=== PATIENT | male | born 1940 | race Caucasian/White ===

== ENCOUNTER 2016-03-16 08:00 | Outpatient (CLI) | payer MEDICARE | END 2016-03-16 08:01 | disposition home or self-care (01) | DX: I48.91 Unspecified atrial fibrillation (principal); Z95.4 Presence of other heart-valve replacement ==

== ENCOUNTER 2016-04-14 11:33 | Outpatient (CLI) | payer MEDICARE | END 2016-04-14 11:34 | disposition home or self-care (01) | DX: I48.91 Unspecified atrial fibrillation (principal); Z95.4 Presence of other heart-valve replacement ==

== ENCOUNTER 2016-05-12 10:07 | Outpatient (CLI) | payer MEDICARE | END 2016-05-12 10:08 | disposition home or self-care (01) | DX: I48.91 Unspecified atrial fibrillation (principal); Z95.4 Presence of other heart-valve replacement ==

== ENCOUNTER 2016-05-23 13:03 | Outpatient (CLI) | payer MEDICARE, OTHER | END 2016-05-23 13:04 | disposition home or self-care (01) | DX: G47.33 Obstructive sleep apnea (adult) (pediatric) (principal) | CPT/HCPCS: 99205; G0463 ==

== ENCOUNTER 2016-05-29 14:11 | Outpatient (CLI) | payer MEDICARE, OTHER | END 2016-05-29 14:12 | disposition home or self-care (01) | DX: N40.1 Benign prostatic hyperplasia with lower urinary tract symptoms (principal); I48.91 Unspecified atrial fibrillation; Z95.4 Presence of other heart-valve replacement ==

== ENCOUNTER 2016-06-28 08:00 | Outpatient (CLI) | payer MEDICARE, OTHER | END 2016-06-28 08:01 | disposition home or self-care (01) | DX: I48.91 Unspecified atrial fibrillation (principal); Z95.4 Presence of other heart-valve replacement ==

== ENCOUNTER 2016-07-26 10:33 | Outpatient (CLI) | payer MEDICARE, OTHER | END 2016-07-26 10:34 | disposition home or self-care (01) | LOC: LAB.F 10:33 | PROVIDERS: ATTEND Internal Medicine Cardiovascular Disease | DX: I48.91 Unspecified atrial fibrillation (principal); Z95.4 Presence of other heart-valve replacement | CPT/HCPCS: 85610 ==

== ENCOUNTER 2016-08-24 10:46 | Outpatient (CLI) | payer MEDICARE, OTHER | END 2016-08-24 10:47 | disposition home or self-care (01) | LOC: LAB.F 10:46 | PROVIDERS: ATTEND Internal Medicine Cardiovascular Disease | DX: I48.91 Unspecified atrial fibrillation (principal); Z95.4 Presence of other heart-valve replacement | CPT/HCPCS: 85610 ==

== ENCOUNTER 2016-09-18 00:48 | Outpatient (CLI) | payer MEDICARE, OTHER | END 2016-09-18 00:49 | disposition critical access hospital (66) | LOC: EMS 00:48 | PROVIDERS: ATTEND Surgery | DX: R50.9 Fever, unspecified (principal); R11.10 Vomiting, unspecified | CPT/HCPCS: A0425; A0429 ==

== ENCOUNTER 2016-09-18 01:11 | Inpatient (IN) | payer MEDICARE, OTHER ==
[2016-09-18] MEDS ORDERED: IBUPROFEN 800 MG TABLET PO STA (01:40)
[2016-09-18] MEDS ORDERED: SODIUM CHLORIDE 0.9% 1,000 ML IV ONE ×5 (01:40→11:53)
[2016-09-18] MEDS ORDERED: ONDANSETRON 4 MG/2 ML VIAL ONE (01:41)
[2016-09-18] MEDS ORDERED: cefTRIAXone 2 GM in SODIUM CHLORIDE 0.9% MINIBAG 100 ML IV STA (01:41)
[2016-09-18] MEDS ORDERED: ONDANSETRON 4 MG/2 ML VIAL IVP STA (01:41)
[2016-09-18] MEDS ORDERED: IBUPROFEN 800 MG TABLET PO ONE (01:41)
[2016-09-18 01:49] LABS: BASOPHILS % (AUTO) 0.5 %; EOSINOPHILS # (AUTO) 0.1 10^3/uL (0.0-0.7); EOSINOPHILS % (AUTO) 0.7 %; HGB - HEMOGLOBIN 12.1 g/dL (14.0-18.0); LYMPHOCYTES # (AUTO) 0.9 10^3/uL (1.5-3.5); LYMPHOCYTES % (AUTO) 10.4 %; MEAN CORPUSCULAR HEMOGLOBIN 31.1 pg (27.0-31.0); MEAN CORPUSCULAR HGB CONC 34.5 g/dL (32.0-36.0); MEAN CORPUSCULAR VOLUME 90.1 fL (80.0-94.0); MEAN PLATELET VOLUME 7.5 fL (7.4-11.4); MONOCYTES # (AUTO) 0.3 10^3/uL (0.0-1.0); NEUTROPHILS # (AUTO) 7.3 10^3/uL (1.5-6.6); NEUTROPHILS % (AUTO) 84.4 %; RED BLOOD COUNT 3.89 10^6/uL (4.70-6.10); RED CELL DISTRIBUTION WIDTH 14.8 % (12.0-15.0); UNCORRECTED WHITE BLOOD COUNT 8.6 x10^3/uL; WHITE BLOOD COUNT 8.6 x10^3/uL (4.8-10.8)
[2016-09-18 02:00] LABS: ALBUMIN/GLOBULIN RATIO 1.1 (1.0-2.2); BILIRUBIN,TOTAL 0.6 mg/dL (0.2-1.0); CALCIUM 8.4 mg/dL (8.5-10.3); CREATININE 1.8 mg/dL (0.6-1.2); POTASSIUM 4.2 mmol/L (3.5-5.0)
[2016-09-18] MEDS ORDERED: cefTRIAXone 2 GM VIAL ONE (02:02)
[2016-09-18] MEDS ORDERED: SODIUM CHLORIDE 0.9% MINIBAG 100 ML IV ONE (02:02)
[2016-09-18 02:03] LABS: BILIRUBIN,URINE NEGATIVE (NEGATIVE)
[2016-09-18 02:10] LABS: UA w/ MICROSCOPIC CHARGE YES
[2016-09-18 02:15] LABS: UR CULTURE IF IND NOT INDICATED; WBC,URINE 0-3 /HPF (0-3)
--- NOTE | 2016-09-18 02:16 | XRAY Preliminary Report ---
Exam: XR Chest 2 View PA/LAT IMPRESSION: 1. Postoperative changes and borderline heart size. 2. Mild bibasilar opacities, right greater than left. Findings could represent atelectasis or infiltr ate. Mild asymmetric interstitial edema not excluded. [facility] SITE ID: [id number]
--- NOTE | 2016-09-18 02:17 | ED Physician Documentation ---
History of Present Illness - Stated complaint Stated Complaint: FEVER - Chief complaint Chief Complaint: Fever - History obtained from History obtained from: Patient, Family (spouse) - Additonal information Additional information: The patient is a 75-year-old male who presents after having an episode of shaking chills at home. He reports having associated shortness of breath, and has had a cough productive of sputum. He denies chest pain, abdominal pain, or dysuria. He did have one episode of vomiting. He denies diarrhea. Past medical history is significant for diverticulitis with sepsis about 3 years ago. He has history of myocardial infarctions x3, mitral valve replacement , and pacemaker placement. Review of Systems Constitutional: reports: Fever, Chills Ears: denies: Tinnitus/ringing Nose: denies: Congestion Throat: denies: Sore throat Cardiac: denies: Chest pain / pressure Respiratory: reports: Dyspnea, Cough GI: reports: Vomiting (x 1). denies: Abdominal Pain : denies: Dysuria Skin: denies: Rash Musculoskeletal: reports: Extremity pain (Chronic right shoulder pain.). denies : Back pain Neurologic: denies: Focal weakness, Numbness, Headache PD PAST MEDICAL HISTORY - Past Medical History Past Medical History: Yes Cardiovascular: Congestive heart failure, Hypertension, High cholesterol, Coronary artery disease, Atrial fibrillation Respiratory: None Neuro: None Endocrine/Autoimmune: None GI: GERD, Colon polyps, Diverticulitis : None HEENT: Chronic vision loss, Chronic hearing loss Psych: Depression, Bipolar disorder, Obsessive compulsive disorder Musculoskeletal: Osteoarthritis, Fatigue, Chronic back pain, Other Derm: Eczema, Psoriasis - Past Surgical History Past Surgical History: Yes Ortho: Hip replacement, Shoulder arthroplasty, Amputation Cardiovascular: Valve replacement, Pacemaker, AICD, Cardiac catheterization, Angioplasty, Other HEENT: Cataracts - Present Medications Home Medications: Ambulatory Orders Medication Instructions Recorded Confirmed Allopurinol 150 mg PO QPM 07/27/13 09/18/16 Aspirin Chewable [[place] 81 mg PO DAILY 07/27/13 09/18/16 Aspirin] Diazepam 5 mg PO DAILY PRN 07/27/13 09/18/16 Digoxin 125 mcg PO DAILY 07/27/13 09/18/16 Dutasteride [Avodart] 0.5 mg PO DAILY 07/27/13 09/18/16 Furosemide [Lasix] 40 mg PO DAILY 07/27/13 09/18/16 Levothyroxine [Synthroid] 1.5 tab PO DAILY 07/27/13 09/18/16 Magnesium Chloride [Slo Mag] 64 mg PO DAILY 07/27/13 09/18/16 Metoprolol Succinate [Toprol Xl] 75 mg PO DAILY 07/27/13 09/18/16 Omeprazole 20 mg PO DAILY 07/27/13 09/18/16 Quetiapine Xr [Seroquel Xr] 200 mg PO DAILY 07/27/13 09/18/16 Sertraline HCl 200 mg PO DAILY 07/27/13 09/18/16 Temazepam 15 mg PO DAILY PRN 07/27/13 09/18/16 Trospium Chloride [Sanctura] 60 mg PO DAILY 07/27/13 09/18/16 Warfarin [Coumadin] 5 mg PO DAILY 07/27/13 09/18/16 Cyanocobalamin/Folic Acid [Vitamin 1 tab PO DAILY 08/12/13 09/18/16 J99-Yonsz Acid Tablet] Hydrocodone/Acetaminophen 1 tab PO ONCE PRN 08/12/13 09/18/16 [Hydrocodone-APAP 10-300] oxyCODONE [Roxicodone] 5 mg PO DAILY PRN 11/18/14 09/18/16 Lisinopril 5 mg PO DAILY 09/18/16 09/18/16 - Allergies Allergies/Adverse Reactions: Allergies Allergy/AdvReac Type Severity Reaction Status Date / Time hydromorphone HCl * Allergy Severe Hallucinati Verified 09/18/16 01:55 [From Dilaudid] ons codeine Allergy Unknown Verified 09/18/16 01:55 duloxetine HCl * Allergy Anxiety Verified 09/18/16 01:55 [From Cymbalta] gabapentin [From Neurontin] Allergy Anxiety Verified 09/18/16 01:55 oxycodone HCl * Allergy Hallucinati Verified 09/18/16 01:57 [From OxyContin] ons - Living Situation Living Situation: reports: With spouse/s.o. Living Arrangement: reports: At home - Social History Does the pt smoke?: No Smoking Status: Former smoker Does the pt drink ETOH?: Yes Does the pt have substance abuse?: No - Immunizations Immunizations are current?: Yes Immunizations: TDAP current <10years - POLST Patient has POLST: No PD ED PE NORMAL - Vitals Vital signs reviewed: Yes (Febrile and tachycardic) - General General: Alert and oriented X 3, Well developed/nourished - HEENT HEENT: Atraumatic, EOMI, Pharynx benign - Neck Neck: Supple, no meningeal sign, No adenopathy, No JVD - Cardiac Cardiac: Other (Rapid rate, regular rhythm, with mechanical click.) - Respiratory Respiratory: Other (Course breath sounds bilaterally, without wheezes.) - Abdomen Abdomen: Soft, Non tender - Back Back: No CVA TTP - Derm Derm: No rash - Extremities Extremities: No calf tenderness / cord, Other (Trace pedal edema bilaterally. Well-healed scar over the anterior aspect of the right shoulder.) - Neuro Neuro: Alert and oriented X 3, No motor deficit, No sensory deficit Results - Vitals Vitals: Vital Signs - 24 hr 09/18/16 09/18/16 09/18/16 01:13 01:45 02:08 Temperature 39.6 C H 39.6 C H Heart Rate 127 H 107 H 107 H Respiratory 33 H 30 H 22 Rate Blood Pressure 159/103 H 143/66 H 129/63 O2 Saturation 90 L 94 96 09/18/16 09/18/16 02:38 02:53 Temperature 39.5 C H 38.3 C H Heart Rate 93 93 Respiratory 18 20 Rate Blood Pressure 114/51 L 105/53 L O2 Saturation 96 99 Oxygen O2 Source Nasal cannula Oxygen Flow Rate 2 - EKG (time done) 02:05 Rate: Rate (enter#) (98) Rhythm: Paced Intervals: RBBB Computer interpretation: Agree with computer - Labs Labs: Laboratory Tests 09/18/16 09/18/16 09/18/16 01:30 01:30 01:30 WBC 8.6 RBC 3.89 L Hgb 12.1 L Hct 35.0 L MCV 90.1 MCH 31.1 H MCHC 34.5 RDW 14.8 Plt Count 158 MPV 7.5 Neut # 7.3 H Lymph # 0.9 L [place] # 0.3 Eos # 0.1 Baso # 0.0 Absolute Nucleated RBC 0.00 Nucleated RBCs 0.0 PT INR Sodium 133 L Potassium 4.2 Chloride 100 L Carbon Dioxide 23 Anion Gap 10.0 BUN 34 H Creatinine 1.8 H Estimated GFR (MDRD) 37 L Glucose 143 H Lactic Acid Calcium 8.4 L Total Bilirubin 0.6 AST 36 ALT 26 Alkaline Phosphatase 69 Troponin I 0.04 B-Natriuretic Peptide Total Protein 8.0 Albumin 4.1 Globulin 3.9 Albumin/Globulin Ratio 1.1 Lipase 15 L Urine Color Urine Clarity Urine pH Ur Specific [place] Urine Protein Urine Glucose (UA) Urine Ketones Urine Occult Blood Urine Nitrite Urine Bilirubin Urine Urobilinogen Ur Leukocyte Esterase Urine RBC Urine WBC Ur Squamous Epith Cells Urine Bacteria Ur Microscopic Review Urine Culture Comments 09/18/16 09/18/16 09/18/16 01:30 01:30 01:30 WBC RBC Hgb Hct MCV MCH MCHC RDW Plt Count MPV Neut # Lymph # [place] # Eos # Baso # Absolute Nucleated RBC Nucleated RBCs PT INR Sodium Potassium Chloride Carbon Dioxide Anion Gap BUN Creatinine Estimated GFR (MDRD) Glucose Lactic Acid 2.5 H Calcium Total Bilirubin AST ALT Alkaline Phosphatase Troponin I B-Natriuretic Peptide 153 H Total Protein Albumin Globulin Albumin/Globulin Ratio Lipase Urine Color YELLOW Urine Clarity CLEAR Urine pH 6.0 Ur Specific [place] 1.010 Urine Protein TRACE Urine Glucose (UA) NEGATIVE Urine Ketones NEGATIVE Urine Occult Blood MODERATE H Urine Nitrite NEGATIVE Urine Bilirubin NEGATIVE Urine Urobilinogen 0.2 (NORMAL) Ur Leukocyte Esterase NEGATIVE Urine RBC 0-5 Urine WBC 0-3 Ur Squamous Epith Cells RARE Squamous Urine Bacteria None Seen Ur Microscopic Review INDICATED Urine Culture Comments NOT INDICATED 09/18/16 02:11 WBC RBC Hgb Hct MCV MCH MCHC RDW Plt Count MPV Neut # Lymph # [place] # Eos # Baso # Absolute Nucleated RBC Nucleated RBCs PT 29.1 H INR 2.6 H Sodium Potassium Chloride Carbon Dioxide Anion Gap BUN Creatinine Estimated GFR (MDRD) Glucose Lactic Acid Calcium Total Bilirubin AST ALT Alkaline Phosphatase Troponin I B-Natriuretic Peptide Total Protein Albumin Globulin Albumin/Globulin Ratio Lipase Urine Color Urine Clarity Urine pH Ur Specific [place] Urine Protein Urine Glucose (UA) Urine Ketones Urine Occult Blood Urine Nitrite Urine Bilirubin Urine Urobilinogen Ur Leukocyte Esterase Urine RBC Urine WBC Ur Squamous Epith Cells Urine Bacteria Ur Microscopic Review Urine Culture Comments - Rads (name of study) 2-view CXR Radiology: Prelim report reviewed, EMP read contemporaneously, See rad report ( 1. Postoperative changes and borderline heart size. 2. Mild bibasilar opacities , right greater than left. Findings could represent atelectasis or infiltrate. Mild asymmetric interstitial edema not excluded.) PD MEDICAL DECISION MAKING - ED course Complexity details: reviewed old records, reviewed results, re-evaluated patient , considered differential, d/w patient, d/w family, d/w healthcare network consultant ED course: The patient's presentation is most consistent with systemic inflammatory response syndrome, most likely from pneumonia. His chest x-ray reveals haziness in the right lower lobe. His urinalysis is negative. Blood cultures are pending. His abdomen is benign. Treatment in the emergency department included administration of ibuprofen 800 mg orally, normal saline 2 L IV, Zofran 4 mg IV, and ceftriaxone 2 g IV. His temperature subsequently came down to 100.9, and his tachycardia resolved. Tylenol 650 mg was administered orally. I discussed his condition with the Hospitalist, Dr. Lundberg, who will admit him for further evaluation and treatment. Departure - Departure Disposition: 66 [facility] DC/Xfer Clinical Impression: SIRS (systemic inflammatory response syndrome), Adequate anticoagulation on anticoagulant therapy Pneumonia Qualifiers: Pneumonia type: due to unspecified organism Laterality: right Lung location: lower lobe of lung Qualified Code(s): J18.1 - Lobar pneumonia, unspecified organism Condition: Stable
--- NOTE | 2016-09-18 02:19 | XRAY Report ---
EXAM: CHEST RADIOGRAPHY EXAM DATE: 09/18/2016 02:02 AM. CLINICAL HISTORY: Cough with dyspnea. COMPARISON: 11/18/2014. TECHNIQUE: 2 views. FINDINGS: Lungs/Pleura: Mild bibasilar opacities, right greater than left. No signal pleural effusion. No pneum othorax. Mediastinum: Heart size normal to upper normal. Median sternotomy and valve surgery. Tortuous atheros clerotic aorta. Other: Bilateral shoulder prostheses. Implanted pacemaker is unchanged. IMPRESSION: 1. Postoperative changes and borderline heart size. 2. Mild bibasilar opacities, right greater than left. Findings could represent atelectasis or infiltr ate. Mild asymmetric interstitial edema not excluded. [facility] Referring Provider Line: [phone] SITE ID: [id number]
[2016-09-18 02:34] LABS: INR 2.6 (0.8-1.2); PT - PROTHROMBIN TIME 29.1 secs (9.9-12.6)
[2016-09-18] MEDS ORDERED: ACETAMINOPHEN 325 MG TABLET PO PRN (03:20)
[2016-09-18] MEDS ORDERED: ONDANSETRON 4 MG/2 ML VIAL IVP PRN (03:20)
[2016-09-18] MEDS ORDERED: ONDANSETRON ODT 4 MG TABLET TL PRN (03:20)
[2016-09-18] MEDS ORDERED: SODIUM CHLORIDE FLUSH 0.9% 10 ML SYRINGE IVP PRN ×2 (03:20→10:57)
[2016-09-18] MEDS ORDERED: HYDROcod/ACETAM 5/325 MG TABLET PO PRN (03:20)
[2016-09-18] MEDS ORDERED: oxyCODONE 5 MG TABLET PO PRN (03:24)
[2016-09-18] MEDS ORDERED: diazePAM 5 MG TABLET PO PRN (03:24)
[2016-09-18] MEDS ORDERED: TEMAZEPAM 15 MG CAPSULE PO PRN ×2 (03:24→10:12)
[2016-09-18] MEDS ORDERED: ACETAMINOPHEN 325 MG TABLET PO STA (03:35)
[2016-09-18] MEDS ORDERED: SODIUM CHLORIDE 0.9% 1,000 ML IV SCH (04:00)
[2016-09-18] MEDS ORDERED: ALBUTEROL NEB 2.5 MG/3 ML INH SCH (05:00)
[2016-09-18] MEDS ORDERED: AZITHROMYCIN INJ 500 MG in SODIUM CHLORIDE 0.9% 250 ML IV SCH (05:00)
[2016-09-18] MEDS ORDERED: SODIUM CHLORIDE FLUSH 0.9% 10 ML SYRINGE IVP SCH ×2 (06:00→14:00)
[2016-09-18 06:37] LABS: INR 2.7 (0.8-1.2); PT - PROTHROMBIN TIME 31.1 secs (9.9-12.6)
[2016-09-18] MEDS ORDERED: SACCHAROMYCES BOULARDII 250 MG CAPSULE PO SCH (08:00)
[2016-09-18] MEDS ORDERED: ASPIRIN CHEW 81 MG TABLET PO SCH (09:00)
[2016-09-18] MEDS ORDERED: POLYETHYLENE GLYCOL 3350 17 GM PACKET PO SCH (09:00)
[2016-09-18] MEDS ORDERED: LISINOPRIL 5 MG TABLET PO SCH (09:00)
[2016-09-18] MEDS ORDERED: SERTRALINE 50 MG TABLET PO SCH (09:00)
[2016-09-18] MEDS ORDERED: FUROSEMIDE 40 MG TABLET PO SCH (09:00)
[2016-09-18] MEDS ORDERED: VITAMIN B12 FOLIC ACID PO SCH (09:00)
[2016-09-18] MEDS ORDERED: MAGNESIUM CHLORIDE 64 MG PO SCH (09:00)
[2016-09-18] MEDS ORDERED: METOPROLOL SUCCINATE 50 MG TABLET PO SCH (09:00)
[2016-09-18] MEDS ORDERED: SANCTURA PO SCH (09:00)
[2016-09-18] MEDS ORDERED: DIGOXIN 125 MCG TABLET PO SCH (09:00)
[2016-09-18] MEDS ORDERED: SODIUM CHLORIDE 0.9% 500 ML IV ONE (10:57)
[2016-09-18] MEDS ORDERED: ACETAMINOPHEN 1,000 MG/100 ML 100 ML IV ONE (11:53)
[2016-09-18] MEDS ORDERED: PIPERACILLIN/TAZOBACTAM 3.375 GM in SODIUM CHLORIDE 0.9% MINIBAG 100 ML IV SCH (12:00)
[2016-09-18] MEDS ORDERED: FINASTERIDE 5 MG TABLET PO SCH (12:00)
[2016-09-18 12:01] VITALS: BP 132/80
--- NOTE | 2016-09-18 12:35 | Discharge Plan ---
Discharge Plan Disposition: 02 Transfer Acute Care Hosp Condition: Critical Diet: Cardiac No Smoking: If you smoke, Please STOP! Call for help.
--- NOTE | 2016-09-18 12:38 | DISCHARGE SUMMARY ---
Discharge Summary Admit Date: 09/18/16 Discharge Date: 09/18/16 Discharging Provider: Ervin Blanca MD Primary Care Provider: Alexander Gilmore Code Status: Attempt Resuscitation Condition at Discharge: Critical Discharge Disposition: 02 Transfer Acute Care Hosp Discharge Facility Name: [facility] - DIAGNOSES Admission Diagnoses: 1. Severe Sepsis 2. Community-acquired pneumonia 3. History of prostatic heart valve 4. Hypertension 5. Chronic pain 6. Hyperglycemia 7. Dystonia Discharge Diagnoses with Status of Each Condition: 1. Severe sepsis - Critical Condition needing transfer to [facility] 2. Gram-positive bacteremia - Blood cx positive for gram positive cocci in pairs /chains 3. Suspected endocarditis - Echo suspicious for mitral valve vegetation but TTE so could not get a clear image 4. Congestive heart failure - Patient with increasing hypoxia after receiving several IV fluid boluses for hypotension 5. History of mitral valve replacement on Coumadin - on coumadin 6. Acute on chronic renal failure - Route Agent 1.8 on presentation and patient hypotensive and septic 7. Hypertension - hypotensive requiring IV fluid from sepsis therefore held meds - HOSPITAL COURSE Hospital Course: Patient is a 75-year-old gentleman with a past medical history significant for mitral valve replacement in [address] [facility] mitral valve on Coumadin, congestive heart failure, depression, gout, CKD stage III, hypertension, hyperlipidemia, osteoarthritis with hip and shoulder replacement and pacemaker for ventricular arrhythmia who presented to the emergency department with a chief complaint of pleuritic right-sided chest pain going on for 2 weeks. The patient stated that he had had dental work done 2 weeks ago but did not receive any prophylactic antibiotics. The patient states that since then he's been having this right-sided pleuritic chest pain and today it was accompanied by 10 minutes of uncontrollable shaking and an abrupt onset of fever, rigors and shortness of air lasting nearly 24 hours. The patient also admitted to a chronic cough and PND that had been worse over the last several days. The patient on presentation to the emergency department was febrile with a temperature of 39 tachycardic in the 120s but he was normotensive and not hypoxic. The patient's lactic acid was elevated at 2.4. Patient had coarse airway sounds and his chest x-ray revealed bibasilar infiltrates right greater than left. These were mild infiltrates and did not seem to fit his clinical picture on presentation. The patient has a previous history of endocarditis and a spinal abscess. He had a previous admission at [facility] in 08/2013 at which time his presented with sepsis secondary to acute diverticulitis and was found to have strep infantarius species and had to be transferred to [facility] at that time with suspicion for endocarditis. After only a few hours on the medical the patient's blood cultures returned positive with gram-positive cocci in pairs/chains. Around the same time the patient became increasingly septic. The patient was having uncontrollable rigors and was running a fever. The patient also became hypotensive with blood pressure in the 90 systolic. The patient was given several boluses with saline. The patient had a stat echocardiogram which showed a possible vegetation on the mitral valve with concern for endocarditis. The patient was given IV vancomycin and Zosyn and we spoke with Dr. Chaparro Deleon at [facility] who accepted the patient in transfer given his severe sepsis with possible endocarditis and bacteremia with gram-positive cocci in pairs and chains. We were only able to perform a TTE as we do not have the capabilities of doing a transesophageal echo. The patient will need a transesophageal echo once he reaches [facility]. The patient was becoming increasingly hypoxic prior to discharge this was likely secondary to receiving so much IV fluid. Patient was up to 10 L on the Oxymizer prior to discharge. The patient's blood pressure was stable prior to discharge we did place 2 large-bore IVs but the patient did not have a central line at the time of discharge. - ALLERGIES Allergies/Adverse Reactions: Allergies Allergy/AdvReac Type Severity Reaction Status Date / Time hydromorphone HCl * Allergy Severe Hallucinati Verified 09/18/16 01:55 [From Dilaudid] ons codeine Allergy Unknown Verified 09/18/16 01:55 duloxetine HCl * Allergy Anxiety Verified 09/18/16 01:55 [From Cymbalta] gabapentin [From Neurontin] Allergy Anxiety Verified 09/18/16 01:55 oxycodone HCl * Allergy Hallucinati Verified 09/18/16 01:57 [From OxyContin] ons - MEDICATIONS Home Medications: Ambulatory Orders Medication Instructions Recorded Confirmed Allopurinol 150 mg PO QPM 07/27/13 09/18/16 Aspirin Chewable [St Jimbo 81 mg PO DAILY 07/27/13 09/18/16 Aspirin] Diazepam 2.5 - 5 mg PO Q8H PRN 07/27/13 09/18/16 Digoxin 125 mcg PO DAILY 07/27/13 09/18/16 Dutasteride [Avodart] 0.5 mg PO DAILY 07/27/13 09/18/16 Furosemide [Lasix] 40 mg PO DAILY 07/27/13 09/18/16 Levothyroxine [Synthroid] 75 mcg PO DAILY 07/27/13 09/18/16 Magnesium Chloride [Slo Mag] 64 mg PO BID 07/27/13 09/18/16 Metoprolol Succinate [Toprol Xl] 75 mg PO DAILY 07/27/13 09/18/16 Omeprazole 20 mg PO DAILY 07/27/13 09/18/16 Quetiapine Xr [Seroquel Xr] 300 mg PO DAILY 07/27/13 09/18/16 Sertraline HCl 100 mg PO BID 07/27/13 09/18/16 Temazepam 15 mg PO QPM PRN 07/27/13 09/18/16 Trospium Chloride [Sanctura] 60 mg PO DAILY 07/27/13 09/18/16 Warfarin [Coumadin] 5 mg PO SUTUTHSA 07/27/13 09/18/16 Cyanocobalamin/Folic Acid [Vitamin 1 tab PO DAILY 08/12/13 09/18/16 B44-Rspiz Acid Tablet] Hydrocodone/Acetaminophen 1 - 2 tab PO Q6H PRN 08/12/13 09/18/16 [Hydrocodone-APAP 10-300] Lisinopril 5 mg PO DAILY 09/18/16 09/18/16 Warfarin [Coumadin] 2.5 mg PO MOWEFR 09/18/16 09/18/16 - PHYSICAL EXAM AT DISCHARGE General Appearance: positive: Alert, Moderate distress (tachypnic, short of breath with rigors, shaking uncontrollably ) Eyes Bilateral: positive: Normal inspection, PERRL, EOMI, No lid inflammation, Conjunctivae nml, No scleral icterus ENT: positive: ENT inspection nml, Pharynx nml, Dry mucous membranes. negative : Purulent nasal drainage, Pharyngeal erythema, Oral lesions Neck: positive: Nml inspection, Thyroid nml, No JVD, Trachea midline. negative : Thyromegaly, Lymphadenopathy (R), Lymphadenopathy (L), Carotid bruit, Tracheal deviation Respiratory: positive: Chest non-tender, Rales (bibasilar), Rhonchi (right base) Cardiovascular: positive: No murmur, No gallop, Tachycardia Peripheral Pulses: positive: 2+ Abdomen: positive: Non-tender, No organomegaly, Nml bowel sounds, Other ( Distended, obese) Back: positive: Nml inspection. negative: CVA tenderness (R), CVA tenderness (L ) Skin: positive: No rash, Dry, Other (Flushed appearance) Extremities: positive: Full ROM, Nml appearance, Pedal edema Neurologic/Psychiatric: positive: Oriented x3, CN's nml (2-12), Motor nml, Sensation nml - LABS Result Diagrams: 09/18/16 01:30 09/18/16 01:30 Other Lab Results: Laboratory Results WBC 8.6 x10^3/uL (4.8-10.8) 09/18/16 01:30 RBC 3.89 10^6/uL (4.70-6.10) L 09/18/16 01:30 Hgb 12.1 g/dL (14.0-18.0) L 09/18/16 01:30 Hct 35.0 % (42.0-52.0) L 09/18/16 01:30 MCV 90.1 fL (80.0-94.0) 09/18/16 01:30 MCH 31.1 pg (27.0-31.0) H 09/18/16 01:30 MCHC 34.5 g/dL (32.0-36.0) 09/18/16 01:30 RDW 14.8 % (12.0-15.0) 09/18/16 01:30 Plt Count 158 10^3/uL (130-450) 09/18/16 01:30 MPV 7.5 fL (7.4-11.4) 09/18/16 01:30 Neut # 7.3 10^3/uL (1.5-6.6) H 09/18/16 01:30 Lymph # 0.9 10^3/uL (1.5-3.5) L 09/18/16 01:30 [place] # 0.3 10^3/uL (0.0-1.0) 09/18/16 01:30 Eos # 0.1 10^3/uL (0.0-0.7) 09/18/16 01:30 Baso # 0.0 10^3/uL (0.0-0.1) 09/18/16 01:30 Absolute Nucleated RBC 0.00 x10^3/uL 09/18/16 01:30 Nucleated RBCs 0.0 /100WBC 09/18/16 01:30 PT 31.1 secs (9.9-12.6) H 09/18/16 05:10 INR 2.7 (0.8-1.2) H 09/18/16 05:10 Sodium 133 mmol/L (135-145) L 09/18/16 01:30 Potassium 4.2 mmol/L (3.5-5.0) 09/18/16 01:30 Chloride 100 mmol/L (101-111) L 09/18/16 01:30 Carbon Dioxide 23 mmol/L (21-32) 09/18/16 01:30 Anion Gap 10.0 (6-13) 09/18/16 01:30 BUN 34 mg/dL (6-20) H 09/18/16 01:30 Creatinine 1.8 mg/dL (0.6-1.2) H 09/18/16 01:30 Estimated GFR (MDRD) 37 (>89) L 09/18/16 01:30 Glucose 143 mg/dL (70-100) H 09/18/16 01:30 Lactic Acid 2.5 mmol/L (0.5-2.2) H 09/18/16 01:30 Calcium 8.4 mg/dL (8.5-10.3) L 09/18/16 01:30 Total Bilirubin 0.6 mg/dL (0.2-1.0) 09/18/16 01:30 AST 36 IU/L (10-42) 09/18/16 01:30 ALT 26 IU/L (10-60) 09/18/16 01:30 Alkaline Phosphatase 69 IU/L (42-121) 09/18/16 01:30 Troponin I 0.04 ng/mL (<0.49) 09/18/16 01:30 B-Natriuretic Peptide 153 pg/mL (5-100) H 09/18/16 01:30 Total Protein 8.0 g/dL (6.7-8.2) 09/18/16 01:30 Albumin 4.1 g/dL (3.2-5.5) 09/18/16 01:30 Globulin 3.9 g/dL (2.1-4.2) 09/18/16 01:30 Albumin/Globulin Ratio 1.1 (1.0-2.2) 09/18/16 01:30 Lipase 15 U/L (22-51) L 09/18/16 01:30 Urine Color YELLOW 09/18/16 01:30 Urine Clarity CLEAR (CLEAR) 09/18/16 01:30 Urine pH 6.0 PH (5.0-7.5) 09/18/16 01:30 Ur Specific [place] 1.010 (1.002-1.030) 09/18/16 01:30 Urine Protein TRACE mg/dL (NEGATIVE) 09/18/16 01:30 Urine Glucose (UA) NEGATIVE mg/dL (NEGATIVE) 09/18/16 01:30 Urine Ketones NEGATIVE mg/dL (NEGATIVE) 09/18/16 01:30 Urine Occult Blood MODERATE (NEGATIVE) H 09/18/16 01:30 Urine Nitrite NEGATIVE (NEGATIVE) 09/18/16 01:30 Urine Bilirubin NEGATIVE (NEGATIVE) 09/18/16 01:30 Urine Urobilinogen 0.2 (NORMAL) E.U./dL (NORMAL) 09/18/16 01:30 Ur Leukocyte Esterase NEGATIVE (NEGATIVE) 09/18/16 01:30 Urine RBC 0-5 /HPF (0-5) 09/18/16 01:30 Urine WBC 0-3 /HPF (0-3) 09/18/16 01:30 Ur Squamous Epith Cells RARE Squamous (<= Few) 09/18/16 01:30 Urine Bacteria None Seen /HPF (None Seen) 09/18/16 01:30 Ur Microscopic Review INDICATED 09/18/16 01:30 Urine Culture Comments NOT INDICATED 09/18/16 01:30 microbiology: preliminary Gram-positive cocci in pairs/chain Microbiology 09/18/16 01:30 Blood Culture - Preliminary Blood - Left Arm Microbiology 09/18/16 01:30 Blood - Left Arm Blood Culture - Preliminary Microbiology 09/18/16 01:30 Blood - Left Arm Blood Culture - Preliminary - DIAGNOSTIC IMAGING Diagnostic Imaging Results: Final report reviewed Diagnostic Imaging Results Comments: Echocardiogram: Left ventricular systolic function is mild/moderately impaired with an ejection fraction of 40-45% Mild to moderate aortic valve sclerosis Bioprosthetic valve in the mitral position with a peak/mean pressure gradient of 26 mm mercury/9 mmHg. As compared to prior pressure gradients have increased from the peak/mean of 13 mm mercury/5 mmHg reported 01/2016. Echogenicity of the prosthesis concerning for endocarditis. Right ventricular systolic pressure at rest is 68 mmHg which is increased compared to 39 mm mercury 01/2016. chest x-ray Impression: 1 post operative changes and borderline heart size 2. Mild basilar opacities, right greater than left. Findings could represent atelectasis or infiltrate. Mild asymmetric interstitial edema not excluded EKG Ventricular paced complexes - FOLLOW UP Follow Up: Transferred to [facility]
[2016-09-18] MEDS ORDERED: VANCOMYCIN INJ 2 GM in SODIUM CHLORIDE 0.9% 500 ML IV SCH (13:00)
[2016-09-18] MEDS ORDERED: WARFARIN 5 MG TABLET PO SCH (14:00)
[2016-09-18] MEDS ORDERED: ALLOPURINOL 100 MG TABLET PO SCH (21:00)
--- NOTE | 2016-09-18 21:32 | HISTORY & PHYSICAL EXAMINATION ---
DATE OF ADMISSION: 09/18/2016 PRIMARY CARE PROVIDER: Bobo Morse MD. ADMITTING PROVIDER: Danita Lundberg MD. CHIEF COMPLAINT: Fever, chills, and cough. The patient initially states that he was in "good health" until yesterday evening. He had an abrupt onset of fevers, chills, and just feeling horrible. But in discreet questioning and backing up in his story, he was able to tell me that he started having pleuritic chest pain 2 weeks ago. The chest pain was nonspecific, not associated with rest or exertion, but definitely pleuritic. He said he had a chest x-ray done, but when I look in the EMR there is no chest x- ray done since Nov 2014. He is not clear about whether it was done here or locally. He said that accompanying the pleuritic chest pain would be 10 to 20 minutes of shaking and then the shaking would go away. He said his appetite was fine. He always has a runny nose that is very overactive and that sometimes settles in his chest to cause him an occasional cough. The cough was unchanged. All of this abruptly changed yesterday at 6 p.m. when he had increased cough, increased congestion that was productive of phlegm, severe fevers, sweats, and he emphasizes how abrupt in onset it was. The only other pertinent positive in his history is that he had dental surgery 2 weeks ago. He has had 2 teeth pulled. He did not have any prophylactic antibiotics that he remembers in spite of his history of mitral valve replacement an in spite of asking the dentist why he wasn't getting antibiotics. He was seen in the emergency room by Dr. Greenberg. His presenting temperature was 39.6 with a pulse of 127, blood pressure 159/103, respiratory rate of 33, and 90 % on room air. He had coarse breath sounds bilaterally without wheezing. White cell count was normal at 8.6 and chest x-ray showed faint bibasilar opacities. As such he is extensively being admitted as pneumonia causing sepsis. PAST MEDICAL HISTORY: 1. Major depressive disorder. 2. St. Bear mitral valve replacement, on Coumadin since 2003. 3. V-tach with 2 resuscitations with his mitral valve replacement and he has a pacer in place. 4. Hypertension. 5. Chronic back pain in the lumbar spine secondary to work related injuries. 6. History of gout. 7. Hyperlipidemia. 8. Hypothyroidism. 9. Osteoarthritis with bilateral total hip replacement as well as right shoulder replacement. 10. Diverticulitis August 2013. 11. Fall down steps with head injury July 2013. 12. Chronic kidney disease stage III. 13. Obstructive sleep apnea. Intermittent CPAP use. Severe restless leg discomfort. Replacement CPAP machine we ordered 05/23/2016. ALLERGIES: 1. CODEINE. 2. CYMBALTA. 3. HYDROMORPHONE. 4. GABAPENTIN. 5. OXYCODONE. MEDICATION LIST: 1. Allopurinol 150 mg p.o. q. p.m. 2. Avodart 0.5 mg p.o. daily. 3. Coumadin 5 mg daily. 4. Valium 5 mg daily. 5. Digoxin 0.125 mg daily. 6. Hydrocodone with acetomorphine 5/325, once daily p.r.n. 7. Lasix 40 mg daily. 8. Lisinopril 5 mg daily. 9. Omeprazole 20 mg daily. 10. Oxycodone 5 mg daily p.r.n. even tho it is listed in allergy list. 11. Sanctura/trospium chloride 60 mg daily. 12. Seroquel extended release 200 mg daily. 13. Sertraline 200 mg daily. 14. Slow mag 64 mg daily. 15. Aspirin 81 mg a day. 16. Synthroid 75 mcg tablet, 1-1/2 tablets daily. 17. Temazepam 50 mg at night, p.r.n. daily. 18. Toprol XL 75 mg daily. 19. Vitamin B12 with folic acid over the counter 1 tablet daily. 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 to his first . Worked in [employer] and retired in [employer]. Lives in his own home with his . Currently one of his sons from [place] is visiting. He describes himself as independent, does light housework, is able to feed and dress himself. Denies recreational substance abuse. FAMILY HISTORY: Dad at age 83 of lung problems. Mom at age 75 of heart problems with diabetes. One brother has had blood clots in his legs, 1 brother is healthy. Three sons are healthy without diabetes, cancer or heart attack or stroke in them. REVIEW OF SYSTEMS: CONSTITUTIONAL: He feels like he has been stable until yesterday. In spite of the pleuritic chest pain he denied sweats, appetite change in the last week and no anticipated, unanticipated weight loss in the last few months. ENT: Poor dentition which has resulted in 2 teeth being pulled. Denies glaucoma or cataracts. Has no problems with hearing. No blurred vision. PULMONARY: Chronic post nasal drip causing an occasional mildly productive cough. That is chronic and only recently worsened in the last week. Shortness of breath has accompanied this. Usually he is not short of breath. Pleuritic chest pain as above. CARDIAC: Denies orthopnea, edema. His pleuritic chest pain is on the right, not on the left. Valvular heart disease positive as above. No history of myocardial infarction. Does not recognize the word atrial fibrillation as a diagnosis. GI: Has coryza pharyngeal dysphasia. Gets worse with anxiety. Denies esophageal dysphagia. Denies abdominal pain. Appetite was fine until yesterday. He is prone to constipation. No blood in his stool. : He has decreased stream, increased frequency, increased urgency, but no dysuria, no flank pain, no hematuria. Has been chronic for a few years now and he started having to take medicine for that. He does not know if the medicine helps or not JOINTS: Chronic low back pain. Chronic right shoulder pain. This results in the use of Valium, oxycodone and hydrocodone. He says the pain is stable, unchanged. He has morning stiffness in all of his joints and they gradually loosen up as the morning goes on, but no history of effusions in any joints. SKIN: No rashes, no new lesions. PSYCH: Depression off and on. Denies hallucinations or delusions. Denies suicidal ideation. NEUROLOGICAL: Denies seizures, syncope. He endorses some mild memory loss. Starting to have more and more problems with his balance over the last few months. He is able to bike on a stable bike anywhere between 5 to 6 miles in 1 direction to make it a 10 to 12 mile round trip. He does this about 2 to 3 times a week PHYSICAL EXAMINATION: Vital SIGNS: His temperature has been unusually high in the emergency room. He has received Tylenol and ibuprofen and in spite of that his temperature was 38.9 until 3:30 this morning and now he is 37.9. Pulse has gradually gone down from 127 and is now 80. Blood pressure was initially 159/103, is now 104/53. Respirations were initially 33 and now 17. He is 100% saturated on 2 liters. GENERAL: This patient is a morbidly obese, pleasant white male who looks stated age and is alert and oriented. No tachypnea, no tachycardiac at this point. HEENT: Head and neck shows him to have teeth that are missing and low hoarse voice. Pupils are reactive. No facial asymmetry. Nasal tone of voice. Neck is supple with shotty adenopathy and no goiter or bruits. LUNGS: Coarse bilateral upper and mid lobe breath sounds. No crackles, wheezing or rhonchi. Tachypnea in the 30's has now slowed down to 18 or 17 breaths a minute and he has no acute distress talking to me PMI is normally paced and he had a hard S2, distant cardiac tones, not hearing a murmur. PMI normally placed. He does have a midline sternal incision that is well healed and closed. ABDOMEN: Obese, soft, nontender, no organomegaly. Normal bowel sounds. No masses. EXTREMITIES: Warm without clubbing, cyanosis, or edema. Ankles,knees, hips, wrists, shoulders and elbows are palpated. While he has a right shoulder scar, there are no effusions, no heat. NEURO: The patient is alert and oriented to person, place, and time. He can follow 2 step commands and a lucid historian. During the exam he has choreiform movements at all times that occasionally become jerking movements. He will grasp the bed rails and jerk the bed rails. I asked him how long this has been going on and he says for several months and is getting worse. This jerking movement has accompanied his increased balance issues. The cranial nerves appear intact with 1 not tested. Gross focal strength is normal in the upper and lower extremity. No tremors. Again, it is more of a choreiform, constant jerking movement of hands and moving of feet. Sodium is 133, potassium 4.2, BUN 34, creatinine 1.8, usual BUN is 31 and creatinine 1.6. Random glucose is 143, lactic acid is 2.5. Liver enzymes normal. BNP is 153, troponin less than 0.04. White cell count is 8.6, hemoglobin 12.1, hematocrit 35, platelets 158. INR is 2.6. Urinalysis has moderate occult blood, but otherwise negative. Chest x-ray with postoperative changes, borderline heart size, mild bibasilar opacities right greater than left. ASSESSMENT AND PLAN: 1. Sepsis. Criteria includes fever, tachycardia, and elevated lactic acid. The source of the sepsis is being attributed to pneumonia on the basis of his chest x-ray. However, in speaking to the patient he shared with me about the dental procedure and no prophylactic antibiotics. I do not know if his history is accurate. Tomorrow morning will have to call the dentist office. Blood cultures have already been ordered. Will check echocardiogram to make sure mitral valve is working correctly and that the possibility of endocarditis has been evaluated. No urinary tract infection at this time and no intraabdominal process with a benign belly exam. Plan for greater than 2 midnights with IV antibiotic therapy. Will adjust antibiotic therapy on the basis of blood cultures or identification of the source. Continue to check CBC's on a daily basis. 2. History of mitral valve replacement with St. Bear valve. Check echo for followup. His muck farmer is Dr. Carmen Kang at the [facility]. Her phone number is [phone] with fax [phone]. 3. Hypertension. Initially elevated when presented to the emergency room, now mildly hypotensive. Will continue to monitor, give medications from the outpatient setting. 4. Chronic pain syndrome. His allergy list is puzzling in that he has medicines on his list that he is theoretically allergic to. I will reorder his hydrocodone p.r.n. 5. Isolated hyperglycemia. No history of diabetes. Check A1c. 6. Movement disorder, with choreiform movements and a described history of increasing falls. This is not Parkinsonism and is not a resting pin rolling tremor. I told him that I would recommend he see Neurology for an opinion as to the cause of the disorder. 7. FULL CODE STATUS. HE INITIALLY STATED THAT HE DID NOT WANT TO DECIDE AND WOULD LET HIS DECIDE FOR HIM. I GENTLY EXPLAINED THAT THAT IS A BIG BURDEN TO LAY ON SOMEONE WITHOUT ANY INDICATION OF WHERE HE STOOD ON THIS ISSUE. HE WAS ABLE TO SAY HE DOES NOT WANT TO END UP IN A HALFWAY IF HE IS A VEGETABLE, OR DOES NOT KNOW HIS FAMILY. HE IS WILLING TO LIVE IN ASSISTED LIVING FACILITY OR PENITENTIARY FACILITY DEPENDING ON HIS DISABILITY. WITH THAT BASIS, HE HAS DECIDED TO BE A FULL CODE. 8. DVT Prophylaxis will be ongoing Coumadin plus compression stockings. JOB #: [id number] EXT JOB #:[id number] [email or web address]
[2016-09-19] MEDS ORDERED: cefTRIAXone 2 GM in SODIUM CHLORIDE 0.9% MINIBAG 100 ML IV SCH (02:00)
[2016-09-19] MEDS ORDERED: LEVOTHYROXINE 75 MCG TABLET PO SCH (11:00)
== END 2016-09-18 12:25 | disposition short-term general hospital (02) | DRG 872 ==
LOC: EDUNIT# → ED 01:11 → SUPCPDRO 01:11 → MS 03:20 → ICU 11:09
PROVIDERS: ADMIT Specialist; ATTEND Internal Medicine
DX: J18.1 Lobar pneumonia, unspecified organism (principal); I11.0 Hypertensive heart disease with heart failure; I50.9 Heart failure, unspecified; I25.10 Atherosclerotic heart disease of native coronary artery without angina pectoris; E78.00 Pure hypercholesterolemia, unspecified; I48.91 Unspecified atrial fibrillation; K21.9 Gastro-esophageal reflux disease without esophagitis; H54.7 Unspecified visual loss; H91.90 Unspecified hearing loss, unspecified ear; F31.9 Bipolar disorder, unspecified; F42.9 Obsessive-compulsive disorder, unspecified; M19.90 Unspecified osteoarthritis, unspecified site; A41.89 Other specified sepsis; M54.9 Dorsalgia, unspecified; L40.9 Psoriasis, unspecified; Z87.891 Personal history of nicotine dependence; I25.2 Old myocardial infarction; T82.6XXA Infection and inflammatory reaction due to cardiac valve prosthesis, initial encounter; I38 Endocarditis, valve unspecified; Z96.649 Presence of unspecified artificial hip joint; N17.9 Acute kidney failure, unspecified; I13.0 Hypertensive heart and chronic kidney disease with heart failure and stage 1 through stage 4 chronic kidney disease, or unspecified chronic kidney disease; I50.20 Unspecified systolic (congestive) heart failure; G25.9 Extrapyramidal and movement disorder, unspecified; R65.20 Severe sepsis without septic shock; Y71.2 Prosthetic and other implants, materials and accessory cardiovascular devices associated with adverse incidents; R09.02 Hypoxemia; N18.3 Chronic kidney disease, stage 3 (moderate); I95.9 Hypotension, unspecified; M10.9 Gout, unspecified; E78.5 Hyperlipidemia, unspecified; E03.9 Hypothyroidism, unspecified; I35.8 Other nonrheumatic aortic valve disorders; G47.33 Obstructive sleep apnea (adult) (pediatric); G25.81 Restless legs syndrome; R47.02 Dysphasia; R33.9 Retention of urine, unspecified; R39.15 Urgency of urination; R35.0 Frequency of micturition; G89.29 Other chronic pain; M25.511 Pain in right shoulder; M54.5 Low back pain; F32.9 Major depressive disorder, single episode, unspecified; E66.01 Morbid (severe) obesity due to excess calories; Z68.33 Body mass index [BMI] 33.0-33.9, adult; R26.81 Unsteadiness on feet; Z96.643 Presence of artificial hip joint, bilateral; Z95.0 Presence of cardiac pacemaker; Z79.82 Long term (current) use of aspirin; Z79.01 Long term (current) use of anticoagulants; Z79.891 Long term (current) use of opiate analgesic; Z79.899 Other long term (current) drug therapy; Z96.611 Presence of right artificial shoulder joint; Z87.828 Personal history of other (healed) physical injury and trauma
CPT/HCPCS: 36415; 71020; 80053; 81001; 81003; 83605; 83690; 83880; 84484; 85025; 85610; 87040; 87077; 87086; 93005; 93308; 94640; 96365; 96375; 99285

== ENCOUNTER 2016-09-18 12:17 | Outpatient (CLI) | payer MEDICARE, OTHER | END 2016-09-18 12:18 | disposition short-term general hospital (02) | LOC: EMS 12:17 | PROVIDERS: ATTEND Surgery | DX: A41.9 Sepsis, unspecified organism (principal) | CPT/HCPCS: A0170; A0425; A0426 ==

== ENCOUNTER 2016-10-03 12:39 | Outpatient (CLI) | payer MEDICARE, OTHER | END 2016-10-03 12:40 | disposition home or self-care (01) | LOC: LAB.F 12:39 | PROVIDERS: ATTEND Internal Medicine Cardiovascular Disease | DX: I48.91 Unspecified atrial fibrillation (principal); Z95.4 Presence of other heart-valve replacement | CPT/HCPCS: 85610 ==

== ENCOUNTER 2016-10-10 14:53 | Outpatient (CLI) | payer MEDICARE, OTHER | END 2016-10-10 14:54 | disposition home or self-care (01) | LOC: SC 14:53 | PROVIDERS: ATTEND Nurse Practitioner Family | DX: G47.33 Obstructive sleep apnea (adult) (pediatric) (principal) | CPT/HCPCS: 99214; G0463; 99212 ==

== ENCOUNTER 2016-11-01 10:25 | Outpatient (CLI) | payer MEDICARE, OTHER | END 2016-11-01 10:26 | disposition home or self-care (01) | LOC: LAB.F 10:25 | PROVIDERS: ATTEND Internal Medicine Cardiovascular Disease | DX: I48.91 Unspecified atrial fibrillation (principal); Z95.4 Presence of other heart-valve replacement | CPT/HCPCS: 85610 ==

== ENCOUNTER 2016-11-07 18:54 | Outpatient (CLI) | payer MEDICARE, OTHER | END 2016-11-07 18:55 | disposition home or self-care (01) | LOC: SC 18:54 | PROVIDERS: ATTEND Internal Medicine Pulmonary Disease | DX: G47.33 Obstructive sleep apnea (adult) (pediatric) (principal); G47.61 Periodic limb movement disorder | CPT/HCPCS: 95810 ==

== ENCOUNTER 2016-11-30 10:06 | Outpatient (CLI) | payer MEDICARE, OTHER | END 2016-11-30 10:07 | disposition home or self-care (01) | LOC: LAB.F 10:06 | PROVIDERS: ATTEND Internal Medicine Cardiovascular Disease | DX: I48.91 Unspecified atrial fibrillation (principal); Z95.4 Presence of other heart-valve replacement | CPT/HCPCS: 85610 ==

== ENCOUNTER 2016-12-25 13:59 | Outpatient (CLI) | payer MEDICARE, OTHER | END 2016-12-25 14:00 | disposition home or self-care (01) | LOC: SC 13:59 | PROVIDERS: ATTEND Nurse Practitioner Family | DX: G47.33 Obstructive sleep apnea (adult) (pediatric) (principal); G47.61 Periodic limb movement disorder | CPT/HCPCS: 99213; G0463; 99212 ==

== ENCOUNTER 2016-12-26 13:52 | Outpatient (CLI) | payer MEDICARE, OTHER | END 2016-12-26 13:53 | disposition home or self-care (01) | LOC: LAB.F 13:52 | PROVIDERS: ATTEND Internal Medicine Cardiovascular Disease | DX: Z95.4 Presence of other heart-valve replacement (principal); I48.91 Unspecified atrial fibrillation | CPT/HCPCS: 85610 ==

== ENCOUNTER 2017-01-23 12:56 | Outpatient (CLI) | payer MEDICARE, OTHER | END 2017-01-23 12:57 | disposition home or self-care (01) | LOC: LAB.F 12:56 | PROVIDERS: ATTEND Internal Medicine Cardiovascular Disease | DX: I48.91 Unspecified atrial fibrillation (principal); Z95.4 Presence of other heart-valve replacement | CPT/HCPCS: 85610 ==

== ENCOUNTER 2017-02-13 13:19 | Outpatient (CLI) | payer MEDICARE, OTHER | END 2017-02-13 13:20 | disposition home or self-care (01) | LOC: SC 13:19 | PROVIDERS: ATTEND Nurse Practitioner Family | DX: G47.33 Obstructive sleep apnea (adult) (pediatric) (principal) | CPT/HCPCS: 99214; G0463; 99212 ==

== ENCOUNTER 2017-02-20 08:00 | Outpatient (CLI) | payer MEDICARE, OTHER | END 2017-02-20 08:01 | disposition home or self-care (01) | LOC: LAB.F 08:00 | PROVIDERS: ATTEND Internal Medicine Cardiovascular Disease | DX: I48.91 Unspecified atrial fibrillation (principal); Z95.4 Presence of other heart-valve replacement | CPT/HCPCS: 85610 ==

== ENCOUNTER 2017-03-08 15:22 | Outpatient (CLI) | payer MEDICARE, OTHER | END 2017-03-08 15:23 | disposition home or self-care (01) | LOC: LAB.F 15:22 | PROVIDERS: ATTEND Internal Medicine Cardiovascular Disease | DX: I48.91 Unspecified atrial fibrillation (principal); Z95.4 Presence of other heart-valve replacement | CPT/HCPCS: 85610 ==

== ENCOUNTER 2017-03-16 17:04 | Outpatient (CLI) | payer MEDICARE, OTHER | END 2017-03-16 17:05 | disposition critical access hospital (66) | LOC: EMS 17:04 | PROVIDERS: ATTEND Surgery | DX: S01.01XA Laceration without foreign body of scalp, initial encounter (principal); W20.8XXA Other cause of strike by thrown, projected or falling object, initial encounter; Y93.89 Activity, other specified; Y92.009 Unspecified place in unspecified non-institutional (private) residence as the place of occurrence of the external cause | CPT/HCPCS: A0425; A0429 ==

== ENCOUNTER 2017-03-16 17:31 | Emergency (ER) | payer MEDICARE, OTHER ==
[2017-03-16 17:49] LABS: BASOPHILS % (AUTO) 0.5 %; EOSINOPHILS # (AUTO) 0.1 10^3/uL (0.0-0.7); EOSINOPHILS % (AUTO) 0.9 %; HGB - HEMOGLOBIN 12.5 g/dL (14.0-18.0); LYMPHOCYTES # (AUTO) 1.8 10^3/uL (1.5-3.5); MEAN CORPUSCULAR HEMOGLOBIN 29.9 pg (27.0-31.0); MEAN CORPUSCULAR HGB CONC 33.5 g/dL (32.0-36.0); MEAN CORPUSCULAR VOLUME 89.2 fL (80.0-94.0); MEAN PLATELET VOLUME 7.2 fL (7.4-11.4); MONOCYTES # (AUTO) 0.7 10^3/uL (0.0-1.0); MONOCYTES % (AUTO) 8.5 %; NEUTROPHILS # (AUTO) 5.8 10^3/uL (1.5-6.6); NEUTROPHILS % (AUTO) 69.1 %; PLT - PLATELET COUNT 226 10^3/uL (130-450); RED BLOOD COUNT 4.19 10^6/uL (4.70-6.10); WHITE BLOOD COUNT 8.4 x10^3/uL (4.8-10.8)
[2017-03-16 17:56] LABS: PT - PROTHROMBIN TIME 32.8 secs (9.9-12.6)
[2017-03-16 18:00] LABS: ALBUMIN 4.2 g/dL (3.2-5.5); ALBUMIN/GLOBULIN RATIO 1.1 (1.0-2.2); BILIRUBIN,TOTAL 0.6 mg/dL (0.2-1.0); CALCIUM 8.7 mg/dL (8.5-10.3); CREATININE 2.3 mg/dL (0.6-1.2); TOTAL PROTEIN 7.9 g/dL (6.7-8.2)
--- NOTE | 2017-03-16 18:06 | ED Physician Documentation ---
PD HPI HEAD INJURY - Stated complaint Stated Complaint: HEAD INJURY/LAC - Chief complaint Chief Complaint: Trauma Hd/Nk - History obtained from History obtained from: Patient, EMS - History of Present Illness Mechanism of head injury: Laceration Where head injury occurred: Home Timing - onset: How many hours ago (3) Pain level max: 5 Pain level now: 2 Location of injury: Top Quality of pain: Aching, Dull - Additional information Additional information: Patient is a 76-year-old male who takes warfarin for a mitral valve replacement , a jig on his bands broke loose and fell and struck him on the head causing a laceration from the sheet metal edge. Also caused a laceration to the left fifth digit. No loss of consciousness. No vomiting. No neck or back pain. td utd Review of Systems Ten Systems: 10 systems reviewed and negative Constitutional: denies: Fever, Chills Ears: denies: Ear pain Nose: denies: Rhinorrhea / runny nose, Congestion Cardiac: denies: Chest pain / pressure Respiratory: denies: Cough GI: denies: Vomiting Skin: denies: Rash Musculoskeletal: denies: Neck pain, Back pain Neurologic: denies: Focal weakness, Numbness, Confused, Altered mental status, LOC PD PAST MEDICAL HISTORY - Past Medical History Cardiovascular: Congestive heart failure, Hypertension, High cholesterol, Coronary artery disease, Atrial fibrillation Respiratory: None Neuro: None Endocrine/Autoimmune: None GI: GERD, Colon polyps, Diverticulitis : None HEENT: Chronic vision loss, Chronic hearing loss Psych: Depression, Bipolar disorder, Obsessive compulsive disorder Musculoskeletal: Osteoarthritis, Fatigue, Chronic back pain, Other Derm: Eczema, Psoriasis - Past Surgical History Past Surgical History: Yes Ortho: Hip replacement, Shoulder arthroplasty, Amputation Cardiovascular: Valve replacement, Pacemaker, AICD, Cardiac catheterization, Angioplasty, Other HEENT: Cataracts - Present Medications Home Medications: Ambulatory Orders Medication Instructions Recorded Confirmed Allopurinol 150 mg PO QPM 07/27/13 03/16/17 Aspirin Chewable [St Jimbo 81 mg PO DAILY 07/27/13 03/16/17 Aspirin] Diazepam 5 mg PO Q8H PRN 07/27/13 03/16/17 Digoxin 125 mcg PO DAILY 07/27/13 03/16/17 Dutasteride [Avodart] 0.5 mg PO DAILY 07/27/13 03/16/17 Furosemide [Lasix] 40 mg PO DAILY 07/27/13 03/16/17 Levothyroxine [Synthroid] 1.5 tab PO DAILY 07/27/13 03/16/17 Magnesium Chloride [Slo Mag] 64 mg PO BID 07/27/13 03/16/17 Metoprolol Succinate [Toprol Xl] 75 mg PO DAILY 07/27/13 03/16/17 Omeprazole 20 mg PO DAILY 07/27/13 03/16/17 Quetiapine Xr [Seroquel Xr] 300 mg PO DAILY PM 07/27/13 03/16/17 Sertraline HCl 200 mg PO DAILY 07/27/13 03/16/17 Temazepam 15 mg PO QPM PRN 07/27/13 03/16/17 Trospium Chloride [Sanctura] 60 mg PO DAILY MDD at NOON 07/27/13 03/16/17 Warfarin [Coumadin] 5 mg PO SUTUTHSA 07/27/13 03/16/17 Cyanocobalamin/Folic Acid [Vitamin 1 tab PO DAILY 08/12/13 03/16/17 T83-[id number] Acid Tablet] Hydrocodone/Acetaminophen 1 - 2 tab PO Q6H PRN 08/12/13 03/16/17 [Hydrocodone-APAP 10-300] Lisinopril 5 mg PO DAILY 09/18/16 03/16/17 Warfarin [Coumadin] 2.5 mg PO MOWEFR 09/18/16 03/16/17 Cholecalciferol (Vitamin D3) 2,000 unit PO DAILY 09/26/16 03/16/17 [Vitamin D] - Allergies Allergies/Adverse Reactions: Allergies Allergy/AdvReac Type Severity Reaction Status Date / Time hydromorphone HCl * Allergy Severe Hallucinati Verified 03/16/17 17:40 [From Dilaudid] ons codeine Allergy Unknown Verified 03/16/17 17:40 duloxetine HCl * Allergy Anxiety Verified 03/16/17 17:40 [From Cymbalta] gabapentin [From Neurontin] Allergy Anxiety Verified 03/16/17 17:40 oxycodone HCl * Allergy Hallucinati Verified 03/16/17 17:40 [From OxyContin] ons - Social History Does the pt smoke?: No Smoking Status: Never smoker Does the pt drink ETOH?: Yes Does the pt have substance abuse?: No - Immunizations Immunizations are current?: Yes Immunizations: TDAP current <10years - POLST Patient has POLST: No PD ED PE NORMAL - Vitals Vital signs reviewed: Yes - General General: Alert and oriented X 3, No acute distress, Well developed/nourished - HEENT HEENT: PERRL, Ears normal, Moist mucous membranes, Pharynx benign, Dentition benign, Other (2 lacerations on the scalp, one is approximately 5 cm, linear, right parietal area. There is another near the forehead is approximately 1 cm, right angle.) - Neck Neck: Supple, no meningeal sign, No bony TTP - Cardiac Cardiac: RRR - Respiratory Respiratory: No respiratory distress, Clear bilaterally - Abdomen Abdomen: Soft, Non tender, Non distended - Derm Derm: Warm and dry - Extremities Extremities: Other (Left hand, fifth digit there is a 2 cm, linear laceration near the DIP joint, medial aspect. Neurovascularly intact) - Neuro Neuro: Alert and oriented X 3 - Psych Psych: Normal mood Results - Vitals Vitals: Vital Signs - 24 hr 03/16/17 03/16/17 17:33 19:53 Temperature 37.0 C Heart Rate 75 76 Respiratory 17 16 Rate Blood Pressure 108/76 121/80 O2 Saturation 100 98 Oxygen O2 Source Room air - Labs Labs: Laboratory Tests 03/16/17 03/16/17 03/16/17 17:40 17:40 17:40 WBC 8.4 RBC 4.19 L Hgb 12.5 L Hct 37.4 L MCV 89.2 MCH 29.9 MCHC 33.5 RDW 16.0 H Plt Count 226 MPV 7.2 L Neut # 5.8 Lymph # 1.8 [place] # 0.7 Eos # 0.1 Baso # 0.0 Absolute Nucleated RBC 0.00 Nucleated RBC % 0.0 PT 32.8 H INR 3.0 H Sodium 133 L Potassium 4.4 Chloride 100 L Carbon Dioxide 22 Anion Gap 11.0 BUN 67 H Creatinine 2.3 H Estimated GFR (MDRD) 28 L Glucose 112 H Calcium 8.7 Total Bilirubin 0.6 AST 27 ALT 20 Alkaline Phosphatase 63 Total Protein 7.9 Albumin 4.2 Globulin 3.7 Albumin/Globulin Ratio 1.1 Lipase 26 - Rads (name of study) head CT Radiology: Prelim report reviewed, EMP read contemporaneously, See rad report ( No acute intracranial abnormality) Procedures - Laceration (location) scalp Length in cm: 5 Wound type: Linear, Into subcut fat, Clean Neurovascular status: Sensory intact, Motor intact, Vascular intact Wound Preparation: Irrigated copiously NS Skin layer closure: [place] Other: Patient tolerated well, No complications, Neurovascular intact, Dressing applied, Tetanus UTD Complexity: Simple scalp 2 Length in cm: 1 Wound type: Linear (right angle), Superficial Neurovascular status: Sensory intact, Motor intact, Vascular intact Wound Preparation: Irrigated copiously NS Skin layer closure: Rosi (1) Other: Patient tolerated well, No complications, Neurovascular intact, Tetanus UTD Complexity: Simple L 5th digit Length in cm: 2 Wound type: Linear, Into subcut fat, Clean Neurovascular status: Sensory intact, Motor intact, Vascular intact Tendon involvement: Tendon intact. No: Tendon Injury Anesthesia: Lidocaine 2% (digital block) Wound Preparation: Irrigated copiously NS, Wound explored, To the base. No: FB identified, FB removed Skin layer closure: Nylon, Interrupted, Size #-0 - enter number (4) Other: Patient tolerated well, No complications, Neurovascular intact, Tetanus UTD Complexity: Simple PD MEDICAL DECISION MAKING - ED course Complexity details: reviewed results, re-evaluated patient, considered differential, d/w patient, d/w family ED course: Patient is a 76-year-old male who presents to the emergency department after a object fell on his head, causing a laceration to the scalp, both lacerations on the scalp were repaired with rosi. He also has laceration to left fifth digit that was repaired with sutures. Tetanus is up-to-date. No evidence of intracranial hemorrhage or skull fracture on head CT. Head injury instructions given at bedside. Patient and family counseled regarding signs and symptoms for which I believe and urgent re-evaluation would be necessary. Patient with good understanding of and agreement to plan and is comfortable going home at this time This document was made in part using voice recognition software. While efforts are made to proofread this document, sound alike and grammatical errors may occur. Departure - Departure Disposition: 01 Home, Self Care Clinical Impression: Anticoagulated on Coumadin Scalp laceration Qualifiers: Encounter type: initial encounter Qualified Code(s): S01.01XA - Laceration without foreign body of scalp, initial encounter Finger laceration Qualifiers: Encounter type: initial encounter Finger: little finger Damage to nail status: without damage Foreign body presence: without foreign body Laterality: left Qualified Code(s): S61.217A - Laceration without foreign body of left little finger without damage to nail, initial encounter Head injury Qualifiers: Encounter type: initial encounter Qualified Code(s): S09.90XA - Unspecified injury of head, initial encounter Condition: Good Instructions: ED Head Injury Closed, ED Laceration Hand, ED Laceration Scalp Stitch Or Stap Follow-Up: Carmen Kang MD [Primary Care Provider] - (in 10-14 days for suture removal ) Comments: Follow-up with your doctor in 10-14 days for suture and staple removal. Return if you notice redness swelling or drainage from the wound. Discharge Date/Time: 03/16/17 19:50
--- NOTE | 2017-03-16 18:20 | CT Preliminary Report ---
Exam: CT HEAD W/O IMPRESSION: Generalized age-related cortical atrophic changes without evidence of acute intracranial abnormality. [facility] SITE ID: [id number]
--- NOTE | 2017-03-16 18:42 | CT Report ---
EXAM: CT HEAD EXAM DATE: 03/16/2017 06:00 PM. CLINICAL HISTORY: Hit in head with 20 pound object. Patient on warfarin. COMPARISON: 07/28/[address] TECHNIQUE: Multiaxial CT images were obtained from the foramen magnum to the vertex. Reformats: Coron al. IV contrast: None. In accordance with CT protocol optimization, one or more of the following dose reduction techniques w ere utilized for this exam: automated exposure control, adjustment of mA and/or KV based on patient s ize, or use of iterative reconstructive technique. FINDINGS: Parenchyma: No intraparenchymal hemorrhage. No evidence of mass, midline shift, or CT findings of acu te infarction. Banuelos-white differentiation is distinct. Diffuse chronic microangiopathic white matter changes are evident. Extraaxial Spaces: Normal for age. No subdural or epidural collections identified. Ventricles: The ventricles and cortical sulci are enlarged, consistent with age-related tissue loss. Sinuses and orbits: Imaged paranasal sinuses, orbits, and mastoids show no significant abnormality. Bones: No evidence of fracture or calvarial defect. Other: None. IMPRESSION: Generalized age-related cortical atrophic changes without evidence of acute intracranial abnormality. [facility] Referring Provider Line: [phone] SITE ID: [id number]
[2017-03-16] MEDS ORDERED: LIDOCAINE 2% 10 ML MDV SUBQ STA (19:24)
[2017-03-16] MEDS ORDERED: BACITRACIN OINT TOP STA (19:39)
[2017-03-16 19:54] VITALS: BP 121/80
== END 2017-03-16 19:50 | disposition home or self-care (01) ==
LOC: EDUNIT# → ED 17:31 → SUPCPDRO 17:31 → ED 19:50
DX: S01.01XA Laceration without foreign body of scalp, initial encounter (principal); S61.211A Laceration without foreign body of left index finger without damage to nail, initial encounter; W22.8XXA Striking against or struck by other objects, initial encounter; Y92.009 Unspecified place in unspecified non-institutional (private) residence as the place of occurrence of the external cause; I11.0 Hypertensive heart disease with heart failure; I50.9 Heart failure, unspecified; I48.91 Unspecified atrial fibrillation; I25.10 Atherosclerotic heart disease of native coronary artery without angina pectoris; E78.00 Pure hypercholesterolemia, unspecified; Z95.810 Presence of automatic (implantable) cardiac defibrillator; Z95.2 Presence of prosthetic heart valve; Z79.01 Long term (current) use of anticoagulants; Z79.82 Long term (current) use of aspirin
CPT/HCPCS: 12004; 36415; 70450; 80053; 83690; 85025; 85610; 99283; A9270

== ENCOUNTER 2017-03-22 17:10 | Emergency (ER) | payer MEDICARE, OTHER ==
[2017-03-22 17:28] VITALS: BP 122/53
--- NOTE | 2017-03-22 17:37 | ED Physician Documentation ---
History of Present Illness - Stated complaint Stated Complaint: MALE - Chief complaint Chief Complaint: General - History obtained from History obtained from: Patient - History of Present Illness Timing: Other (He has a history of prostatic hypertrophy and for the last couple of days feels like he has to pee all the time but not much is coming out. There is no fever or flank pain.) Review of Systems Constitutional: denies: Fever, Chills GI: denies: Abdominal Pain, Nausea, Vomiting, Diarrhea PD PAST MEDICAL HISTORY - Past Medical History Past Medical History: Yes Cardiovascular: Congestive heart failure, Hypertension, High cholesterol, Coronary artery disease, Atrial fibrillation Respiratory: None Neuro: None Endocrine/Autoimmune: None GI: GERD, Colon polyps, Diverticulitis : None HEENT: Chronic vision loss, Chronic hearing loss Psych: Depression, Bipolar disorder, Obsessive compulsive disorder Musculoskeletal: Osteoarthritis, Fatigue, Chronic back pain, Other Derm: Eczema, Psoriasis - Past Surgical History Past Surgical History: Yes Ortho: Hip replacement, Shoulder arthroplasty, Amputation Cardiovascular: Valve replacement, Pacemaker, AICD, Cardiac catheterization, Angioplasty, Other HEENT: Cataracts - Present Medications Home Medications: Ambulatory Orders Medication Instructions Recorded Confirmed Allopurinol 150 mg PO QPM 07/27/13 03/22/17 Aspirin Chewable [[place] 81 mg PO DAILY 07/27/13 03/22/17 Aspirin] Diazepam 5 mg PO Q8H PRN 07/27/13 03/22/17 Digoxin 125 mcg PO DAILY 07/27/13 03/22/17 Dutasteride [Avodart] 0.5 mg PO DAILY 07/27/13 03/22/17 Furosemide [Lasix] 40 mg PO DAILY 07/27/13 03/22/17 Levothyroxine [Synthroid] 1.5 tab PO DAILY 07/27/13 03/22/17 Magnesium Chloride [Slo Mag] 64 mg PO BID 07/27/13 03/22/17 Metoprolol Succinate [Toprol Xl] 75 mg PO DAILY 07/27/13 03/22/17 Omeprazole 20 mg PO DAILY 07/27/13 03/22/17 Quetiapine Xr [Seroquel Xr] 300 mg PO DAILY PM 07/27/13 03/22/17 Sertraline HCl 200 mg PO DAILY 07/27/13 03/22/17 Temazepam 15 mg PO QPM PRN 07/27/13 03/22/17 Trospium Chloride [Sanctura] 60 mg PO DAILY MDD at NOON 07/27/13 03/22/17 Warfarin [Coumadin] 5 mg PO SUTUTHSA 07/27/13 03/22/17 Cyanocobalamin/Folic Acid [Vitamin 1 tab PO DAILY 08/12/13 03/22/17 C56-[id number] Acid Tablet] Hydrocodone/Acetaminophen 1 - 2 tab PO Q6H PRN 08/12/13 03/22/17 [Hydrocodone-APAP 10-300] Lisinopril 5 mg PO DAILY 09/18/16 03/22/17 Warfarin [Coumadin] 2.5 mg PO MOWEFR 09/18/16 03/22/17 Cholecalciferol (Vitamin D3) 2,000 unit PO DAILY 09/26/16 03/22/17 [Vitamin D] Ciprofloxacin HCl [Cipro] 500 mg PO BID #14 tablet 03/22/17 Phenazopyridine HCl [Pyridium] 200 mg PO TID #6 tablet 03/22/17 - Allergies Allergies/Adverse Reactions: Allergies Allergy/AdvReac Type Severity Reaction Status Date / Time hydromorphone HCl * Allergy Severe Hallucinati Verified 03/16/17 17:40 [From Dilaudid] ons codeine Allergy Unknown Verified 03/16/17 17:40 duloxetine HCl * Allergy Anxiety Verified 03/16/17 17:40 [From Cymbalta] gabapentin [From Neurontin] Allergy Anxiety Verified 03/16/17 17:40 oxycodone HCl * Allergy Hallucinati Verified 03/16/17 17:40 [From OxyContin] ons - Social History Does the pt smoke?: No Smoking Status: Never smoker Does the pt drink ETOH?: Yes Does the pt have substance abuse?: No - Immunizations Immunizations are current?: Yes Immunizations: TDAP current <10years - POLST Patient has POLST: No PD ED PE NORMAL - Vitals Vital signs reviewed: Yes - General General: Alert and oriented X 3, No acute distress - Abdomen Abdomen: Soft, Non tender - Male Male : Other (Bladder scan with only 60 mL in the bladder.) - Neuro Neuro: Alert and oriented X 3, Normal speech - Psych Psych: Normal mood, Normal affect Results - Vitals Vitals: Vital Signs - 24 hr 03/22/17 17:25 Temperature 37.3 C Heart Rate 105 H Respiratory 22 Rate Blood Pressure 122/53 L O2 Saturation 95 Oxygen O2 Source Room air - Labs Labs: Laboratory Tests 03/22/17 03/22/17 17:45 17:51 Whole Blood INR 3.7 H Urine Color YELLOW Urine Clarity CLEAR Urine pH 6.0 Ur Specific [place] <=1.005 Urine Protein NEGATIVE Urine Glucose (UA) NEGATIVE Urine Ketones NEGATIVE Urine Occult Blood SMALL H Urine Nitrite NEGATIVE Urine Bilirubin NEGATIVE Urine Urobilinogen 0.2 (NORMAL) Ur Leukocyte Esterase TRACE H Urine RBC 0-5 Urine WBC 4-5 Ur Squamous Epith Cells RARE Squamous Urine Bacteria Moderate H Ur Microscopic Review INDICATED Urine Culture Comments INDICATED Departure - Departure Disposition: Home, Self Care Clinical Impression: Cystitis Condition: Good Record reviewed to determine appropriate education?: Yes Instructions: ED UTI Cystitis Male Prescriptions: Ciprofloxacin HCl [Cipro] 500 mg PO BID #14 tablet Phenazopyridine HCl [Pyridium] 200 mg PO TID #6 tablet Comments: Your INR tonight is high at 3.7. Skip tonight's dose and take only half dose tomorrow, have your INR checked on Sunday. We will culture your urine, the results should be done in 48-72 hours. If an antibiotic change is necessary we will call you. Return if worse in the meantime, especially if you develop increasing flank pain, fevers, or cannot keep down the medication.
[2017-03-22 18:03] LABS: BILIRUBIN,URINE NEGATIVE (NEGATIVE); GLUCOSE, URINE (UA) NEGATIVE (NEGATIVE); KETONES,URINE (UA) NEGATIVE (NEGATIVE); LEUKOCYTE ESTERASE, URINE TRACE (NEGATIVE); NITRITE,URINE NEGATIVE (NEGATIVE); OCCULT BLOOD,URINE SMALL (NEGATIVE); PROTEIN,URINE NEGATIVE (NEGATIVE); UROBILINOGEN,URINE 0.2 (NORMAL) E.U./dL (NORMAL)
[2017-03-22 18:07] LABS: CLARITY,URINE CLEAR (CLEAR)
[2017-03-22 18:08] LABS: RBC,URINE 0-5 /HPF (0-5)
[2017-03-22 18:09] LABS: BACTERIA,URINE Moderate /HPF (None Seen); SQUAMOUS EPITHELIAL CELL,UR RARE Squamous (<= Few)
[2017-03-22] MEDS ORDERED: CIPROFLOXACIN 250 MG TABLET PO STA (18:15)
[2017-03-22] MEDS ORDERED: PHENAZOPYRIDINE 100 MG TABLET PO STA (18:15)
== END 2017-03-22 18:29 | disposition home or self-care (01) ==
LOC: ED 17:10
DX: N30.90 Cystitis, unspecified without hematuria (principal); N40.1 Benign prostatic hyperplasia with lower urinary tract symptoms; R39.15 Urgency of urination; I10 Essential (primary) hypertension; Z95.0 Presence of cardiac pacemaker; Z79.01 Long term (current) use of anticoagulants; Z79.82 Long term (current) use of aspirin
CPT/HCPCS: 81001; 85610; 87086; 87181; 99283; A9270; 81003

== ENCOUNTER 2017-03-26 13:11 | Outpatient (CLI) | payer MEDICARE | END 2017-03-26 13:12 | disposition home or self-care (01) | LOC: LAB 13:11 | PROVIDERS: ATTEND Internal Medicine Cardiovascular Disease | DX: I48.91 Unspecified atrial fibrillation (principal); Z95.4 Presence of other heart-valve replacement | CPT/HCPCS: 85610 ==

== ENCOUNTER 2017-04-04 13:15 | Outpatient (CLI) | payer MEDICARE, OTHER | END 2017-04-04 13:16 | disposition home or self-care (01) | LOC: SC 13:15 | PROVIDERS: ATTEND Nurse Practitioner Family | DX: G47.33 Obstructive sleep apnea (adult) (pediatric) (principal) | CPT/HCPCS: 99214; G0463; 99212 ==

== ENCOUNTER 2017-04-10 10:23 | Outpatient (CLI) | payer MEDICARE | END 2017-04-10 10:24 | disposition home or self-care (01) | LOC: LAB.F 10:23 | PROVIDERS: ATTEND Internal Medicine Cardiovascular Disease | DX: I48.91 Unspecified atrial fibrillation (principal); Z95.4 Presence of other heart-valve replacement | CPT/HCPCS: 85610 ==

== ENCOUNTER 2017-05-07 15:04 | Outpatient (CLI) | payer MEDICARE, OTHER ==
--- NOTE | 2017-05-07 16:30 | XRAY Report ---
THREE VIEW LEFT FOOT: 05/07/2017 CLINICAL INDICATION: Pain. FINDINGS: AP, lateral, oblique views of the left foot demonstrate mild osteoarthritis of the first metatarsophalangeal joint and interphalangeal joints. There is no evidence of acute fracture or dislocation. Vascular calcifications are present. Plantar calcaneal spurring is noted. IMPRESSION: MILD OSTEOARTHRITIC CHANGES. NO EVIDENCE OF ACUTE FRACTURE. TD: 05/07/2017 16:28
== END 2017-05-07 15:05 | disposition home or self-care (01) ==
LOC: DI 15:04
PROVIDERS: ATTEND Podiatrist
DX: M19.072 Primary osteoarthritis, left ankle and foot (principal)

== ENCOUNTER 2017-05-08 14:18 | Outpatient (CLI) | payer MEDICARE, OTHER | END 2017-05-08 14:19 | disposition home or self-care (01) | LOC: LAB.F 14:18 | PROVIDERS: ATTEND Internal Medicine Cardiovascular Disease | DX: I48.91 Unspecified atrial fibrillation (principal); Z95.4 Presence of other heart-valve replacement | CPT/HCPCS: 85610 ==

== ENCOUNTER 2017-05-29 14:51 | Outpatient (CLI) | payer MEDICARE, OTHER | END 2017-05-29 14:52 | disposition home or self-care (01) | LOC: SC 14:51 | PROVIDERS: ATTEND Nurse Practitioner Family | DX: G47.33 Obstructive sleep apnea (adult) (pediatric) (principal) | CPT/HCPCS: 99214; G0463; 99212 ==

== ENCOUNTER 2017-06-07 13:37 | Outpatient (CLI) | payer MEDICARE, OTHER | END 2017-06-07 13:38 | disposition home or self-care (01) | LOC: LAB.F 13:37 | PROVIDERS: ATTEND Internal Medicine Cardiovascular Disease | DX: I48.91 Unspecified atrial fibrillation (principal); Z95.4 Presence of other heart-valve replacement | CPT/HCPCS: 85610 ==

== ENCOUNTER 2017-06-21 10:08 | Outpatient (CLI) | payer MEDICARE, OTHER | END 2017-06-21 10:09 | disposition home or self-care (01) | LOC: LAB.F 10:08 | PROVIDERS: ATTEND Internal Medicine Cardiovascular Disease | DX: I48.91 Unspecified atrial fibrillation (principal); Z95.4 Presence of other heart-valve replacement | CPT/HCPCS: 85610 ==

== ENCOUNTER 2017-06-28 09:40 | Outpatient (CLI) | payer MEDICARE, OTHER | END 2017-06-28 09:41 | disposition home or self-care (01) | LOC: LAB.F 09:40 | PROVIDERS: ATTEND Internal Medicine Cardiovascular Disease | DX: I48.91 Unspecified atrial fibrillation (principal); Z95.4 Presence of other heart-valve replacement | CPT/HCPCS: 85610 ==

== ENCOUNTER 2017-07-12 11:24 | Outpatient (CLI) | payer MEDICARE, OTHER | END 2017-07-12 11:25 | disposition home or self-care (01) | LOC: LAB.F 11:24 | PROVIDERS: ATTEND Internal Medicine Cardiovascular Disease | DX: Z95.4 Presence of other heart-valve replacement (principal); I48.91 Unspecified atrial fibrillation | CPT/HCPCS: 85610 ==

== ENCOUNTER 2017-08-03 13:18 | Outpatient (CLI) | payer MEDICARE, OTHER | END 2017-08-03 13:19 | disposition home or self-care (01) | LOC: LAB.F 13:18 | PROVIDERS: ATTEND Internal Medicine Cardiovascular Disease | DX: I48.91 Unspecified atrial fibrillation (principal); Z95.4 Presence of other heart-valve replacement | CPT/HCPCS: 85610 ==

== ENCOUNTER 2017-08-03 15:45 | Emergency (ER) | payer MEDICARE, OTHER ==
[2017-08-03 16:25] LABS: BASOPHILS % (AUTO) 0.3 %; EOSINOPHILS # (AUTO) 0.1 10^3/uL (0.0-0.7); EOSINOPHILS % (AUTO) 1.9 %; HGB - HEMOGLOBIN 12.2 g/dL (14.0-18.0); LYMPHOCYTES # (AUTO) 1.3 10^3/uL (1.5-3.5); LYMPHOCYTES % (AUTO) 26.5 %; MEAN CORPUSCULAR HEMOGLOBIN 30.4 pg (27.0-31.0); MEAN CORPUSCULAR HGB CONC 33.7 g/dL (32.0-36.0); MEAN CORPUSCULAR VOLUME 90.4 fL (80.0-94.0); MEAN PLATELET VOLUME 7.9 fL (7.4-11.4); MONOCYTES # (AUTO) 0.4 10^3/uL (0.0-1.0); MONOCYTES % (AUTO) 8.2 %; NEUTROPHILS # (AUTO) 3.1 10^3/uL (1.5-6.6); NEUTROPHILS % (AUTO) 63.1 %; PLT - PLATELET COUNT 148 10^3/uL (130-450); RED BLOOD COUNT 4.01 10^6/uL (4.70-6.10); RED CELL DISTRIBUTION WIDTH 15.2 % (12.0-15.0); WHITE BLOOD COUNT 4.8 x10^3/uL (4.8-10.8)
[2017-08-03] MEDS ORDERED: BACITRACIN OINT TOP STA (16:30)
[2017-08-03 16:37] LABS: ALBUMIN/GLOBULIN RATIO 1.1 (1.0-2.2); BILIRUBIN,TOTAL 0.7 mg/dL (0.2-1.0); CALCIUM 8.9 mg/dL (8.5-10.3); CREATININE 1.7 mg/dL (0.6-1.2); TOTAL PROTEIN 7.6 g/dL (6.7-8.2)
--- NOTE | 2017-08-03 16:44 | XRAY Report ---
EXAM: CHEST RADIOGRAPHY EXAM DATE: 08/03/2017 04:14 PM. CLINICAL HISTORY: Cough and fever. History of chest wall injury. Piece of wood to right upper chest. COMPARISON: 09/18/2016. TECHNIQUE: 2 views. FINDINGS: Lungs/Pleura: No focal opacities evident. No pleural effusion. No pneumothorax. Normal volumes. Mediastinum: Prior cardiac valve replacement. Normal heart size. Tortuous mildly calcified aorta. Sta ble single lead left pacemaker. Other: No fracture identified. Bilateral shoulder arthroplasties noted. IMPRESSION: No acute lung disease or other interval change. [facility] Referring Provider Line: [phone] SITE ID: [id number]
--- NOTE | 2017-08-03 16:46 | ED Physician Documentation ---
History of Present Illness - Stated complaint Stated Complaint: FEVER/CHEST INJURY - Chief complaint Chief Complaint: General - History obtained from History obtained from: Patient, Family - History of Present Illness Timing: Yesterday Pain level max: 7 Pain level now: 4 Improved by: rest Worsened by: movement - Additonal information Additional information: Patient is a 76-year-old male who presents to the emergency department after having a temperature of 99.4 at home today. He is concerned that he may develop sepsis as he has had sepsis at least 3 times in the past and need to be hospitalized several times. Does have an artificial heart valve. He also states that he was struck in the chest by a piece of wood that kicked back from a table saw yesterday. Denies any difficulty breathing. Denies any urinary symptoms. No abdominal pain. No vomiting. No diarrhea. Review of Systems Ten Systems: 10 systems reviewed and negative Constitutional: denies: Chills, Myalgias Ears: denies: Ear pain Nose: denies: Rhinorrhea / runny nose, Congestion Throat: denies: Sore throat Cardiac: denies: Chest pain / pressure Respiratory: denies: Dyspnea, Cough, Hemoptysis, Wheezing GI: denies: Abdominal Pain, Nausea, Vomiting, Diarrhea : denies: Dysuria Skin: denies: Rash Musculoskeletal: denies: Neck pain, Back pain Neurologic: denies: Headache PD PAST MEDICAL HISTORY - Past Medical History Cardiovascular: Congestive heart failure, Hypertension, High cholesterol, Coronary artery disease, Atrial fibrillation Respiratory: None Endocrine/Autoimmune: None GI: GERD, Colon polyps, Diverticulitis : None HEENT: Chronic vision loss, Chronic hearing loss Psych: Depression, Bipolar disorder, Obsessive compulsive disorder Musculoskeletal: Osteoarthritis, Fatigue, Chronic back pain, Other Derm: Eczema, Psoriasis - Past Surgical History Past Surgical History: Yes Ortho: Hip replacement, Shoulder arthroplasty, Amputation Cardiovascular: Valve replacement, Pacemaker, AICD, Cardiac catheterization, Angioplasty, Other HEENT: Cataracts - Present Medications Home Medications: Ambulatory Orders Medication Instructions Recorded Confirmed Allopurinol 150 mg PO QPM 07/27/13 03/22/17 Aspirin Chewable [St [place]bo 81 mg PO DAILY 07/27/13 03/22/17 Aspirin] Diazepam 5 mg PO Q8H PRN 07/27/13 03/22/17 Digoxin 125 mcg PO DAILY 07/27/13 03/22/17 Dutasteride [Avodart] 0.5 mg PO DAILY 07/27/13 03/22/17 Furosemide [Lasix] 40 mg PO DAILY 07/27/13 03/22/17 Levothyroxine [Synthroid] 1.5 tab PO DAILY 07/27/13 03/22/17 Magnesium Chloride [Slo Mag] 64 mg PO BID 07/27/13 03/22/17 Metoprolol Succinate [Toprol Xl] 75 mg PO DAILY 07/27/13 03/22/17 Omeprazole 20 mg PO DAILY 07/27/13 03/22/17 Quetiapine Xr [Seroquel Xr] 300 mg PO DAILY PM 07/27/13 03/22/17 Sertraline HCl 200 mg PO DAILY 07/27/13 03/22/17 Temazepam 15 mg PO QPM PRN 07/27/13 03/22/17 Trospium Chloride [Sanctura] 60 mg PO DAILY MDD at NOON 07/27/13 03/22/17 Warfarin [Coumadin] 5 mg PO SUTUTHSA 07/27/13 03/22/17 Cyanocobalamin/Folic Acid [Vitamin 1 tab PO DAILY 08/12/13 03/22/17 H91-Qhnum Acid Tablet] Lisinopril 5 mg PO DAILY 09/18/16 03/22/17 Warfarin [Coumadin] 2.5 mg PO MOWEFR 09/18/16 03/22/17 Cholecalciferol (Vitamin D3) 2,000 unit PO DAILY 09/26/16 03/22/17 [Vitamin D] Doxycycline Hyclate 100 mg PO BID #14 tablet 08/03/17 - Allergies Allergies/Adverse Reactions: Allergies Allergy/AdvReac Type Severity Reaction Status Date / Time hydromorphone HCl * Allergy Severe Hallucinati Verified 08/03/17 15:54 [From Dilaudid] ons codeine Allergy Unknown Verified 08/03/17 15:54 duloxetine HCl * Allergy Anxiety Verified 08/03/17 15:54 [From Cymbalta] gabapentin [From Neurontin] Allergy Anxiety Verified 08/03/17 15:54 oxycodone HCl * Allergy Hallucinati Verified 08/03/17 15:54 [From OxyContin] ons - Social History Does the pt smoke?: No Smoking Status: Never smoker Does the pt drink ETOH?: Yes Does the pt have substance abuse?: No - Immunizations Immunizations are current?: Yes Immunizations: TDAP current <10years - POLST Patient has POLST: No PD ED PE NORMAL - Vitals Vital signs reviewed: Yes - General General: Alert and oriented X 3, No acute distress - HEENT HEENT: PERRL, Ears normal, Moist mucous membranes, Pharynx benign - Neck Neck: Supple, no meningeal sign, No bony TTP - Cardiac Cardiac: RRR, Strong equal pulses - Respiratory Respiratory: No respiratory distress, Clear bilaterally - Abdomen Abdomen: Soft, Non tender, Non distended - Back Back: No spinal TTP - Derm Derm: Warm and dry, Other (TTP over the R anterior chest wall, ecchymosis 8x8cm area, abrasion 3x3cm area. no crepitus. ) - Extremities Extremities: No edema, No calf tenderness / cord - Neuro Neuro: Alert and oriented X 3 - Psych Psych: Normal mood, Normal affect Results - Vitals Vitals: Vital Signs - 24 hr 08/03/17 08/03/17 08/03/17 15:51 17:14 17:49 Temperature 36.2 C L Heart Rate 78 69 Respiratory 18 16 14 Rate Blood Pressure 113/95 H 90/67 116/64 O2 Saturation 92 96 96 Oxygen O2 Source Room air - Labs Labs: Laboratory Tests 08/03/17 08/03/17 08/03/17 16:15 16:15 16:15 WBC 4.8 RBC 4.01 L Hgb 12.2 L Hct 36.2 L MCV 90.4 MCH 30.4 MCHC 33.7 RDW 15.2 H Plt Count 148 MPV 7.9 Neut # (Auto) 3.1 Lymph # (Auto) 1.3 L [place] # (Auto) 0.4 Eos # (Auto) 0.1 Baso # (Auto) 0.0 Absolute Nucleated RBC 0.00 Nucleated RBC % 0.0 PT INR Sodium 133 L Potassium 4.6 Chloride 98 L Carbon Dioxide 26 Anion Gap 9.0 BUN 44 H Creatinine 1.7 H Estimated GFR (MDRD) 39 L Glucose 134 H Lactic Acid 1.4 Calcium 8.9 Total Bilirubin 0.7 AST 32 ALT 22 Alkaline Phosphatase 49 Total Protein 7.6 Albumin 4.0 Globulin 3.6 Albumin/Globulin Ratio 1.1 Lipase 22 Urine Color Urine Clarity Urine pH Ur Specific [place] Urine Protein Urine Glucose (UA) Urine Ketones Urine Occult Blood Urine Nitrite Urine Bilirubin Urine Urobilinogen Ur Leukocyte Esterase Ur Microscopic Review Urine Culture Comments 08/03/17 08/03/17 16:15 17:20 WBC RBC Hgb Hct MCV MCH MCHC RDW Plt Count MPV Neut # (Auto) Lymph # (Auto) [place] # (Auto) Eos # (Auto) Baso # (Auto) Absolute Nucleated RBC Nucleated RBC % PT 29.6 H INR 2.7 H Sodium Potassium Chloride Carbon Dioxide Anion Gap BUN Creatinine Estimated GFR (MDRD) Glucose Lactic Acid Calcium Total Bilirubin AST ALT Alkaline Phosphatase Total Protein Albumin Globulin Albumin/Globulin Ratio Lipase Urine Color YELLOW Urine Clarity CLEAR Urine pH 5.5 Ur Specific [place] <=1.005 Urine Protein NEGATIVE Urine Glucose (UA) NEGATIVE Urine Ketones NEGATIVE Urine Occult Blood TRACE-LYSE Urine Nitrite NEGATIVE Urine Bilirubin NEGATIVE Urine Urobilinogen 0.2 (NORMAL) Ur Leukocyte Esterase NEGATIVE Ur Microscopic Review NOT INDICATED Urine Culture Comments NOT INDICATED - Rads (name of study) cxr Radiology: Prelim report reviewed, EMP read contemporaneously, See rad report ( No acute lung disease or other interval change. ) PD MEDICAL DECISION MAKING - ED course Complexity details: reviewed results, re-evaluated patient, considered differential, d/w patient, d/w family ED course: Patient is a 76-year-old male who presents to the emergency department after being struck by a board in the right chest wall yesterday. States he had a temperature of 99 at home today and is concerned as he has had sepsis multiple times. Given that he did break the skin and a fairly large area and has a cardiac valve in place. We will place him on antibiotics and close follow-up with his doctor. Normal lactate. Normal white blood cell count. No evidence of sepsis at this time. Patient and family counseled regarding signs and symptoms for which I believe and urgent re-evaluation would be necessary. Patient with good understanding of and agreement to plan and is comfortable going home at this time This document was made in part using voice recognition software. While efforts are made to proofread this document, sound alike and grammatical errors may occur. Patient is very well-appearing, nontoxic Departure - Departure Disposition: Home, Self Care Clinical Impression: Anticoagulated on Coumadin, Abrasion Chest wall contusion Qualifiers: Encounter type: initial encounter Laterality: right Qualified Code(s): S20.211A - Contusion of right front wall of thorax, initial encounter Condition: Good Instructions: ED Abrasion, ED Contusion Chest Wall Follow-Up: Bobo Morse MD [Primary Care Provider] - Within 3 Days Prescriptions: Doxycycline Hyclate 100 mg PO BID #14 tablet Comments: Take all antibiotics until gone. Return if you worsen. Discharge Date/Time: 08/03/17 17:55
[2017-08-03] MEDS ORDERED: DOXYCYCLINE 100 MG TABLET PO STA (16:53)
[2017-08-03 17:14] LABS: INR 2.7 (0.8-1.2); PT - PROTHROMBIN TIME 29.6 secs (9.9-12.6)
[2017-08-03] MEDS ORDERED: SODIUM CHLORIDE 0.9% 500 ML IV ONE (17:20)
[2017-08-03 17:31] LABS: BILIRUBIN,URINE NEGATIVE (NEGATIVE); GLUCOSE, URINE (UA) NEGATIVE (NEGATIVE); KETONES,URINE (UA) NEGATIVE (NEGATIVE); LEUKOCYTE ESTERASE, URINE NEGATIVE (NEGATIVE); NITRITE,URINE NEGATIVE (NEGATIVE); OCCULT BLOOD,URINE TRACE-LYSE (NEGATIVE); PH,URINE 5.5 PH (5.0-7.5); PROTEIN,URINE NEGATIVE (NEGATIVE); UROBILINOGEN,URINE 0.2 (NORMAL) E.U./dL (NORMAL)
[2017-08-03 17:35] LABS: CLARITY,URINE CLEAR (CLEAR)
[2017-08-03 17:50] VITALS: BP 116/64
== END 2017-08-03 17:55 | disposition home or self-care (01) ==
LOC: ED 15:45 → SUPCPDRO 15:45 → ED 17:55
DX: S20.211A Contusion of right front wall of thorax, initial encounter (principal); S20.311A Abrasion of right front wall of thorax, initial encounter; W22.8XXA Striking against or struck by other objects, initial encounter; Y93.89 Activity, other specified; I11.0 Hypertensive heart disease with heart failure; I50.9 Heart failure, unspecified; I25.10 Atherosclerotic heart disease of native coronary artery without angina pectoris; I48.91 Unspecified atrial fibrillation; Z79.01 Long term (current) use of anticoagulants; Z95.2 Presence of prosthetic heart valve
CPT/HCPCS: 36415; 71046; 80053; 81003; 83605; 83690; 85025; 85610; 96360; 99284; A9270; 81001; 87086

== ENCOUNTER 2017-08-09 13:27 | Outpatient (CLI) | payer MEDICARE, OTHER | END 2017-08-09 13:28 | disposition home or self-care (01) | LOC: LAB.F 13:27 | PROVIDERS: ATTEND Internal Medicine Cardiovascular Disease | DX: I48.91 Unspecified atrial fibrillation (principal); Z95.4 Presence of other heart-valve replacement | CPT/HCPCS: 85610 ==

== ENCOUNTER 2017-09-09 10:55 | Outpatient (CLI) | payer MEDICARE, OTHER | END 2017-09-09 10:56 | disposition home or self-care (01) | LOC: DI 10:55 | PROVIDERS: ATTEND Internal Medicine Cardiovascular Disease | DX: I35.0 Nonrheumatic aortic (valve) stenosis (principal); I27.20 Pulmonary hypertension, unspecified; I51.7 Cardiomegaly; Z95.2 Presence of prosthetic heart valve | CPT/HCPCS: 93306 ==

== ENCOUNTER 2017-09-14 10:49 | Outpatient (CLI) | payer MEDICARE, OTHER | END 2017-09-14 10:50 | disposition home or self-care (01) | LOC: LAB.F 10:49 | PROVIDERS: ATTEND Internal Medicine Cardiovascular Disease | DX: I48.91 Unspecified atrial fibrillation (principal); Z95.4 Presence of other heart-valve replacement | CPT/HCPCS: 85610 ==

== ENCOUNTER 2017-09-28 10:18 | Outpatient (CLI) | payer MEDICARE, OTHER | END 2017-09-28 10:19 | disposition home or self-care (01) | LOC: LAB.F 10:18 | PROVIDERS: ATTEND Internal Medicine Cardiovascular Disease | DX: I48.91 Unspecified atrial fibrillation (principal); Z95.4 Presence of other heart-valve replacement | CPT/HCPCS: 85610 ==

== ENCOUNTER 2017-10-05 10:50 | Outpatient (CLI) | payer MEDICARE, OTHER | END 2017-10-05 10:51 | disposition home or self-care (01) | LOC: LAB.F 10:50 | PROVIDERS: ATTEND Internal Medicine Cardiovascular Disease | DX: I48.91 Unspecified atrial fibrillation (principal); Z95.4 Presence of other heart-valve replacement | CPT/HCPCS: 85610 ==

== ENCOUNTER 2017-10-18 13:13 | Outpatient (CLI) | payer MEDICARE, OTHER | END 2017-10-18 13:14 | disposition home or self-care (01) | LOC: LAB.F 13:13 | PROVIDERS: ATTEND Internal Medicine Cardiovascular Disease | DX: I48.91 Unspecified atrial fibrillation (principal); Z95.4 Presence of other heart-valve replacement | CPT/HCPCS: 85610 ==

== ENCOUNTER 2017-10-31 13:14 | Outpatient (CLI) | payer MEDICARE, OTHER | END 2017-10-31 13:15 | disposition home or self-care (01) | LOC: LAB.F 13:14 | PROVIDERS: ATTEND Internal Medicine Cardiovascular Disease | DX: I48.91 Unspecified atrial fibrillation (principal); Z95.4 Presence of other heart-valve replacement | CPT/HCPCS: 85610 ==

== ENCOUNTER 2017-11-06 15:39 | Outpatient (CLI) | payer MEDICARE, OTHER ==
--- NOTE | 2017-11-06 16:18 | CT Report ---
Reason: RIGHT KNEE SWELLING Procedure Date: 11/06/2017 Accession Number: [id number] / [id number] Procedure: CT - Lower Extremity Right W/O CPT Code: FULL RESULT: EXAM: RIGHT KNEE CT WITHOUT CONTRAST EXAM DATE: 11/06/2017 03:55 PM. CLINICAL HISTORY: Right knee swelling. COMPARISON: Prior x-ray, August 2009. TECHNIQUE: Thin-section axial images were acquired of the knee without contrast. Post-processing: Coronal and sagittal reformats. Other: None. In accordance with CT protocol optimization, one or more of the following dose reduction techniques were utilized for this exam: automated exposure control, adjustment of mA and/or KV based on patient size, or use of iterative reconstructive technique. FINDINGS: Bones: No fracture or bone lesion. Joints: There is tricompartmental joint space narrowing and osteophyte formation with a valgus deformity. The findings are consistent with moderate to severe osteoarthritis. There are ossified loose bodies, visible in the prepatellar bursa and medial compartment. There is a large joint effusion. Musculature: Normal. No fatty atrophy. Other: There is a large popliteal cyst. IMPRESSION: 1. Moderate tricompartmental osteoarthritis with a valgus deformity and a large joint effusion. There is an accompanying popliteal cyst. [facility]
== END 2017-11-06 15:40 | disposition home or self-care (01) ==
LOC: DI 15:39
PROVIDERS: ATTEND Nurse Practitioner Family
DX: M17.11 Unilateral primary osteoarthritis, right knee (principal); M21.061 Valgus deformity, not elsewhere classified, right knee; M25.461 Effusion, right knee; M71.21 Synovial cyst of popliteal space [Baker], right knee

== ENCOUNTER 2017-11-27 15:22 | Outpatient (CLI) | payer MEDICARE, OTHER | END 2017-11-27 15:23 | disposition home or self-care (01) | LOC: LAB.F 15:22 | PROVIDERS: ATTEND Internal Medicine Cardiovascular Disease | DX: I48.91 Unspecified atrial fibrillation (principal); Z95.4 Presence of other heart-valve replacement | CPT/HCPCS: 85610 ==

== ENCOUNTER 2017-12-20 10:45 | Outpatient (CLI) | payer MEDICARE, OTHER | END 2017-12-20 10:46 | disposition short-term general hospital (02) | LOC: EMS 10:45 | PROVIDERS: ATTEND Surgery | DX: M25.461 Effusion, right knee (principal); R50.9 Fever, unspecified | CPT/HCPCS: A0170; A0425; A0429 ==

== ENCOUNTER 2018-01-14 10:09 | Outpatient (CLI) | payer MEDICARE, OTHER ==
[2018-01-14 18:13] LABS: INR 3.5 (0.8-1.2); PT - PROTHROMBIN TIME 38.6 secs (9.9-12.6)
== END 2018-01-14 10:10 | disposition home or self-care (01) ==
LOC: LAB.F 10:09
PROVIDERS: ATTEND Internal Medicine Cardiovascular Disease
DX: Z95.2 Presence of prosthetic heart valve (principal); Z51.81 Encounter for therapeutic drug level monitoring; Z79.01 Long term (current) use of anticoagulants
CPT/HCPCS: 36415; 85610

== ENCOUNTER 2018-01-29 09:40 | Outpatient (CLI) | payer MEDICARE, OTHER | END 2018-01-29 09:41 | disposition home or self-care (01) | LOC: LAB.F 09:40 | PROVIDERS: ATTEND Internal Medicine Cardiovascular Disease | DX: I48.91 Unspecified atrial fibrillation (principal); Z95.4 Presence of other heart-valve replacement | CPT/HCPCS: 85610 ==

== ENCOUNTER 2018-02-18 13:14 | Outpatient (CLI) | payer MEDICARE, OTHER | END 2018-02-18 13:15 | disposition home or self-care (01) | LOC: LAB.F 13:14 | PROVIDERS: ATTEND Internal Medicine Cardiovascular Disease | DX: I48.91 Unspecified atrial fibrillation (principal); Z95.4 Presence of other heart-valve replacement | CPT/HCPCS: 85610 ==

== ENCOUNTER 2018-02-27 12:15 | Outpatient (CLI) | payer MEDICARE, OTHER | END 2018-02-27 23:59 | disposition home or self-care (01) | LOC: LAB.F 12:15 | PROVIDERS: ATTEND Internal Medicine Cardiovascular Disease | DX: I48.91 Unspecified atrial fibrillation (principal); Z95.4 Presence of other heart-valve replacement | CPT/HCPCS: 85610 ==

== ENCOUNTER 2018-03-20 13:56 | Outpatient (CLI) | payer MEDICARE, OTHER | END 2018-03-20 13:57 | disposition home or self-care (01) | LOC: LAB.F 13:56 | PROVIDERS: ATTEND Internal Medicine Cardiovascular Disease | DX: I48.91 Unspecified atrial fibrillation (principal); Z95.4 Presence of other heart-valve replacement | CPT/HCPCS: 85610 ==

== ENCOUNTER 2018-03-29 13:01 | Outpatient (CLI) | payer MEDICARE, OTHER | END 2018-03-29 13:02 | disposition home or self-care (01) | LOC: LAB.F 13:01 | PROVIDERS: ATTEND Internal Medicine Cardiovascular Disease | DX: I48.91 Unspecified atrial fibrillation (principal); Z95.4 Presence of other heart-valve replacement | CPT/HCPCS: 85610 ==

== ENCOUNTER 2018-04-05 11:04 | Outpatient (CLI) | payer MEDICARE, OTHER | END 2018-04-05 11:05 | disposition home or self-care (01) | LOC: LAB.F 11:04 | PROVIDERS: ATTEND Internal Medicine Cardiovascular Disease | DX: I48.91 Unspecified atrial fibrillation (principal); Z95.4 Presence of other heart-valve replacement | CPT/HCPCS: 85610 ==

== ENCOUNTER 2018-04-19 11:36 | Outpatient (CLI) | payer MEDICARE, OTHER | END 2018-04-19 11:37 | disposition home or self-care (01) | LOC: LAB.F 11:36 | PROVIDERS: ATTEND Internal Medicine Cardiovascular Disease | DX: I48.91 Unspecified atrial fibrillation (principal); Z95.4 Presence of other heart-valve replacement | CPT/HCPCS: 85610 ==

== ENCOUNTER 2018-04-29 11:18 | Outpatient (CLI) | payer MEDICARE, OTHER | END 2018-04-29 11:19 | disposition home or self-care (01) | LOC: LAB.F 11:18 | PROVIDERS: ATTEND Internal Medicine Cardiovascular Disease | DX: I48.91 Unspecified atrial fibrillation (principal); Z95.4 Presence of other heart-valve replacement | CPT/HCPCS: 85610 ==

== ENCOUNTER 2018-05-22 10:37 | Outpatient (CLI) | payer MEDICARE, OTHER | END 2018-05-22 10:38 | disposition home or self-care (01) | LOC: LAB.F 10:37 | PROVIDERS: ATTEND Internal Medicine Cardiovascular Disease | DX: I48.91 Unspecified atrial fibrillation (principal); Z95.4 Presence of other heart-valve replacement | CPT/HCPCS: 85610 ==

== ENCOUNTER 2018-05-29 14:37 | Outpatient (CLI) | payer MEDICARE, OTHER | END 2018-05-29 14:38 | disposition home or self-care (01) | LOC: SC 14:37 | PROVIDERS: ATTEND Nurse Practitioner Family | DX: G47.33 Obstructive sleep apnea (adult) (pediatric) (principal) | CPT/HCPCS: 99214; G0463; 99212 ==

== ENCOUNTER 2018-06-19 09:55 | Outpatient (CLI) | payer MEDICARE, OTHER | END 2018-06-19 09:56 | disposition home or self-care (01) | LOC: LAB.F 09:55 | PROVIDERS: ATTEND Internal Medicine Cardiovascular Disease | DX: I48.91 Unspecified atrial fibrillation (principal); Z95.4 Presence of other heart-valve replacement | CPT/HCPCS: 85610 ==

== ENCOUNTER 2018-08-05 11:11 | Outpatient (CLI) | payer MEDICARE, OTHER | END 2018-08-05 11:12 | disposition home or self-care (01) | LOC: LAB.F 11:11 | PROVIDERS: ATTEND Internal Medicine Cardiovascular Disease | DX: I48.91 Unspecified atrial fibrillation (principal); Z95.4 Presence of other heart-valve replacement | CPT/HCPCS: 85610 ==

== ENCOUNTER 2018-09-02 12:14 | Outpatient (CLI) | payer MEDICARE, OTHER | END 2018-09-02 12:15 | disposition home or self-care (01) | LOC: LAB.S 12:14 | PROVIDERS: ATTEND Internal Medicine Cardiovascular Disease | DX: I48.91 Unspecified atrial fibrillation (principal); Z95.4 Presence of other heart-valve replacement | CPT/HCPCS: 85610 ==

== ENCOUNTER 2018-10-08 14:38 | Outpatient (CLI) | payer MEDICARE, OTHER | END 2018-10-08 14:39 | disposition home or self-care (01) | LOC: LAB.S 14:38 | PROVIDERS: ATTEND Internal Medicine Cardiovascular Disease | DX: I48.91 Unspecified atrial fibrillation (principal); Z95.4 Presence of other heart-valve replacement | CPT/HCPCS: 85610 ==

== ENCOUNTER 2018-10-22 13:50 | Outpatient (CLI) | payer MEDICARE, OTHER | END 2018-10-22 13:51 | disposition home or self-care (01) | LOC: LAB.S 13:50 | PROVIDERS: ATTEND Internal Medicine Cardiovascular Disease | DX: I48.91 Unspecified atrial fibrillation (principal); Z95.4 Presence of other heart-valve replacement | CPT/HCPCS: 85610 ==

== ENCOUNTER 2018-11-07 13:04 | Outpatient (CLI) | payer MEDICARE, OTHER ==
[2018-11-07 17:56] LABS: CALCIUM 8.8 mg/dL (8.5-10.3); CREATININE 1.7 mg/dL (0.6-1.2)
== END 2018-11-07 13:05 | disposition home or self-care (01) ==
LOC: LAB.S 13:04
PROVIDERS: ATTEND Internal Medicine Cardiovascular Disease
DX: I48.91 Unspecified atrial fibrillation (principal); I50.22 Chronic systolic (congestive) heart failure; Z95.4 Presence of other heart-valve replacement
CPT/HCPCS: 36415; 80048; 85610

== ENCOUNTER 2018-11-21 15:21 | Outpatient (CLI) | payer MEDICARE, OTHER | END 2018-11-21 15:22 | disposition home or self-care (01) | LOC: LAB.S 15:21 | PROVIDERS: ATTEND Internal Medicine Cardiovascular Disease | DX: I48.91 Unspecified atrial fibrillation (principal); Z95.4 Presence of other heart-valve replacement | CPT/HCPCS: 85610 ==

== ENCOUNTER 2018-12-04 10:25 | Outpatient (CLI) | payer MEDICARE, OTHER | END 2018-12-04 10:26 | disposition home or self-care (01) | LOC: LAB.S 10:25 | PROVIDERS: ATTEND Internal Medicine Cardiovascular Disease | DX: I48.91 Unspecified atrial fibrillation (principal); Z95.4 Presence of other heart-valve replacement | CPT/HCPCS: 85610 ==

== ENCOUNTER 2018-12-19 11:00 | Outpatient (CLI) | payer MEDICARE, OTHER | END 2018-12-19 11:01 | disposition home or self-care (01) | LOC: LAB.S 11:00 | PROVIDERS: ATTEND Internal Medicine Cardiovascular Disease | DX: I48.91 Unspecified atrial fibrillation (principal); Z95.4 Presence of other heart-valve replacement | CPT/HCPCS: 85610 ==

== ENCOUNTER 2019-01-10 12:19 | Outpatient (CLI) | payer MEDICARE, OTHER | END 2019-01-10 23:59 | disposition home or self-care (01) | LOC: LAB.S 12:19 | PROVIDERS: ATTEND Internal Medicine Cardiovascular Disease | DX: I48.91 Unspecified atrial fibrillation (principal); Z95.4 Presence of other heart-valve replacement | CPT/HCPCS: 85610 ==

== ENCOUNTER 2019-01-29 12:47 | Emergency (ER) | payer MEDICARE, OTHER ==
[2019-01-29 12:56] VITALS: BP 112/73
--- NOTE | 2019-01-29 15:05 | ED Physician Documentation ---
PD HPI UPPER EXT INJURY - Stated complaint Stated Complaint: LT THUMB LAC - Chief complaint Chief Complaint: Laceration - History obtained from History obtained from: Patient - History of Present Illness Location: Left, Finger Type of injury: Laceration (cutting fruit and knife slipped, cutting tip of thumb. Not big cut but it did not want to stop bleeding, despite bandaging and direct pressure.) Where injury occurred: Home Timing - onset: Today Timing - details: Abrupt onset Associated symptoms: No: Weakness, Numbness Contributing factors: Anticoagulated Recently seen: Not recently seen Review of Systems Skin: reports: Laceration (s) (tip of thumb, not at nailbed.) Neurologic: denies: Focal weakness, Numbness PD PAST MEDICAL HISTORY - Past Medical History Cardiovascular: Congestive heart failure, Hypertension, High cholesterol, Coronary artery disease, Atrial fibrillation Respiratory: None Endocrine/Autoimmune: None GI: GERD, Colon polyps, Diverticulitis : None HEENT: Chronic vision loss, Chronic hearing loss Psych: Depression, Bipolar disorder, Obsessive compulsive disorder Musculoskeletal: Osteoarthritis, Fatigue, Chronic back pain, Other Derm: Eczema, Psoriasis - Past Surgical History Past Surgical History: Yes Ortho: Hip replacement, Shoulder arthroplasty, Amputation Cardiovascular: Valve replacement, Pacemaker, AICD, Cardiac catheterization, Angioplasty, Other HEENT: Cataracts - Present Medications Home Medications: Ambulatory Orders Medication Instructions Recorded Confirmed Allopurinol 150 mg PO QPM 07/27/13 03/22/17 Aspirin Chewable [St Jimbo 81 mg PO DAILY 07/27/13 03/22/17 Aspirin] Diazepam 5 mg PO Q8H PRN 07/27/13 03/22/17 Digoxin 125 mcg PO DAILY 07/27/13 03/22/17 Dutasteride [Avodart] 0.5 mg PO DAILY 07/27/13 03/22/17 Furosemide [Lasix] 40 mg PO DAILY 07/27/13 03/22/17 Levothyroxine [Synthroid] 1.5 tab PO DAILY 07/27/13 03/22/17 Magnesium Chloride [Slo Mag] 64 mg PO BID 07/27/13 03/22/17 Metoprolol Succinate [Toprol Xl] 75 mg PO DAILY 07/27/13 03/22/17 Omeprazole 20 mg PO DAILY 07/27/13 03/22/17 Quetiapine Xr [Seroquel Xr] 300 mg PO DAILY PM 07/27/13 03/22/17 Sertraline HCl 200 mg PO DAILY 07/27/13 03/22/17 Temazepam 15 mg PO QPM PRN 07/27/13 03/22/17 Trospium Chloride [Sanctura] 60 mg PO DAILY MDD at NOON 07/27/13 03/22/17 Warfarin [Coumadin] 5 mg PO SUTUTHSA 07/27/13 03/22/17 Cyanocobalamin/Folic Acid [Vitamin 1 tab PO DAILY 08/12/13 03/22/17 X48-Ibcvi Acid Tablet] Lisinopril 5 mg PO DAILY 09/18/16 03/22/17 Warfarin [Coumadin] 2.5 mg PO MOWEFR 09/18/16 03/22/17 Cholecalciferol (Vitamin D3) 2,000 unit PO DAILY 09/26/16 03/22/17 [Vitamin D] Doxycycline Hyclate 100 mg PO BID #14 tablet 08/03/17 - Allergies Allergies/Adverse Reactions: Allergies Allergy/AdvReac Type Severity Reaction Status Date / Time hydromorphone HCl * Allergy Severe Hallucinati Verified 01/29/19 12:56 [From Dilaudid] ons codeine Allergy Unknown Verified 01/29/19 12:56 duloxetine HCl * Allergy Anxiety Verified 01/29/19 12:56 [From Cymbalta] gabapentin [From Neurontin] Allergy Anxiety Verified 01/29/19 12:56 oxycodone HCl * Allergy Hallucinati Verified 01/29/19 12:56 [From OxyContin] ons - Social History Does the pt smoke?: No Smoking Status: Never smoker Does the pt drink ETOH?: Yes Does the pt have substance abuse?: No - Immunizations Immunizations are current?: Yes Immunizations: TDAP current <10years - POLST Patient has POLST: No PD ED PE NORMAL - Vitals Vital signs reviewed: Yes - General General: Alert and oriented X 3, No acute distress, Well developed/nourished - Derm Derm: Normal color, Warm and dry - Extremities Extremities: Other (The left thumb has a 1 cm laceration at the tip not involving the nailbed. There is no foreign body and no active bleeding at this time. He is good range of motion of the thumb with normal sensation.) Results - Vitals Vitals: Vital Signs - 24 hr 01/29/19 01/29/19 12:51 15:39 Temperature 98.6 C H 37.1 C Heart Rate 90 Respiratory 14 Rate Blood Pressure 112/73 O2 Saturation 95 Oxygen O2 Source Room air - Labs Labs: Laboratory Tests 01/29/19 15:46 Whole Blood INR 4.0 H Procedures - Laceration (location) left thumb Length in cm: 1 Wound type: Linear, Into subcut fat, Clean Neurovascular status: Sensory intact, Motor intact Tendon involvement: Tendon intact Wound Preparation: Wound explored, To the base. No: FB identified Skin layer closure: Dermabond, Steri strips Other: Patient tolerated well, No complications PD MEDICAL DECISION MAKING - ED course Complexity details: considered differential (at this point, the bleeding is stopped and can treat it with tape and glue. ), d/w patient Departure - Departure Disposition: 01 Home, Self Care Clinical Impression: Thumb laceration Qualifiers: Encounter type: initial encounter Damage to nail status: without damage Foreign body presence: without foreign body Laterality: left Qualified Code(s): S61.012A - Laceration without foreign body of left thumb without damage to nail, initial encounter Condition: Stable Record reviewed to determine appropriate education?: Yes Instructions: ED Laceration Hand Follow-Up: Bobo Morse MD [Primary Care Provider] - Comments: Keep the thumb clean and dry so the tapes and glue will stay on. They should loosen up and fall off after several days. At that point start doing regular wound care with cleaning gently with soap and water and use ointment and bandage. Your Coumadin level/INR today is 4.0. Hold your tonight's Coumadin dose and then resume as usual. Follow-up with your primary care for recheck of your INR in about a week. You did get a tetanus booster today. Use Tylenol if needed for pains. Recheck if signs of infection Discharge Date/Time: 01/29/19 16:16
[2019-01-29] MEDS ORDERED: TETANUS/DIPHTHERIA/PERTUSSIS 0.5 ML SYRINGE IM ONE (15:38)
== END 2019-01-29 16:16 | disposition home or self-care (01) ==
LOC: ED 12:47
DX: S61.012A Laceration without foreign body of left thumb without damage to nail, initial encounter (principal); W26.0XXA Contact with knife, initial encounter; Y93.G1 Activity, food preparation and clean up; Y92.009 Unspecified place in unspecified non-institutional (private) residence as the place of occurrence of the external cause; Z23 Encounter for immunization; Z79.01 Long term (current) use of anticoagulants; Z79.82 Long term (current) use of aspirin; Z95.2 Presence of prosthetic heart valve; I11.0 Hypertensive heart disease with heart failure; I50.9 Heart failure, unspecified
CPT/HCPCS: 12001; 85610; 90471

== ENCOUNTER 2019-02-07 11:52 | Outpatient (CLI) | payer MEDICARE, OTHER | END 2019-02-07 11:53 | disposition home or self-care (01) | LOC: LAB.S 11:52 | PROVIDERS: ATTEND Internal Medicine Cardiovascular Disease | DX: I48.91 Unspecified atrial fibrillation (principal); Z95.4 Presence of other heart-valve replacement | CPT/HCPCS: 85610 ==

== ENCOUNTER 2019-02-14 13:52 | Outpatient (CLI) | payer MEDICARE, OTHER | END 2019-02-14 13:53 | disposition home or self-care (01) | LOC: LAB.S 13:52 | PROVIDERS: ATTEND Internal Medicine Cardiovascular Disease | DX: Z95.4 Presence of other heart-valve replacement (principal); I48.91 Unspecified atrial fibrillation | CPT/HCPCS: 85610 ==

== ENCOUNTER 2019-03-13 11:43 | Outpatient (CLI) | payer MEDICARE, OTHER | END 2019-03-13 11:44 | disposition home or self-care (01) | LOC: LAB.S 11:43 | PROVIDERS: ATTEND Internal Medicine Cardiovascular Disease | DX: I48.91 Unspecified atrial fibrillation (principal); Z95.4 Presence of other heart-valve replacement | CPT/HCPCS: 85610 ==

== ENCOUNTER 2019-03-20 11:11 | Outpatient (CLI) | payer MEDICARE, OTHER | END 2019-03-20 11:12 | disposition home or self-care (01) | LOC: LAB.S 11:11 | PROVIDERS: ATTEND Internal Medicine Cardiovascular Disease | DX: Z95.4 Presence of other heart-valve replacement (principal); I48.91 Unspecified atrial fibrillation | CPT/HCPCS: 85610 ==

== ENCOUNTER 2019-04-08 16:10 | Outpatient (CLI) | payer MEDICARE, OTHER | END 2019-04-08 16:11 | disposition short-term general hospital (02) | LOC: EMS 16:10 | PROVIDERS: ATTEND Surgery | DX: R07.89 Other chest pain (principal); R06.09 Other forms of dyspnea | CPT/HCPCS: A0425; A0427 ==

== ENCOUNTER 2019-04-21 11:07 | Outpatient (CLI) | payer MEDICARE, OTHER | END 2019-04-21 11:08 | disposition home or self-care (01) | LOC: LAB.S 11:07 | PROVIDERS: ATTEND Internal Medicine Cardiovascular Disease | DX: I48.91 Unspecified atrial fibrillation (principal); Z95.4 Presence of other heart-valve replacement | CPT/HCPCS: 85610 ==

== ENCOUNTER 2019-04-28 11:07 | Outpatient (CLI) | payer MEDICARE, OTHER | END 2019-04-28 11:08 | disposition home or self-care (01) | LOC: LAB.S 11:07 | PROVIDERS: ATTEND Internal Medicine Cardiovascular Disease | DX: I48.91 Unspecified atrial fibrillation (principal); Z95.4 Presence of other heart-valve replacement | CPT/HCPCS: 85610 ==

== ENCOUNTER 2019-05-05 11:38 | Outpatient (CLI) | payer MEDICARE, OTHER | END 2019-05-05 11:39 | disposition home or self-care (01) | LOC: LAB.S 11:38 | PROVIDERS: ATTEND Internal Medicine Cardiovascular Disease | DX: I48.91 Unspecified atrial fibrillation (principal); Z95.4 Presence of other heart-valve replacement | CPT/HCPCS: 85610 ==

== ENCOUNTER 2019-05-13 13:08 | Outpatient (CLI) | payer MEDICARE, OTHER | END 2019-05-13 13:09 | disposition home or self-care (01) | LOC: LAB.S 13:08 | PROVIDERS: ATTEND Internal Medicine Cardiovascular Disease | DX: I48.91 Unspecified atrial fibrillation (principal); Z95.4 Presence of other heart-valve replacement | CPT/HCPCS: 85610 ==

== ENCOUNTER 2019-05-29 11:24 | Outpatient (CLI) | payer MEDICARE, OTHER | END 2019-05-29 11:25 | disposition home or self-care (01) | LOC: LAB.S 11:24 | PROVIDERS: ATTEND Internal Medicine Cardiovascular Disease | DX: I48.91 Unspecified atrial fibrillation (principal); Z95.4 Presence of other heart-valve replacement | CPT/HCPCS: 85610 ==

== ENCOUNTER 2020-02-26 11:16 | Outpatient (CLI) | payer MEDICARE, OTHER | END 2020-02-26 11:17 | disposition critical access hospital (66) | LOC: EMS 11:16 | PROVIDERS: ATTEND Surgery | DX: R53.1 Weakness (principal) | CPT/HCPCS: A0425; A0429 ==

== ENCOUNTER 2020-02-26 11:43 | Inpatient (IN) | payer MEDICARE, OTHER ==
[2020-02-26 12:45] LABS: BASOPHILS % (AUTO) 0.3 %; EOSINOPHILS # (AUTO) 0.1 10^3/uL (0.0-0.7); EOSINOPHILS % (AUTO) 2.8 %; HGB - HEMOGLOBIN 8.8 g/dL (14.0-18.0); LYMPHOCYTES # (AUTO) 0.9 10^3/uL (1.5-3.5); LYMPHOCYTES % (AUTO) 24.4 %; MEAN CORPUSCULAR HEMOGLOBIN 31.4 pg (27.0-31.0); MEAN CORPUSCULAR HGB CONC 32.1 g/dL (32.0-36.0); MEAN CORPUSCULAR VOLUME 97.9 fL (80.0-94.0); MEAN PLATELET VOLUME 9.8 fL (7.4-11.4); MONOCYTES # (AUTO) 0.4 10^3/uL (0.0-1.0); MONOCYTES % (AUTO) 10.5 %; NEUTROPHILS # (AUTO) 2.2 10^3/uL (1.5-6.6); NEUTROPHILS % (AUTO) 61.7 %; PLT - PLATELET COUNT 136 10^3/uL (130-450); RED CELL DISTRIBUTION WIDTH 14.4 % (12.0-15.0); WHITE BLOOD COUNT 3.6 x10^3/uL (4.8-10.8)
[2020-02-26 12:53] LABS: PT - PROTHROMBIN TIME 50.1 secs (9.9-12.6)
[2020-02-26 13:05] LABS: PARTIAL THROMBOPLASTIN TIME 52.4 secs (24.9-33.3)
[2020-02-26 13:06] LABS: ALBUMIN 3.8 g/dL (3.2-5.5); ALBUMIN/GLOBULIN RATIO 1.1 (1.0-2.2); BILIRUBIN,TOTAL 0.3 mg/dL (0.2-1.0); CALCIUM 8.6 mg/dL (8.5-10.3); CREATININE 2.1 mg/dL (0.6-1.2); TOTAL PROTEIN 7.4 g/dL (6.7-8.2)
[2020-02-26 13:38] LABS: C. PNEUMONIAE- RESP PCR PANEL NOT DETECTED
[2020-02-26] MEDS ORDERED: LACTATED RINGERS 500 ML IV ONE (13:41)
[2020-02-26] MEDS ORDERED: PHYTONADIONE 10 MG/ML AMP PO ONE (13:45)
[2020-02-26] MEDS ORDERED: CHERRY SYRUP 10 ML UDC PO ONE (13:45)
--- NOTE | 2020-02-26 13:47 | ED Physician Documentation ---
History of Present Illness - Stated complaint Stated Complaint: ABNORMAL LABS - Chief complaint Chief Complaint: Neuro - History obtained from History obtained from: Patient, Other (Primary Dr. Raymond) - Additonal information Additional information: 79-year-old man with past medical history of prosthetic heart valve on Coumadin, anemia for the past month, presents with dark tarry stools ongoing, most recent yesterday x1. Patient was sent by his primary doctor Dr. Raymond who called ahead about his downtrending hemoglobin and acute kidney injury. Patient himself endorses weakness that has been gradual onset, progressive, constant associated with generalized malaise. He does have some mild dyspnea on exertion but no chest pain, fever, vomiting or bright red blood per rectum. Review of Systems Ten Systems: 10 systems reviewed and negative Constitutional: denies: Fever, Chills Cardiac: denies: Chest pain / pressure, Palpitations Respiratory: reports: Dyspnea. denies: Cough GI: reports: Bloody / black stool. denies: Abdominal Pain, Nausea, Vomiting : denies: Dysuria PD PAST MEDICAL HISTORY - Past Medical History Cardiovascular: Congestive heart failure, Hypertension, Coronary artery disease, [place], Atrial fibrillation, Valve disorder Respiratory: Sleep apnea, CPAP use Endocrine/Autoimmune: HyPOthyroidism GI: GERD, GI bleed, Colon polyps : Incontinence, Other HEENT: Chronic vision loss, Chronic hearing loss, Other Psych: Depression, Bipolar disorder Musculoskeletal: Osteoarthritis, Gout, Chronic back pain Derm: Other - Past Surgical History Past Surgical History: Yes Ortho: Hip replacement, Shoulder arthroplasty, Amputation Cardiovascular: Valve replacement, Pacemaker, AICD, Cardiac catheterization, Angioplasty, Other HEENT: Cataracts Derm: Skin cancer surgery - Present Medications Home Medications: Ambulatory Orders Medication Instructions Recorded Confirmed Aspirin Chewable [St Jimbo 81 mg PO DAILY 07/27/13 02/26/20 Aspirin] Diazepam 5 mg PO QPM PRN 07/27/13 02/27/20 Digoxin 125 mcg PO DAILY 07/27/13 02/26/20 Dutasteride [Avodart] 0.5 mg PO DAILY 07/27/13 02/27/20 Furosemide [Lasix] 40 mg PO DAILY 07/27/13 02/26/20 Levothyroxine [Synthroid] 75 mcg PO DAILY 07/27/13 02/27/20 Magnesium Chloride [Slo Mag] 64 mg PO BID 07/27/13 02/26/20 Sertraline HCl 100 mg PO BID 07/27/13 02/26/20 Temazepam 15 mg PO QPM PRN 07/27/13 02/26/20 Trospium Chloride [Sanctura] 60 mg PO DAILY MDD at NOON 07/27/13 02/26/20 Warfarin [Coumadin] 5 mg PO SUTUTHSA 07/27/13 02/26/20 allopurinoL [Allopurinol] 150 mg PO QPM 07/27/13 02/26/20 Cyanocobalamin/Folic Acid [Vitamin 1 tab PO DAILY 08/12/13 02/27/20 H14-Vhdow Acid Tablet] Warfarin [Coumadin] 2.5 mg PO MOWEFR 09/18/16 02/26/20 lisinopriL [Lisinopril] 5 mg PO DAILY 09/18/16 02/26/20 Omeprazole 40 mg PO QDAC 02/26/20 02/27/20 Acetaminophen [Acetaminophen Extra 500 mg PO Q6H PRN 02/27/20 02/27/20 Strength] Calcium Carbonate/Vitamin D3 1 tab PO BID 02/27/20 02/27/20 [Calcium 500 mg-Vit D3 600 Unit] Diphenhydramine HCl [Benadryl] 50 mg PO Q6H PRN 02/27/20 02/27/20 Metoprolol Succinate [Toprol Xl] 100 mg PO DAILY 02/27/20 02/27/20 Quetiapine Fumarate [Seroquel Xr] 300 mg PO QPM 02/27/20 02/27/20 - Allergies Allergies/Adverse Reactions: Allergies Allergy/AdvReac Type Severity Reaction Status Date / Time hydromorphone HCl * Allergy Severe Hallucinati Verified 02/26/20 11:54 [From Dilaudid] ons codeine Allergy Unknown Verified 02/26/20 11:54 duloxetine HCl * Allergy Anxiety Verified 02/26/20 11:54 [From Cymbalta] gabapentin [From Neurontin] Allergy Anxiety Verified 02/26/20 11:54 oxycodone HCl * Allergy Hallucinati Verified 02/26/20 11:54 [From OxyContin] ons - Social History Does the pt smoke?: No Smoking Status: Never smoker Does the pt drink ETOH?: Yes Does the pt have substance abuse?: No - Immunizations Immunizations are current?: Yes Immunizations: TDAP current <10years - POLST Patient has POLST: No PD ED PE NORMAL - Vitals Vital signs reviewed: Yes - General General: Alert and oriented X 3 - HEENT HEENT: Atraumatic, PERRL, EOMI - Cardiac Cardiac: Other (Borderline tachycardic rate. Regular rhythm) - Respiratory Respiratory: No respiratory distress - Abdomen Abdomen: Normal bowel sounds, Soft, Non tender, Non distended - Male Male : Deferred - Rectal Rectal: Other (brown stool) - Back Back: No CVA TTP - Derm Derm: Normal color - Extremities Extremities: No deformity - Neuro Neuro: Alert and oriented X 3 - Psych Psych: Normal mood, Normal affect Results - Vitals Vitals: Vital Signs - 24 hr 02/27/20 08:00 Temperature 36.7 C Heart Rate [ 77 Brachial] Respiratory 16 Rate Blood Pressure 119/73 [Right Brachial artery] O2 Saturation 95 Oxygen O2 Source Room air - Labs Labs: Laboratory Tests 02/26/20 02/26/20 02/26/20 12:18 12:18 12:18 WBC 3.6 L RBC 2.80 L Hgb 8.8 L Hct 27.4 L MCV 97.9 H MCH 31.4 H MCHC 32.1 RDW 14.4 Plt Count 136 MPV 9.8 Reticulocyte % (Auto) Neut # (Auto) 2.2 Lymph # (Auto) 0.9 L Barbour # (Auto) 0.4 Eos # (Auto) 0.1 Baso # (Auto) 0.0 Absolute Nucleated RBC 0.00 Nucleated RBC % 0.0 Absolute Retic PT 50.1 H INR 5.0 H* APTT 52.4 H Sodium 134 L Potassium 4.4 Chloride 103 Carbon Dioxide 22 Anion Gap 9.0 BUN 68 H Creatinine 2.1 H Estimated GFR (MDRD) 31 L Glucose 130 H Calcium 8.6 Magnesium Iron TIBC % Saturation Transferrin Ferritin Total Bilirubin 0.3 AST 22 ALT 18 Alkaline Phosphatase 62 Lactate Dehydrogenase Total Protein 7.4 Albumin 3.8 Globulin 3.6 Albumin/Globulin Ratio 1.1 Lipase 26 Vitamin B12 TSH Nasal Adenovirus (PCR) Nasal B. parapertussis DNA (PCR) Nasal Coronavir 229E PCR Nasal Coronavir HKU1 PCR Nasal Coronavir NL63 PCR Nasal Coronavir OC43 PCR Nasal Enterovir/Rhinovir PCR Nasal Influenza B PCR Nasal Influenza A PCR Nasal Parainfluen 1 PCR Nasal Parainfluen 2 PCR Nasal Parainfluen 3 PCR Nasal Parainfluen 4 PCR Nasal RSV (PCR) Nasal B.pertussis DNA PCR Nasal C.pneumoniae (PCR) Raulito Human Metapneumo PCR Nasal M.pneumoniae (PCR) Nasal SARS-CoV-2 (PCR) Last Dose Date Last Dose Time Digoxin Blood Type Antibody Screen Crossmatch IS Only 02/26/20 02/26/20 02/26/20 12:18 12:18 12:18 WBC RBC 2.81 L Hgb Hct MCV MCH MCHC RDW Plt Count MPV Reticulocyte % (Auto) 4.62 H Neut # (Auto) Lymph # (Auto) Barbour # (Auto) Eos # (Auto) Baso # (Auto) Absolute Nucleated RBC Nucleated RBC % Absolute Retic 0.130 H PT INR APTT Sodium Potassium Chloride Carbon Dioxide Anion Gap BUN Creatinine Estimated GFR (MDRD) Glucose Calcium Magnesium Iron 32 L TIBC 356 % Saturation 9 L Transferrin 254 Ferritin Total Bilirubin AST ALT Alkaline Phosphatase Lactate Dehydrogenase Total Protein Albumin Globulin Albumin/Globulin Ratio Lipase Vitamin B12 TSH Nasal Adenovirus (PCR) Nasal B. parapertussis DNA (PCR) Nasal Coronavir 229E PCR Nasal Coronavir HKU1 PCR Nasal Coronavir NL63 PCR Nasal Coronavir OC43 PCR Nasal Enterovir/Rhinovir PCR Nasal Influenza B PCR Nasal Influenza A PCR Nasal Parainfluen 1 PCR Nasal Parainfluen 2 PCR Nasal Parainfluen 3 PCR Nasal Parainfluen 4 PCR Nasal RSV (PCR) Nasal B.pertussis DNA PCR Nasal C.pneumoniae (PCR) Raulito Human Metapneumo PCR Nasal M.pneumoniae (PCR) Nasal SARS-CoV-2 (PCR) Last Dose Date [id number] Last Dose Time 1425 Digoxin 1.1 Blood Type Antibody Screen Crossmatch IS Only 02/26/20 02/26/20 02/26/20 12:18 12:18 12:23 WBC RBC Hgb Hct MCV MCH MCHC RDW Plt Count MPV Reticulocyte % (Auto) Neut # (Auto) Lymph # (Auto) Barbour # (Auto) Eos # (Auto) Baso # (Auto) Absolute Nucleated RBC Nucleated RBC % Absolute Retic PT INR APTT Sodium Potassium Chloride Carbon Dioxide Anion Gap BUN Creatinine Estimated GFR (MDRD) Glucose Calcium Magnesium Iron TIBC % Saturation Transferrin Ferritin 21.4 L Total Bilirubin AST ALT Alkaline Phosphatase Lactate Dehydrogenase 119 Total Protein Albumin Globulin Albumin/Globulin Ratio Lipase Vitamin B12 345 TSH Nasal Adenovirus (PCR) NOT DETECTED Nasal B. parapertussis DNA (PCR) NOT DETECTED Nasal Coronavir 229E PCR NOT DETECTED Nasal Coronavir HKU1 PCR NOT DETECTED Nasal Coronavir NL63 PCR NOT DETECTED Nasal Coronavir OC43 PCR NOT DETECTED Nasal Enterovir/Rhinovir PCR NOT DETECTED Nasal Influenza B PCR NOT DETECTED Nasal Influenza A PCR NOT DETECTED Nasal Parainfluen 1 PCR NOT DETECTED Nasal Parainfluen 2 PCR NOT DETECTED Nasal Parainfluen 3 PCR NOT DETECTED Nasal Parainfluen 4 PCR NOT DETECTED Nasal RSV (PCR) NOT DETECTED Nasal B.pertussis DNA PCR NOT DETECTED Nasal C.pneumoniae (PCR) NOT DETECTED Raulito Human Metapneumo PCR NOT DETECTED Nasal M.pneumoniae (PCR) NOT DETECTED Nasal SARS-CoV-2 (PCR) NOT DETECTED Last Dose Date Last Dose Time Digoxin Blood Type Antibody Screen Crossmatch IS Only 02/26/20 02/26/20 02/27/20 12:28 21:02 04:20 WBC 3.1 L RBC 3.04 L Hgb 9.8 L 9.2 L Hct 29.6 L 28.4 L MCV 93.4 MCH 30.3 MCHC 32.4 RDW 18.1 H Plt Count 128 L MPV 9.5 Reticulocyte % (Auto) Neut # (Auto) 1.9 Lymph # (Auto) 0.8 L Barbour # (Auto) 0.3 Eos # (Auto) 0.1 Baso # (Auto) 0.0 Absolute Nucleated RBC 0.00 Nucleated RBC % 0.0 Absolute Retic PT INR APTT Sodium Potassium Chloride Carbon Dioxide Anion Gap BUN Creatinine Estimated GFR (MDRD) Glucose Calcium Magnesium Iron TIBC % Saturation Transferrin Ferritin Total Bilirubin AST ALT Alkaline Phosphatase Lactate Dehydrogenase Total Protein Albumin Globulin Albumin/Globulin Ratio Lipase Vitamin B12 TSH Nasal Adenovirus (PCR) Nasal B. parapertussis DNA (PCR) Nasal Coronavir 229E PCR Nasal Coronavir HKU1 PCR Nasal Coronavir NL63 PCR Nasal Coronavir OC43 PCR Nasal Enterovir/Rhinovir PCR Nasal Influenza B PCR Nasal Influenza A PCR Nasal Parainfluen 1 PCR Nasal Parainfluen 2 PCR Nasal Parainfluen 3 PCR Nasal Parainfluen 4 PCR Nasal RSV (PCR) Nasal B.pertussis DNA PCR Nasal C.pneumoniae (PCR) Raulito Human Metapneumo PCR Nasal M.pneumoniae (PCR) Nasal SARS-CoV-2 (PCR) Last Dose Date Last Dose Time Digoxin Blood Type O POSITIVE Antibody Screen NEGATIVE Crossmatch IS Only See Detail 02/27/20 02/27/20 02/27/20 04:20 04:20 04:20 WBC RBC Hgb Hct MCV MCH MCHC RDW Plt Count MPV Reticulocyte % (Auto) Neut # (Auto) Lymph # (Auto) Barbour # (Auto) Eos # (Auto) Baso # (Auto) Absolute Nucleated RBC Nucleated RBC % Absolute Retic PT 29.1 H INR 2.8 H APTT Sodium 138 Potassium 4.6 Chloride 106 Carbon Dioxide 23 Anion Gap 9.0 BUN 55 H Creatinine 1.8 H Estimated GFR (MDRD) 36 L Glucose 103 H Calcium 8.3 L Magnesium 2.2 Iron TIBC % Saturation Transferrin Ferritin Total Bilirubin AST ALT Alkaline Phosphatase Lactate Dehydrogenase Total Protein Albumin Globulin Albumin/Globulin Ratio Lipase Vitamin B12 TSH 5.71 H Nasal Adenovirus (PCR) Nasal B. parapertussis DNA (PCR) Nasal Coronavir 229E PCR Nasal Coronavir HKU1 PCR Nasal Coronavir NL63 PCR Nasal Coronavir OC43 PCR Nasal Enterovir/Rhinovir PCR Nasal Influenza B PCR Nasal Influenza A PCR Nasal Parainfluen 1 PCR Nasal Parainfluen 2 PCR Nasal Parainfluen 3 PCR Nasal Parainfluen 4 PCR Nasal RSV (PCR) Nasal B.pertussis DNA PCR Nasal C.pneumoniae (PCR) Raulito Human Metapneumo PCR Nasal M.pneumoniae (PCR) Nasal SARS-CoV-2 (PCR) Last Dose Date Last Dose Time Digoxin Blood Type Antibody Screen Crossmatch IS Only PD MEDICAL DECISION MAKING - ED course Complexity details: reviewed results, re-evaluated patient, d/w patient, d/w web development consultant ED course: 79-year-old man with upper GI bleed, in need of endoscopy. Also with downtrending hemoglobin and mild GERARDO with INR of 5. Discussed with hospitalistwill administer vitamin K and 1 unit PRBC as well as 500 cc IV fluids to start with. Patient amenable to staying. plan for inpatient endoscopy Departure - Departure Disposition: 66 [facility] DC/Xfer Clinical Impression: GERARDO (acute kidney injury), Weakness, Anemia, Dark stools, Dizziness Condition: Stable Discharge Date/Time: 02/26/20 14:49
[2020-02-26] MEDS ORDERED: ONDANSETRON 4 MG/2 ML VIAL IVP PRN (14:15)
[2020-02-26] MEDS ORDERED: SODIUM CHLORIDE FLUSH 0.9% 10 ML SYRINGE IVP PRN (14:15)
[2020-02-26] MEDS ORDERED: ACETAMINOPHEN 325 MG TABLET PO PRN (14:15)
[2020-02-26] MEDS ORDERED: TEMAZEPAM 15 MG CAPSULE PO PRN (14:22)
[2020-02-26] MEDS ORDERED: diazePAM 5 MG TABLET PO PRN (14:22)
[2020-02-26] MEDS ORDERED: QUETIAPINE 200 MG PO SCH (14:30)
--- NOTE | 2020-02-26 14:31 | HISTORY & PHYSICAL EXAMINATION ---
Chief Complaint - Chief Complaint Chief Complaint: Gi bleed History of Present Illness - Admitted From Admitted From:: ER - History Obtained From Records Reviewed: [facility] History obtained from: pt Exam Limitations: no - History of Present Illness HPI Comment/Other: 79-year-old man with past medical history of GI bleeding, prosthetic heart valve on Coumadin since 2003, Congestive heart failure, Hypertension, Coronary artery disease, [place], Atrial fibrillation, anemia, Sleep apnea on CPAP use, Hypothyroidism, GERD, chronic vision loss, chronic hearing loss, Major depression, bipolar disease, osteomyelitis, gout, chronic back pain, who presents ER complain of dark tarry stool and weakness.Patient was sent by his primary doctor Dr. Raymond who called ahead about his down trending hemoglobin, and increased creatinine and acute kidney injury. Patient reported couple months ago he had GI bleeding, and he had a colonoscopy which did remove some polyps. After that, patient report he is doing fine. Patient reported he found that he had dark tarry stool couple days ago. At the same time he feel weak and some kind of dizziness. He denies abdominal pain, nausea, vomiting, diarrhea, fever, shortness breathing, cough, chest pain. Routine laboratory tests that show patient had hemoglobin 8.8 on today, patient had a hemoglobin 10.3 reported about 2 years ago. Patient had a creatinine 2.1 on today, patient had creatinine 1.7 about 1 year ago. Patient takes Coumadin at home, today patient INR is 5.0, patient was given vitamin K in the ER. General surgeon was called by the ER and plain tomorrow EGD and colonoscopy for patient. Discussed the care goal with the patient, patient request DNR, "Do not do any more to me." History - Past Medical History Cardiovascular: reports: Congestive heart failure, Hypertension, Coronary artery disease, [place], Atrial fibrillation, Valve disorder Respiratory: reports: Sleep apnea, CPAP use Endocrine/Autoimmune: reports: HyPOthyroidism GI: reports: GERD, GI bleed, Colon polyps : reports: Incontinence, Other HEENT: reports: Chronic vision loss, Chronic hearing loss, Other Psych: reports: Depression, Bipolar disorder Musculoskeletal: reports: Osteoarthritis, Gout, Chronic back pain Derm: reports: Other MRSA Hx?: No - Past Surgical History Ortho: reports: Hip replacement, Shoulder arthroplasty, Amputation Cardiovascular: reports: Valve replacement, Pacemaker, AICD, Cardiac catheterization, Angioplasty, Other HEENT: reports: Cataracts Derm: reports: Skin cancer surgery - Family & Social History Family History: Mother: , Father: Family History Comment/Other: Patient reported his father at age 83 because of complication from the heart failure, The same as his mother because of com plication of heart failure she at the age 70. Social History Notes: Patient reported he live at [facility] With his , he denies history of cigarette smoker, alcohol or drug issue - POLST Patient has POLST: No Meds/Allgy - Home Medications Home Medications: Ambulatory Orders Medication Instructions Recorded Confirmed Aspirin Chewable [St Jimbo 81 mg PO DAILY 07/27/13 02/26/20 Aspirin] Diazepam 5 mg PO Q8H PRN 07/27/13 02/26/20 Digoxin 125 mcg PO DAILY 07/27/13 02/26/20 Dutasteride [Avodart] 0.5 mg PO DAILY 07/27/13 02/20/20 Furosemide [Lasix] 40 mg PO DAILY 07/27/13 02/26/20 Levothyroxine [Synthroid] 75 mcg PO DAILY 07/27/13 02/26/20 Magnesium Chloride [Slo Mag] 64 mg PO BID 07/27/13 02/26/20 Metoprolol Succinate [Toprol Xl] 100 mg PO DAILY 07/27/13 02/26/20 Quetiapine Xr [Seroquel Xr] 300 mg PO DAILY PM 07/27/13 02/26/20 Sertraline HCl 100 mg PO BID 07/27/13 02/26/20 Temazepam 15 mg PO QPM PRN 07/27/13 02/26/20 Trospium Chloride [Sanctura] 60 mg PO DAILY MDD at NOON 07/27/13 02/26/20 Warfarin [Coumadin] 5 mg PO SUTUTHSA 07/27/13 02/26/20 allopurinoL [Allopurinol] 150 mg PO QPM 07/27/13 02/26/20 Cyanocobalamin/Folic Acid [Vitamin 1 tab PO DAILY 08/12/13 02/20/20 [id number] Acid Tablet] Warfarin [Coumadin] 2.5 mg PO MOWEFR 09/18/16 02/26/20 lisinopriL [Lisinopril] 5 mg PO DAILY 09/18/16 02/26/20 Cholecalciferol (Vitamin D3) 1,200 unit PO BID 09/26/16 02/20/20 [Vitamin D] Omeprazole 20 mg PO DAILY 02/26/20 02/26/20 - Allergies Allergies/Adverse Reactions: Allergies Allergy/AdvReac Type Severity Reaction Status Date / Time hydromorphone HCl * Allergy Severe Hallucinati Verified 02/26/20 11:54 [From Dilaudid] ons codeine Allergy Unknown Verified 02/26/20 11:54 duloxetine HCl * Allergy Anxiety Verified 02/26/20 11:54 [From Cymbalta] gabapentin [From Neurontin] Allergy Anxiety Verified 02/26/20 11:54 oxycodone HCl * Allergy Hallucinati Verified 02/26/20 11:54 [From OxyContin] ons Review of Systems - Constitutional Constitutional: reports: Weakness. denies: Fever, Chills, Poor appetite, Diaphoresis, Night sweats - Eyes Eyes: denies: Pain, Blurred vision, Field loss, Vision loss, Dipolpia - Ears, Nose & Throat Ears, Nose & Throat: denies: Ear pain, Nosebleeds, Sore throat, Bleeding gums - Cardiovascular Cariovascular: denies: Irregular heart rate, Palpitations, Chest pain, Lightheadedness, Syncope, Exertional dyspnea, Decr. exercise tolerance - Respiratory Respiratory: denies: Cough, Sputum production, Wheezing, Hemoptysis, Orthopnea, SOB at rest, SOB with exertion - Gastrointestinal Gastrointestinal: reports: Black stools. denies: Abdominal pain, Constipation, Diarrhea, Rectal bleeding, Bloody stools, Nausea, Vomiting, Antonio blood emesis, Coffee grounds emesis - Genitourinary Genitourinary: denies: Dysuria, Urgency, Incontinence - Musculoskeletal Musculoskeletal: denies: Muscle pain, Muscle aches, Limited range of motion - Integumentary Integumentary: denies: Rash, Lesions, Lumps - Neurological Neurological: reports: General weakness. denies: Focal weakness, Headache, Dizziness, Numbness, Memory problems, Pre-existing deficit, Abnormal gait, Sei zures, Incoordination, Slurred speech - Psychiatric Psychiatric: denies: Depression, Suicidal, Delusions - Endocrine Endocrine: denies: Polyuria, Polyphagia - Hematologic/Lymphatic Hematologic/Lymphatic: denies: Bruising, Blood clots Exam - Vital Signs Vital Signs: Vital Signs x48h Temp Pulse Resp BP Pulse Ox 02/26/20 14:27 36.7 C 85 21 102/71 02/26/20 14:17 36.4 C L 82 10 L 125/82 H 02/26/20 11:44 36.9 C 116 H 18 118/76 97 - Physical Exam General Appearance: positive: No acute distress, Alert. negative: Lethargic Eyes Bilateral: positive: Normal inspection, PERRL, No lid inflammation ENT: positive: ENT inspection nml, No signs of dehydration. negative: Purulent nasal drainage Neck: positive: Nml inspection, Thyroid nml, Trachea midline. negative: Thyromegaly, Tracheal deviation Respiratory: positive: Chest non-tender, No respiratory distress. negative: Breath sounds nml, Wheezes, Rales, Rhonchi Cardiovascular: positive: Regular rate & rhythm, Systolic murmur, Diastolic murm ur. negative: No murmur, Tachycardia, Bradycardia Peripheral Pulses: positive: 2+ Abdomen: positive: Non-tender, Nml bowel sounds, No distention. negative: Tenderness, Guarding, Rebound Back: positive: Nml inspection. negative: CVA tenderness (R), CVA tenderness (L) Skin: positive: Color nml, No rash, Warm, Dry. negative: Cyanosis, Diaphoresis, Pallor Extremities: positive: Non-tender, Full ROM, Nml appearance. negative: Calf tenderness Neurologic/Psychiatric: positive: Oriented x3, Motor nml, Sensation nml, Mood/affect nml. negative: Weakness, Sensory loss, Facial droop, Slurred/abnml speech, Depressed mood/affect Conclusion/Plan - Problem List (1) Dark stools Conclusion/Plan: Patient reported dark tarry stool, hemoglobin is 8.8, Patient is taking Couma din, patient's INR is 5.0 at admission. Patient was given vitamin K in the ER. Patient was given 1 unit blood in the ER. We will hold Coumadin. Surgeon plan EGD and colonoscopy on tomorrow. pt are n.p.o. after midnight. H&H to monitor hemoglobin, Protonix intravenous twice daily, Continue laborer laboratory (2) Anemia Conclusion/Plan: Patient has a hemoglobin of 8.8, he had a 10.3, about 2 years ago. It is likely caused by acute GI bleeding. At the same time we will do anemia study. Patient already had a 1 unit blood transfusion in the ER. We will continue H&H to monitor hemoglobin. (3) [id number] kidney injury Conclusion/Plan: Patient creatinine 2.1, patient had a creatinine 1.7 about 1 years ago. Cli nically patient present dehydration feature. We will give patient intravenous IV fluids, continue laborer laboratory (4) History of prosthetic heart valve Conclusion/Plan: Patient has history of prosthetic heart valve Replace, Patient take Coumadin in the home. Today's INR is 5.0, Superior therapeutic range. Patient was given vitamin K in the ER. We will check continue check PT and INR. Patient is planned to have EGD and colonoscopy By surgeon. We will hold Coumadin, after the procedure we may resume patient Coumadin, Advised patient follow-up his PCP To manage Patient's coagulation status And had coagulation study, and Balance the risk and benefit of anticoagulation medication. (5) Hx of congestive heart disease Conclusion/Plan: Patient has history congestive heart failure, patient has a home medication li sinopril, metoprolol, digoxin, and aspirin. We will hold aspirin, resume other patient home medications. Continue laboratory And vital signs monitor, continue hog tender (6) A-fib Conclusion/Plan: Patient was reported to have atrial fibrillation at his history. Patient take digoxin, metoprolol we will resume. We will hold Coumadin now because of his GI bleed. Continue PT and INR study (7) Hypothyroidism Conclusion/Plan: Patient take Synthroid in the home, we will check a TSH (8) Bipolar 1 disorder Conclusion/Plan: Patient has history of bipolar, and depression, will resume patient home medications - Lab Results Fish Bones: 02/26/20 12:18 02/26/20 12:18 Core Measures - Anticipated LOS I expect patient to be DC'd or transferred within 96 hours.: Yes - DVT/VTE - Prophylaxis VTE/DVT Device ordered at admit?: Yes VTE/DVT Prophylaxis med ordered at admit?: Yes
--- NOTE | 2020-02-26 14:41 | XRAY Report ---
PROCEDURE: Chest 1 View X-Ray INDICATIONS: sob TECHNIQUE: One view of the chest was acquired. COMPARISON: 2 views of the chest dated 08/03/2017 FINDINGS: Surgical changes and devices: Patient is status post median sternotomy, valvular replacement, and sin gle lead cardiac pacemaker placement. Lungs and pleura: No pleural effusions or pneumothorax. Lungs are clear. Mediastinum: Mediastinal contours appear normal. Heart size is normal. Bones and chest wall: No suspicious bony lesions. Overlying soft tissues appear unremarkable. IMPRESSION: No acute cardiopulmonary findings. Reviewed by: Angeles Franco MD on 02/26/2020 2:40 PM PST Approved by: Angeles Franco MD on 02/26/2020 2:40 PM [facility] Station ID: [id number]
[2020-02-26] MEDS ORDERED: LORazepam 1 MG TABLET PO PRN (15:24)
[2020-02-26 15:42] LABS: DIGOXIN 1.1 ng/mL
[2020-02-26] MEDS: METOPROLOL SUCCINATE 50 MG TABLET PO SCH (16:03)
[2020-02-26] MEDS: DIGOXIN 125 MCG TABLET PO SCH (16:30)
[2020-02-26] MEDS: SODIUM CHLORIDE FLUSH 0.9% 10 ML SYRINGE IVP SCH (16:49)
[2020-02-26] MEDS: SODIUM CHLORIDE 0.9% 1,000 ML IV SCH (16:56)
[2020-02-26 17:21] LABS: ABSOLUTE RETICS # AUTO 0.13 10^6/uL (0.020-0.110); RED BLOOD COUNT 2.81 10^6/uL (4.70-6.10)
[2020-02-26 17:53] LABS: FERRITIN 21.4 ng/mL (23.9-336.2)
[2020-02-26 17:59] LABS: % IRON SATURATION 9 % (20-50); IRON 32 ug/dL (45-182); TOTAL IRON BINDING CAPACITY 356 ug/dL (250-450); TRANSFERRIN 254 mg/dL (180-329)
[2020-02-26] MEDS ORDERED: FERROUS GLUCONATE 324 MG TABLET PO SCH (19:00)
[2020-02-26] MEDS: SODIUM/POTASSIUM/MAG SULFATES 354 ML PREP KIT PO SCH (19:01)
--- NOTE | 2020-02-26 19:59 | CONSULTATION NOTE ---
Referring Provider Name of Referring Provider:: Dr. Jan Montes Consult Date: 02/27/20 Chief Complaint - Chief Complaint Chief Complaint: Melanotic stool concerning for gastrointestinal bleed History of Present Illness - Admitted From Admitted From:: Home - History Obtained From Records Reviewed: EMR History obtained from: Patient Exam Limitations: NONE - History of Present Illness HPI Comment/Other: 79-year-old man with past medical history prosthetic heart valve on Coumadin since 2003, Congestive heart failure, Hypertension, Coronary artery disease, [place], Atrial fibrillation, anemia, Sleep apnea on CPAP, Hypothyroidism, GERD, chronic vision loss, chronic hearing loss, Major depression, bipolar disease, osteomyelitis, gout, chronic back pain, who presents ER complain of dark tarry stool and weakness. Colonoscopy with the last several years for which he reports polyps. Prior upper endoscopy however no reported ulcers in the past. Does not take nonsteroidal anti-inflammatory agents regularly other than baby aspirin. Has chronic renal insufficiency. Supratherapeutic INR. Dosed vitamin K and transfused 1 unit for hemoglobin of 8. Surgical consultation called for endoscopic evaluation. History - Past Medical History Cardiovascular: reports: Congestive heart failure, Hypertension, Coronary artery disease, [place], Atrial fibrillation, Valve disorder Respiratory: reports: Sleep apnea, CPAP use Endocrine/Autoimmune: reports: HyPOthyroidism GI: reports: GERD, GI bleed, Colon polyps : reports: Incontinence, Other HEENT: reports: Chronic vision loss, Chronic hearing loss, Other Psych: reports: Depression, Bipolar disorder Musculoskeletal: reports: Osteoarthritis, Gout, Chronic back pain Derm: reports: Other MRSA Hx?: No - Past Surgical History Ortho: reports: Hip replacement, Shoulder arthroplasty, Amputation Cardiovascular: reports: Valve replacement, Pacemaker, AICD, Cardiac cat heterization, Angioplasty, Other HEENT: reports: Cataracts Derm: reports: Skin cancer surgery - Family & Social History Family History: Mother: , Father: Family History Comment/Other: Patient reported his father at age 83 because of complication from the heart failure, The same as his mother because of complication of heart failure she at the age 70. Social History Notes: Patient reported he live at [facility] With his , he denies history of cigarette smoker, alcohol or drug issue - POLST Patient has POLST: No Meds/Allgy - Home Medications Home Medications: Ambulatory Orders Medication Instructions Recorded Confirmed Aspirin Chewable [[place] 81 mg PO DAILY 07/27/13 02/26/20 Aspirin] Diazepam 5 mg PO Q8H PRN 07/27/13 02/26/20 Digoxin 125 mcg PO DAILY 07/27/13 02/26/20 Dutasteride [Avodart] 0.5 mg PO DAILY 07/27/13 02/20/20 Furosemide [Lasix] 40 mg PO DAILY 07/27/13 02/26/20 Levothyroxine [Synthroid] 75 mcg PO DAILY 07/27/13 02/26/20 Magnesium Chloride [Slo Mag] 64 mg PO BID 07/27/13 02/26/20 Metoprolol Succinate [Toprol Xl] 100 mg PO DAILY 07/27/13 02/26/20 Quetiapine Xr [Seroquel Xr] 300 mg PO DAILY PM 07/27/13 02/26/20 Sertraline HCl 100 mg PO BID 07/27/13 02/26/20 Temazepam 15 mg PO QPM PRN 07/27/13 02/26/20 Trospium Chloride [Sanctura] 60 mg PO DAILY MDD at NOON 07/27/13 02/26/20 Warfarin [Coumadin] 5 mg PO SUTUTHSA 07/27/13 02/26/20 allopurinoL [Allopurinol] 150 mg PO QPM 07/27/13 02/26/20 Cyanocobalamin/Folic Acid [Vitamin 1 tab PO DAILY 08/12/13 02/20/20 C16-Asqtf Acid Tablet] Warfarin [Coumadin] 2.5 mg PO MOWEFR 09/18/16 02/26/20 lisinopriL [Lisinopril] 5 mg PO DAILY 09/18/16 02/26/20 Cholecalciferol (Vitamin D3) 1,200 unit PO BID 09/26/16 02/20/20 [Vitamin D] Omeprazole 20 mg PO DAILY 02/26/20 02/26/20 - Allergies Allergies/Adverse Reactions: Allergies Allergy/AdvReac Type Severity Reaction Status Date / Time hydromorphone HCl * Allergy Severe Hallucinati Verified 02/26/20 11:54 [From Dilaudid] ons codeine Allergy Unknown Verified 02/26/20 11:54 duloxetine HCl * Allergy Anxiety Verified 02/26/20 11:54 [From Cymbalta] gabapentin [From Neurontin] Allergy Anxiety Verified 02/26/20 11:54 oxycodone HCl * Allergy Hallucinati Verified 02/26/20 11:54 [From OxyContin] ons Exam - Vital Signs Reviewed Vital Signs: Yes Vital Signs: Vital Signs x48h Temp Pulse Pulse Resp BP BP Pulse Ox 02/26/20 16:22 36.4 C L 71 20 111/64 02/26/20 16:00 36.4 C L 69 20 111/64 95 02/26/20 15:03 36.5 C 80 20 119/71 99 02/26/20 14:44 36.9 C 82 16 118/66 02/26/20 14:27 36.7 C 85 21 102/71 02/26/20 14:20 75 17 120/69 97 02/26/20 14:17 36.4 C L 82 10 L 125/82 H 02/26/20 14:05 83 21 90/62 02/26/20 13:00 76 19 114/69 96 02/26/20 12:30 75 20 109/66 96 02/26/20 12:00 82 15 99/69 95 - Physical Exam General Appearance: positive: No acute distress, Alert, Mild distress Eyes Bilateral: positive: Normal inspection, PERRL, EOMI ENT: positive: ENT inspection nml Neck: positive: Nml inspection Respiratory: positive: Chest non-tender, No respiratory distress, Breath sounds nml. negative: Wheezes, Rales, Rhonchi Cardiovascular: positive: Regular rate & rhythm Abdomen: positive: Non-tender, No distention. negative: Tenderness, Guarding, Rebound Rectal: positive: Other (Deferred pending colonoscopy) Skin: positive: Color nml Extremities: positive: Non-tender, Full ROM, Nml appearance Neurologic/Psychiatric: positive: Oriented x3, CN's nml (2-12), Motor nml, Sensation nml, Mood/affect nml Conclusion and Plan - Lab Results Laboratory Results 02/26/20 12:28: Blood Type O POSITIVE, Antibody Screen NEGATIVE, Crossmatch IS Only See Detail 02/26/20 12:23: Nasal Adenovirus (PCR) NOT DETECTED, Nasal B. parapertussis DNA (PCR) NOT DETECTED, Nasal Coronavir 229E PCR NOT DETECTED, Nasal Coronavir HKU1 PCR NOT DETECTED, Nasal Coronavir NL63 PCR NOT DETECTED, Nasal Coronavir OC43 PCR NOT DETECTED, Nasal Enterovir/Rhinovir PCR NOT DETECTED, Nasal Influenza B PCR NOT DETECTED, Nasal Influenza A PCR NOT DETECTED, Nasal Parainfluen 1 PCR NOT DETECTED, Nasal Parainfluen 2 PCR NOT DETECTED, Nasal Parainfluen 3 PCR NOT DETECTED, Nasal Parainfluen 4 PCR NOT DETECTED, Nasal RSV (PCR) NOT DETECTED, Nasal B.pertussis DNA PCR NOT DETECTED, Nasal C.pneumoniae (PCR) NOT DETECTED, [place] Human Metapneumo PCR NOT DETECTED, Nasal M.pneumoniae (PCR) NOT DETECTED, Nasal SARS-CoV-2 (PCR) NOT DETECTED 02/26/20 12:18: Lactate Dehydrogenase 119 02/26/20 12:18: Ferritin 21.4 L, Vitamin B12 345 02/26/20 12:18: Iron 32 L, TIBC 356, % Saturation 9 L, Transferrin 254 02/26/20 12:18: RBC 2.81 L, Reticulocyte % (Auto) 4.62 H, Absolute Retic 0.130 H 02/26/20 12:18: Last Dose Date , Last Dose Time 142, Digoxin 1.1 02/26/20 12:18: Sodium 134 L, Potassium 4.4, Chloride 103, Carbon Dioxide 22, Anion Gap 9.0, BUN 68 H, Creatinine 2.1 H, Estimated GFR (MDRD) 31 L, Glucose 130 H, Calcium 8.6, Total Bilirubin 0.3, AST 22, ALT 18, Alkaline Phosphatase 62, Total Protein 7.4, Albumin 3.8, Globulin 3.6, Albumin/Globulin Ratio 1.1, Lipase 26 02/26/20 12:18: PT 50.1 H, INR 5.0 H*, APTT 52.4 H 02/26/20 12:18: WBC 3.6 L, RBC 2.80 L, Hgb 8.8 L, Hct 27.4 L, MCV 97.9 H, MCH 31.4 H, MCHC 32.1, RDW 14.4, Plt Count 136, MPV 9.8, Neut # (Auto) 2.2, Lymph # (Auto) 0.9 L, [place] # (Auto) 0.4, Eos # (Auto) 0.1, Baso # (Auto) 0.0, Absolute Nucleated RBC 0.00, Nucleated RBC % 0.0 - Diagnosis Diagnosis: 1. Coronary artery disease. 2. Cardiac vascular disease. 3. Systemic anticoagulation. 4. Gastrointestinal bleed. 5. Acute blood loss anemia - Plan Plan: 1. Care per hospitalist service 2. Trend H&H and transfuse appropriately given the patient's history of cardiac disease 3. Telemetry and close hemodynamic monitoring 4. Plan upper endoscopy to evaluate source, which is most likely given the patient's presenting uremia. Will proceed with colonoscopy as well. 5. Aggressive resuscitation. Bowel rest and bowel prep. 6. As is always the case, diagnostic endoscopy with potential for therapeutic interventions. Given limitations, surgical interventions and/or transfer for advanced gastrointestinal interventions and/or interventional radiographic interventions remain part of this complex algorithm. 7. Bowel rest and bowel prep in anticipation of colonoscopy 8. PPI infusion and consider Carafate pending results Please note that voice recognition software was used to transcribe this note and inadvertent errors might persist in spite of review and editing. I am obliged to you for your attention. I am thankful to you for allowing me to participate with you in this care of this patient.
[2020-02-26] MEDS ORDERED: SERTRALINE HCL 100 MG PO SCH (21:00)
[2020-02-26 21:06] LABS: HGB - HEMOGLOBIN 9.8 g/dL (14.0-18.0)
[2020-02-26] MEDS: QUEtiapine 100 MG TABLET PO SCH (21:13)
[2020-02-26] MEDS: SERTRALINE 50 MG TABLET PO SCH (21:13)
[2020-02-26] MEDS: PANTOPRAZOLE 40 MG VIAL IVP SCH (21:14)
[2020-02-27] MEDS: SODIUM CHLORIDE FLUSH 0.9% 10 ML SYRINGE IVP SCH ×3 (00:12→17:33)
[2020-02-27] MEDS: SODIUM CHLORIDE 0.9% 1,000 ML IV SCH (02:49)
[2020-02-27] MEDS: SODIUM/POTASSIUM/MAG SULFATES 354 ML PREP KIT PO SCH (04:12)
[2020-02-27 04:46] LABS: BASOPHILS % (AUTO) 0.3 %; EOSINOPHILS # (AUTO) 0.1 10^3/uL (0.0-0.7); EOSINOPHILS % (AUTO) 2.9 %; HGB - HEMOGLOBIN 9.2 g/dL (14.0-18.0); LYMPHOCYTES # (AUTO) 0.8 10^3/uL (1.5-3.5); LYMPHOCYTES % (AUTO) 24.6 %; MEAN CORPUSCULAR HEMOGLOBIN 30.3 pg (27.0-31.0); MEAN CORPUSCULAR HGB CONC 32.4 g/dL (32.0-36.0); MEAN CORPUSCULAR VOLUME 93.4 fL (80.0-94.0); MEAN PLATELET VOLUME 9.5 fL (7.4-11.4); MONOCYTES # (AUTO) 0.3 10^3/uL (0.0-1.0); MONOCYTES % (AUTO) 10.5 %; NEUTROPHILS # (AUTO) 1.9 10^3/uL (1.5-6.6); NEUTROPHILS % (AUTO) 61.1 %; PLT - PLATELET COUNT 128 10^3/uL (130-450); RED BLOOD COUNT 3.04 10^6/uL (4.70-6.10); RED CELL DISTRIBUTION WIDTH 18.1 % (12.0-15.0); WHITE BLOOD COUNT 3.1 x10^3/uL (4.8-10.8)
[2020-02-27 05:04] LABS: CALCIUM 8.3 mg/dL (8.5-10.3); CREATININE 1.8 mg/dL (0.6-1.2); INR 2.8 (0.8-1.2); MAGNESIUM 2.2 mg/dL (1.7-2.8); PT - PROTHROMBIN TIME 29.1 secs (9.9-12.6)
[2020-02-27] MEDS: LEVOTHYROXINE 75 MCG TABLET PO SCH (06:13)
[2020-02-27] MEDS: SERTRALINE 50 MG TABLET PO SCH ×2 (07:55→20:45)
[2020-02-27] MEDS: DIGOXIN 125 MCG TABLET PO SCH (07:56)
[2020-02-27] MEDS: PANTOPRAZOLE 40 MG VIAL IVP SCH ×2 (07:56→20:45)
[2020-02-27] MEDS: FERROUS SULFATE 325 MG TABLET PO SCH (07:56)
[2020-02-27] MEDS: METOPROLOL SUCCINATE 50 MG TABLET PO SCH (07:56)
[2020-02-27] MEDS ORDERED: DIGOXIN 125 MCG TABLET PO SCH (09:00)
--- NOTE | 2020-02-27 11:15 | PROVIDER PROGRESS NOTE ---
Subjective - Prog Note Date Prog Note Date: 02/27/20 - Subjective Subjective: He has not noticed any more bleeding. Nursing hasn't noticed any blood in his stool. He reports no chest pain or dyspnea. 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 He has been on Coumadin since it was placed. He is upset this morning and was thinking about going home and not proceeding with the procedure. He is agreeable to staying now. Current Medications - Current Medications Current Medications: Active Medications Acetaminophen (Acetaminophen 325 Mg Tablet) 650 mg PO Q4HR PRN PRN Reason: Pain 1 to 4 Last Admin: 02/27/20 09:41 Dose: 650 mg Documented by: Diazepam (Diazepam 5 Mg Tablet) 5 mg PO Q8H PRN PRN Reason: Spasms Last Admin: 02/27/20 09:41 Dose: 5 mg Documented by: Digoxin (Digoxin 125 Mcg Tablet) 125 mcg PO DAILY [facility] Last Admin: 02/27/20 07:56 Dose: 125 mcg Documented by: Ferrous Sulfate (Ferrous Sulfate 325 Mg Tablet) 325 mg PO DAILYWM [facility] Last Admin: 02/27/20 07:56 Dose: 325 mg Documented by: Levothyroxine Sodium (Levothyroxine 75 Mcg Tablet) 75 mcg PO QDAC [facility] Last Admin: 02/27/20 06:13 Dose: 75 mcg Documented by: Lorazepam (Lorazepam 1 Mg Tablet) 1 mg PO HS PRN PRN Reason: Insomnia Last Admin: 02/27/20 09:41 Dose: 1 mg Documented by: Metoprolol Succinate (Metoprolol Succinate 50 Mg Tablet) 100 mg PO DAILY [facility] Last Admin: 02/27/20 07:56 Dose: 100 mg Documented by: Ondansetron HCl (Ondansetron 4 Mg/2 Ml Vial) 4 mg IVP Q6HR PRN PRN Reason: Nausea / Vomiting Pantoprazole Sodium (Pantoprazole 40 Mg Vial) 40 mg IVP BID [facility] Last Admin: 02/27/20 07:56 Dose: 40 mg Documented by: Quetiapine Fumarate (Quetiapine 100 Mg Tablet) 300 mg PO QPM [facility] Last Admin: 02/26/20 21:13 Dose: 300 mg Documented by: Sertraline HCl (Sertraline 50 Mg Tablet) 100 mg PO BID [facility] Last Admin: 02/27/20 07:55 Dose: 100 mg Documented by: Sodium Chloride (Sodium Chloride Flush 0.9% 10 Ml Syringe) 10 ml IVP PRN PRN PRN Reason: NEEDED PER PROVIDER ORDERS Sodium Chloride (Sodium Chloride Flush 0.9% 10 Ml Syringe) 10 ml IVP 0100,0900,1700 ANGELIQUE Last Admin: 02/27/20 07:57 Dose: 10 ml Documented by: Aspirin Chewable [[place] Aspirin] 81 mg PO DAILY 07/27/13 Diazepam 5 mg PO Q8H PRN 07/27/13 Digoxin 125 mcg PO DAILY 07/27/13 Dutasteride [Avodart] 0.5 mg PO DAILY 07/27/13 Furosemide [Lasix] 40 mg PO DAILY 07/27/13 Levothyroxine [Synthroid] 75 mcg PO DAILY 07/27/13 Magnesium Chloride [Slo Mag] 64 mg PO BID 07/27/13 Metoprolol Succinate [Toprol Xl] 100 mg PO DAILY 07/27/13 Quetiapine Xr [Seroquel Xr] 300 mg PO DAILY PM 07/27/13 Sertraline HCl 100 mg PO BID 07/27/13 Temazepam 15 mg PO QPM PRN 07/27/13 Trospium Chloride [Sanctura] 60 mg PO DAILY MDD at NOON 07/27/13 Warfarin [Coumadin] 5 mg PO SUTUTHSA 07/27/13 allopurinoL [Allopurinol] 150 mg PO QPM 07/27/13 Cyanocobalamin/Folic Acid [Vitamin U84-Zbypl Acid Tablet] 1 tab PO DAILY 08/12/13 Warfarin [Coumadin] 2.5 mg PO MOWEFR 09/18/16 lisinopriL [Lisinopril] 5 mg PO DAILY 09/18/16 Cholecalciferol (Vitamin D3) [Vitamin D] 1,200 unit PO BID 09/26/16 Omeprazole 20 mg PO DAILY 02/26/20 Objective - Vital Signs/Intake & Output Reviewed Vital Signs: Yes Vital Signs: Vital Signs x48h Temp Pulse Resp BP Pulse Ox 02/27/20 08:00 36.7 C 77 16 119/73 95 02/27/20 04:12 36.5 C 81 18 114/61 93 Intake & Output: Intake & Output 02/24/20 02/25/20 02/26/20 02/27/20 23:59 23:59 23:59 23:59 Intake Total 1347 2038.333 Output Total 1800 650 Balance -453 1388.333 - Objective General Appearance: positive: No acute distress, Alert Eyes Bilateral: positive: Normal inspection, Conjunctivae nml ENT: positive: ENT inspection nml Neck: positive: Nml inspection Respiratory: positive: No respiratory distress. negative: Wheezes, Rales Cardiovascular: positive: Other (Mechanical valve click noted.). negative: Tachycardia, Bradycardia Abdomen: positive: Non-tender, No distention. negative: Tenderness Skin: positive: Warm, Dry Extremities: positive: No pedal edema - Lab Results Fish Bones: 02/27/20 04:20 02/27/20 04:20 Other Labs: Lab Results x24hrs 02/27/20 02/27/20 02/27/20 Range/Units 04:20 04:20 04:20 WBC (4.8-10.8) x10^3/uL RBC (4.70-6.10) 10^6/uL Hgb (14.0-18.0) g/dL Hct (42.0-52.0) % MCV (80.0-94.0) fL MCH (27.0-31.0) pg MCHC (32.0-36.0) g/dL RDW (12.0-15.0) % Plt Count (130-450) 10^3/uL MPV (7.4-11.4) fL Reticulocyte % (Auto) (0.5-2.3) % Neut # (Auto) (1.5-6.6) 10^3/uL Lymph # (Auto) (1.5-3.5) 10^3/uL [place] # (Auto) (0.0-1.0) 10^3/uL Eos # (Auto) (0.0-0.7) 10^3/uL Baso # (Auto) (0.0-0.1) 10^3/uL Absolute Nucleated RBC x10^3/uL Nucleated RBC % /100WBC Absolute Retic (0.020-0.110) 10^6/uL PT 29.1 H (9.9-12.6) secs INR 2.8 H (0.8-1.2) APTT (24.9-33.3) secs Sodium 138 (135-145) mmol/L Potassium 4.6 (3.5-5.0) mmol/L Chloride 106 (101-111) mmol/L Carbon Dioxide 23 (21-32) mmol/L Anion Gap 9.0 (6-13) BUN 55 H (6-20) mg/dL Creatinine 1.8 H (0.6-1.2) mg/dL Estimated GFR (MDRD) 36 L (>89) Glucose 103 H (70-100) mg/dL Calcium 8.3 L (8.5-10.3) mg/dL Magnesium 2.2 (1.7-2.8) mg/dL Iron (45-182) ug/dL TIBC (250-450) ug/dL % Saturation (20-50) % Transferrin (180-329) mg/dL Ferritin (23.9-336.2) ng/mL Total Bilirubin (0.2-1.0) mg/dL AST (10-42) IU/L ALT (10-60) IU/L Alkaline Phosphatase (42-121) IU/L Lactate Dehydrogenase (91-225) IU/L Total Protein (6.7-8.2) g/dL Albumin (3.2-5.5) g/dL Globulin (2.1-4.2) g/dL Albumin/Globulin Ratio (1.0-2.2) Lipase (22-51) U/L Vitamin B12 (180-914) pg/mL TSH 5.71 H (0.34-5.60) uIU/mL Nasal Adenovirus (PCR) Nasal B. parapertussis DNA (PCR) Nasal Coronavir 229E PCR Nasal Coronavir HKU1 PCR Nasal Coronavir NL63 PCR Nasal Coronavir OC43 PCR Nasal Enterovir/Rhinovir PCR Nasal Influenza B PCR Nasal Influenza A PCR Nasal Parainfluen 1 PCR Nasal Parainfluen 2 PCR Nasal Parainfluen 3 PCR Nasal Parainfluen 4 PCR Nasal RSV (PCR) Nasal B.pertussis DNA PCR Nasal C.pneumoniae (PCR) [place] Human Metapneumo PCR Nasal M.pneumoniae (PCR) Nasal SARS-CoV-2 (PCR) Last Dose Date Last Dose Time Digoxin ng/mL Blood Type Antibody Screen Crossmatch IS Only 02/27/20 02/26/20 02/26/20 Range/Units 04:20 21:02 12:28 WBC 3.1 L (4.8-10.8) x10^3/uL RBC 3.04 L (4.70-6.10) 10^6/uL Hgb 9.2 L 9.8 L (14.0-18.0) g/dL Hct 28.4 L 29.6 L (42.0-52.0) % MCV 93.4 (80.0-94.0) fL MCH 30.3 (27.0-31.0) pg MCHC 32.4 (32.0-36.0) g/dL RDW 18.1 H (12.0-15.0) % Plt Count 128 L (130-450) 10^3/uL MPV 9.5 (7.4-11.4) fL Reticulocyte % (Auto) (0.5-2.3) % Neut # (Auto) 1.9 (1.5-6.6) 10^3/uL Lymph # (Auto) 0.8 L (1.5-3.5) 10^3/uL [place] # (Auto) 0.3 (0.0-1.0) 10^3/uL Eos # (Auto) 0.1 (0.0-0.7) 10^3/uL Baso # (Auto) 0.0 (0.0-0.1) 10^3/uL Absolute Nucleated RBC 0.00 x10^3/uL Nucleated RBC % 0.0 /100WBC Absolute Retic (0.020-0.110) 10^6/uL PT (9.9-12.6) secs INR (0.8-1.2) APTT (24.9-33.3) secs Sodium (135-145) mmol/L Potassium (3.5-5.0) mmol/L Chloride (101-111) mmol/L Carbon Dioxide (21-32) mmol/L Anion Gap (6-13) BUN (6-20) mg/dL Creatinine (0.6-1.2) mg/dL Estimated GFR (MDRD) (>89) Glucose (70-100) mg/dL Calcium (8.5-10.3) mg/dL Magnesium (1.7-2.8) mg/dL Iron (45-182) ug/dL TIBC (250-450) ug/dL % Saturation (20-50) % Transferrin (180-329) mg/dL Ferritin (23.9-336.2) ng/mL Total Bilirubin (0.2-1.0) mg/dL AST (10-42) IU/L ALT (10-60) IU/L Alkaline Phosphatase (42-121) IU/L Lactate Dehydrogenase (91-225) IU/L Total Protein (6.7-8.2) g/dL Albumin (3.2-5.5) g/dL Globulin (2.1-4.2) g/dL Albumin/Globulin Ratio (1.0-2.2) Lipase (22-51) U/L Vitamin B12 (180-914) pg/mL TSH (0.34-5.60) uIU/mL Nasal Adenovirus (PCR) Nasal B. parapertussis DNA (PCR) Nasal Coronavir 229E PCR Nasal Coronavir HKU1 PCR Nasal Coronavir NL63 PCR Nasal Coronavir OC43 PCR Nasal Enterovir/Rhinovir PCR Nasal Influenza B PCR Nasal Influenza A PCR Nasal Parainfluen 1 PCR Nasal Parainfluen 2 PCR Nasal Parainfluen 3 PCR Nasal Parainfluen 4 PCR Nasal RSV (PCR) Nasal B.pertussis DNA PCR Nasal C.pneumoniae (PCR) [place] Human Metapneumo PCR Nasal M.pneumoniae (PCR) Nasal SARS-CoV-2 (PCR) Last Dose Date Last Dose Time Digoxin ng/mL Blood Type O POSITIVE Antibody Screen NEGATIVE Crossmatch IS Only See Detail 02/26/20 02/26/20 02/26/20 Range/Units 12:23 12:18 12:18 WBC (4.8-10.8) x10^3/uL RBC (4.70-6.10) 10^6/uL Hgb (14.0-18.0) g/dL Hct (42.0-52.0) % MCV (80.0-94.0) fL MCH (27.0-31.0) pg MCHC (32.0-36.0) g/dL RDW (12.0-15.0) % Plt Count (130-450) 10^3/uL MPV (7.4-11.4) fL Reticulocyte % (Auto) (0.5-2.3) % Neut # (Auto) (1.5-6.6) 10^3/uL Lymph # (Auto) (1.5-3.5) 10^3/uL [place] # (Auto) (0.0-1.0) 10^3/uL Eos # (Auto) (0.0-0.7) 10^3/uL Baso # (Auto) (0.0-0.1) 10^3/uL Absolute Nucleated RBC x10^3/uL Nucleated RBC % /100WBC Absolute Retic (0.020-0.110) 10^6/uL PT (9.9-12.6) secs INR (0.8-1.2) APTT (24.9-33.3) secs Sodium (135-145) mmol/L Potassium (3.5-5.0) mmol/L Chloride (101-111) mmol/L Carbon Dioxide (21-32) mmol/L Anion Gap (6-13) BUN (6-20) mg/dL Creatinine (0.6-1.2) mg/dL Estimated GFR (MDRD) (>89) Glucose (70-100) mg/dL Calcium (8.5-10.3) mg/dL Magnesium (1.7-2.8) mg/dL Iron (45-182) ug/dL TIBC (250-450) ug/dL % Saturation (20-50) % Transferrin (180-329) mg/dL Ferritin 21.4 L (23.9-336.2) ng/mL Total Bilirubin (0.2-1.0) mg/dL AST (10-42) IU/L ALT (10-60) IU/L Alkaline Phosphatase (42-121) IU/L Lactate Dehydrogenase 119 (91-225) IU/L Total Protein (6.7-8.2) g/dL Albumin (3.2-5.5) g/dL Globulin (2.1-4.2) g/dL Albumin/Globulin Ratio (1.0-2.2) Lipase (22-51) U/L Vitamin B12 345 (180-914) pg/mL TSH (0.34-5.60) uIU/mL Nasal Adenovirus (PCR) NOT DETECTED Nasal B. parapertussis DNA (PCR) NOT DETECTED Nasal Coronavir 229E PCR NOT DETECTED Nasal Coronavir HKU1 PCR NOT DETECTED Nasal Coronavir NL63 PCR NOT DETECTED Nasal Coronavir OC43 PCR NOT DETECTED Nasal Enterovir/Rhinovir PCR NOT DETECTED Nasal Influenza B PCR NOT DETECTED Nasal Influenza A PCR NOT DETECTED Nasal Parainfluen 1 PCR NOT DETECTED Nasal Parainfluen 2 PCR NOT DETECTED Nasal Parainfluen 3 PCR NOT DETECTED Nasal Parainfluen 4 PCR NOT DETECTED Nasal RSV (PCR) NOT DETECTED Nasal B.pertussis DNA PCR NOT DETECTED Nasal C.pneumoniae (PCR) NOT DETECTED [place] Human Metapneumo PCR NOT DETECTED Nasal M.pneumoniae (PCR) NOT DETECTED Nasal SARS-CoV-2 (PCR) NOT DETECTED Last Dose Date Last Dose Time Digoxin ng/mL Blood Type Antibody Screen Crossmatch IS Only 02/26/20 02/26/20 02/26/20 Range/Units 12:18 12:18 12:18 WBC (4.8-10.8) x10^3/uL RBC 2.81 L (4.70-6.10) 10^6/uL Hgb (14.0-18.0) g/dL Hct (42.0-52.0) % MCV (80.0-94.0) fL MCH (27.0-31.0) pg MCHC (32.0-36.0) g/dL RDW (12.0-15.0) % Plt Count (130-450) 10^3/uL MPV (7.4-11.4) fL Reticulocyte % (Auto) 4.62 H (0.5-2.3) % Neut # (Auto) (1.5-6.6) 10^3/uL Lymph # (Auto) (1.5-3.5) 10^3/uL [place] # (Auto) (0.0-1.0) 10^3/uL Eos # (Auto) (0.0-0.7) 10^3/uL Baso # (Auto) (0.0-0.1) 10^3/uL Absolute Nucleated RBC x10^3/uL Nucleated RBC % /100WBC Absolute Retic 0.130 H (0.020-0.110) 10^6/uL PT (9.9-12.6) secs INR (0.8-1.2) APTT (24.9-33.3) secs Sodium (135-145) mmol/L Potassium (3.5-5.0) mmol/L Chloride (101-111) mmol/L Carbon Dioxide (21-32) mmol/L Anion Gap (6-13) BUN (6-20) mg/dL Creatinine (0.6-1.2) mg/dL Estimated GFR (MDRD) (>89) Glucose (70-100) mg/dL Calcium (8.5-10.3) mg/dL Magnesium (1.7-2.8) mg/dL Iron 32 L (45-182) ug/dL TIBC 356 (250-450) ug/dL % Saturation 9 L (20-50) % Transferrin 254 (180-329) mg/dL Ferritin (23.9-336.2) ng/mL Total Bilirubin (0.2-1.0) mg/dL AST (10-42) IU/L ALT (10-60) IU/L Alkaline Phosphatase (42-121) IU/L Lactate Dehydrogenase (91-225) IU/L Total Protein (6.7-8.2) g/dL Albumin (3.2-5.5) g/dL Globulin (2.1-4.2) g/dL Albumin/Globulin Ratio (1.0-2.2) Lipase (22-51) U/L Vitamin B12 (180-914) pg/mL TSH (0.34-5.60) uIU/mL Nasal Adenovirus (PCR) Nasal B. parapertussis DNA (PCR) Nasal Coronavir 229E PCR Nasal Coronavir HKU1 PCR Nasal Coronavir NL63 PCR Nasal Coronavir OC43 PCR Nasal Enterovir/Rhinovir PCR Nasal Influenza B PCR Nasal Influenza A PCR Nasal Parainfluen 1 PCR Nasal Parainfluen 2 PCR Nasal Parainfluen 3 PCR Nasal Parainfluen 4 PCR Nasal RSV (PCR) Nasal B.pertussis DNA PCR Nasal C.pneumoniae (PCR) [place] Human Metapneumo PCR Nasal M.pneumoniae (PCR) Nasal SARS-CoV-2 (PCR) Last Dose Date Last Dose Time 1425 Digoxin 1.1 ng/mL Blood Type Antibody Screen Crossmatch IS Only 02/26/20 02/26/20 02/26/20 Range/Units 12:18 12:18 12:18 WBC 3.6 L (4.8-10.8) x10^3/uL RBC 2.80 L (4.70-6.10) 10^6/uL Hgb 8.8 L (14.0-18.0) g/dL Hct 27.4 L (42.0-52.0) % MCV 97.9 H (80.0-94.0) fL MCH 31.4 H (27.0-31.0) pg MCHC 32.1 (32.0-36.0) g/dL RDW 14.4 (12.0-15.0) % Plt Count 136 (130-450) 10^3/uL MPV 9.8 (7.4-11.4) fL Reticulocyte % (Auto) (0.5-2.3) % Neut # (Auto) 2.2 (1.5-6.6) 10^3/uL Lymph # (Auto) 0.9 L (1.5-3.5) 10^3/uL [place] # (Auto) 0.4 (0.0-1.0) 10^3/uL Eos # (Auto) 0.1 (0.0-0.7) 10^3/uL Baso # (Auto) 0.0 (0.0-0.1) 10^3/uL Absolute Nucleated RBC 0.00 x10^3/uL Nucleated RBC % 0.0 /100WBC Absolute Retic (0.020-0.110) 10^6/uL PT 50.1 H (9.9-12.6) secs INR 5.0 H* (0.8-1.2) APTT 52.4 H (24.9-33.3) secs Sodium 134 L (135-145) mmol/L Potassium 4.4 (3.5-5.0) mmol/L Chloride 103 (101-111) mmol/L Carbon Dioxide 22 (21-32) mmol/L Anion Gap 9.0 (6-13) BUN 68 H (6-20) mg/dL Creatinine 2.1 H (0.6-1.2) mg/dL Estimated GFR (MDRD) 31 L (>89) Glucose 130 H (70-100) mg/dL Calcium 8.6 (8.5-10.3) mg/dL Magnesium (1.7-2.8) mg/dL Iron (45-182) ug/dL TIBC (250-450) ug/dL % Saturation (20-50) % Transferrin (180-329) mg/dL Ferritin (23.9-336.2) ng/mL Total Bilirubin 0.3 (0.2-1.0) mg/dL AST 22 (10-42) IU/L ALT 18 (10-60) IU/L Alkaline Phosphatase 62 (42-121) IU/L Lactate Dehydrogenase (91-225) IU/L Total Protein 7.4 (6.7-8.2) g/dL Albumin 3.8 (3.2-5.5) g/dL Globulin 3.6 (2.1-4.2) g/dL Albumin/Globulin Ratio 1.1 (1.0-2.2) Lipase 26 (22-51) U/L Vitamin B12 (180-914) pg/mL TSH (0.34-5.60) uIU/mL Nasal Adenovirus (PCR) Nasal B. parapertussis DNA (PCR) Nasal Coronavir 229E PCR Nasal Coronavir HKU1 PCR Nasal Coronavir NL63 PCR Nasal Coronavir OC43 PCR Nasal Enterovir/Rhinovir PCR Nasal Influenza B PCR Nasal Influenza A PCR Nasal Parainfluen 1 PCR Nasal Parainfluen 2 PCR Nasal Parainfluen 3 PCR Nasal Parainfluen 4 PCR Nasal RSV (PCR) Nasal B.pertussis DNA PCR Nasal C.pneumoniae (PCR) [place] Human Metapneumo PCR Nasal M.pneumoniae (PCR) Nasal SARS-CoV-2 (PCR) Last Dose Date Last Dose Time Digoxin ng/mL Blood Type Antibody Screen Crossmatch IS Only ABX Reporting Has patient been on IV antibiotics over the past 48 hours?: No Assessment/Plan - Problem List (1) Upper GI bleed Impression: He presents with dark tarry stools and a supratherapeutic INR. He was also found to be anemic and was given 1 unit of packed red blood cell yesterday in the emergency department. His hemoglobin did initially respond appropriately but has been trending down. This could also be dilutional given the IV fluids he has received. His bleeding appears to have subsided but given his history of dark tarry stools and the anemia, we will plan to proceed with endoscopy and colonoscopy today with general surgery. We will continue him on Protonix IV. He is n.p.o. for the scopes. INR still elevated at 2.8. We will plan to administer FFP prior to endoscopy. 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 He will also need to be monitored after for further bleeding. Continue to monitor hemoglobin every 8 hours. (2) Acute blood loss anemia Impression: This is secondary to the upper GI bleed. This is acute on chronic anemia as well given his history of CKD. Iron studies were suggestive of iron deficiency anemia. We have started him on oral iron supplementation. His hemoglobin continues to decrease as mentioned above. Plan is for endoscopy today. Check hemoglobin every 8 hours. Transfuse as needed. (3) Supratherapeutic INR Impression: His INR was supratherapeutic on admission at 5. He received vitamin K with a decrease of his INR to 2.8. He will require FFP prior to endoscopy. It is unclear why his INR was supratherapeutic. Does not recall what dose he is on and there appears to be no changes to his medications. He will need to be bridged after given his history of prosthetic mitral valve. (4) A-fib Impression: Appears be chronic atrial relation. He is currently paced. We will continue his home Toprol and digoxin. (5) [id number]-[id number] kidney injury Impression: He has chronic kidney disease with a baseline creatinine of approximately 1.8. His renal function is back to baseline. We will monitor his renal function closely. (6) History of prosthetic heart valve Impression: He does have a history of a bioprosthetic mitral valve. This is reportedly a [place] mitral valve and there is evidence of mechanical click on exam. This is presumed to be a mechanical mitral valve and so he will need bridging with heparin after endoscopy to prevent thrombosis. If his hemoglobin is stable post EGD without evidence of bleeding, he may be discharged on Lovenox with a bridge to Coumadin. (7) Hypothyroidism Impression: Stable. Continue Synthroid. (8) Bipolar 1 disorder Impression: Was upset this morning and was thinking about leaving AGAINST MEDICAL ADVICE. He is now cooperative and is agreeable to proceeding with EGD. We will continue his home Seroquel and sertraline. We will also continue with diazepam as needed as family states that helps with his mood at home.
--- NOTE | 2020-02-27 13:44 | ANESTHESIA ---
Pre-Anesthesia VS, & Labs - Diagnosis Diagnosis 1. Coronary artery disease 2. Cardiac vascular disease 3. Systemic anticoagulation 4. Gastrointestinal bleed 5. Acute blood loss anemia - Procedure EGD and colonoscopy Vital Signs: Temp Pulse Resp BP Pulse Ox 36.7 C 77 16 119/73 95 02/27/20 08:00 02/27/20 08:00 02/27/20 08:00 02/27/20 08:00 02/27/20 08:00 Height: 5 ft 8 in Weight (kg): 95 kg Body Mass Index: 31.8 BMI Classification: Obese - NPO >8 hours - Lab Results Current Lab Results: Laboratory Tests 02/27/20 04:20: PT 29.1 H, INR 2.8 H 02/27/20 04:20: TSH 5.71 H 02/27/20 04:20: Sodium 138, Potassium 4.6, Chloride 106, Carbon Dioxide 23, Anion Gap 9.0, BUN 55 H, Creatinine 1.8 H, Estimated GFR (MDRD) 36 L, Glucose 103 H, Calcium 8.3 L, Magnesium 2.2 02/27/20 04:20: WBC 3.1 L, RBC 3.04 L, Hgb 9.2 L, Hct 28.4 L, MCV 93.4, MCH 30.3, MCHC 32.4, RDW 18.1 H, Plt Count 128 L, MPV 9.5, Neut # (Auto) 1.9, Lymph # (Auto) 0.8 L, Woodruff # (Auto) 0.3, Eos # (Auto) 0.1, Baso # (Auto) 0.0, Absolute Nucleated RBC 0.00, Nucleated RBC % 0.0 02/26/20 21:02: Hgb 9.8 L, Hct 29.6 L 02/26/20 12:28: Blood Type O POSITIVE, Antibody Screen NEGATIVE, Crossmatch IS Only See Detail 02/26/20 12:18: Lactate Dehydrogenase 119 02/26/20 12:18: Ferritin 21.4 L, Vitamin B12 345 02/26/20 12:18: Iron 32 L, TIBC 356, % Saturation 9 L, Transferrin 254 02/26/20 12:18: RBC 2.81 L, Reticulocyte % (Auto) 4.62 H, Absolute Retic 0.130 H 02/26/20 12:18: Last Dose Date [id number], Last Dose Time 142, Digoxin 1.1 02/26/20 12:18: Sodium 134 L, Potassium 4.4, Chloride 103, Carbon Dioxide 22, Anion Gap 9.0, BUN 68 H, Creatinine 2.1 H, Estimated GFR (MDRD) 31 L, Glucose 130 H, Calcium 8.6, Total Bilirubin 0.3, AST 22, ALT 18, Alkaline Phosphatase 62, Total Protein 7.4, Albumin 3.8, Globulin 3.6, Albumin/Globulin Ratio 1.1, Lipase 26 02/26/20 12:18: PT 50.1 H, INR 5.0 H*, APTT 52.4 H 02/26/20 12:18: WBC 3.6 L, RBC 2.80 L, Hgb 8.8 L, Hct 27.4 L, MCV 97.9 H, MCH 31.4 H, MCHC 32.1, RDW 14.4, Plt Count 136, MPV 9.8, Neut # (Auto) 2.2, Lymph # (Auto) 0.9 L, Woodruff # (Auto) 0.4, Eos # (Auto) 0.1, Baso # (Auto) 0.0, Absolute Nucleated RBC 0.00, Nucleated RBC % 0.0 Lab results reviewed: Yes Fish Bones: 02/27/20 04:20 02/27/20 04:20 Home Medications and Allergies Home Medications: Ambulatory Orders Omeprazole 20 mg PO DAILY 02/26/20 Active Medications Acetaminophen (Acetaminophen 325 Mg Tablet) 650 mg PO Q4HR PRN PRN Reason: Pain 1 to 4 Last Admin: 02/27/20 09:41 Dose: 650 mg Documented by: Diazepam (Diazepam 5 Mg Tablet) 5 mg PO Q8H PRN PRN Reason: Spasms Last Admin: 02/27/20 09:41 Dose: 5 mg Documented by: Digoxin (Digoxin 125 Mcg Tablet) 125 mcg PO DAILY [facility] Last Admin: 02/27/20 07:56 Dose: 125 mcg Documented by: Ferrous Sulfate (Ferrous Sulfate 325 Mg Tablet) 325 mg PO DAILYWM [facility] Last Admin: 02/27/20 07:56 Dose: 325 mg Documented by: Levothyroxine Sodium (Levothyroxine 75 Mcg Tablet) 75 mcg PO QDAC [facility] Last Admin: 02/27/20 06:13 Dose: 75 mcg Documented by: Lorazepam (Lorazepam 1 Mg Tablet) 1 mg PO HS PRN PRN Reason: Insomnia Last Admin: 02/27/20 09:41 Dose: 1 mg Documented by: Metoprolol Succinate (Metoprolol Succinate 50 Mg Tablet) 100 mg PO DAILY [facility] Last Admin: 02/27/20 07:56 Dose: 100 mg Documented by: Ondansetron HCl (Ondansetron 4 Mg/2 Ml Vial) 4 mg IVP Q6HR PRN PRN Reason: Nausea / Vomiting Pantoprazole Sodium (Pantoprazole 40 Mg Vial) 40 mg IVP BID [facility] Last Admin: 02/27/20 07:56 Dose: 40 mg Documented by: Quetiapine Fumarate (Quetiapine 100 Mg Tablet) 300 mg PO QPM [facility] Last Admin: 02/26/20 21:13 Dose: 300 mg Documented by: Sertraline HCl (Sertraline 50 Mg Tablet) 100 mg PO BID [facility] Last Admin: 02/27/20 07:55 Dose: 100 mg Documented by: Sodium Chloride (Sodium Chloride Flush 0.9% 10 Ml Syringe) 10 ml IVP PRN PRN PRN Reason: NEEDED PER PROVIDER ORDERS Sodium Chloride (Sodium Chloride Flush 0.9% 10 Ml Syringe) 10 ml IVP 0100,0900,1700 [facility] Last Admin: 02/27/20 07:57 Dose: 10 ml Documented by: Aspirin Chewable [[place]bo Aspirin] 81 mg PO DAILY 07/27/13 Diazepam 5 mg PO Q8H PRN 07/27/13 Digoxin 125 mcg PO DAILY 07/27/13 Dutasteride [Avodart] 0.5 mg PO DAILY 07/27/13 Furosemide [Lasix] 40 mg PO DAILY 07/27/13 Levothyroxine [Synthroid] 75 mcg PO DAILY 07/27/13 Magnesium Chloride [Slo Mag] 64 mg PO BID 07/27/13 Metoprolol Succinate [Toprol Xl] 100 mg PO DAILY 07/27/13 Quetiapine Xr [Seroquel Xr] 300 mg PO DAILY PM 07/27/13 Sertraline HCl 100 mg PO BID 07/27/13 Temazepam 15 mg PO QPM PRN 07/27/13 Trospium Chloride [Sanctura] 60 mg PO DAILY MDD at NOON 07/27/13 Warfarin [Coumadin] 5 mg PO SUTUTHSA 07/27/13 allopurinoL [Allopurinol] 150 mg PO QPM 07/27/13 Cyanocobalamin/Folic Acid [Vitamin V87-Pfndf Acid Tablet] 1 tab PO DAILY 08/12/13 Warfarin [Coumadin] 2.5 mg PO MOWEFR 09/18/16 lisinopriL [Lisinopril] 5 mg PO DAILY 09/18/16 Cholecalciferol (Vitamin D3) [Vitamin D] 1,200 unit PO BID 09/26/16 Omeprazole 20 mg PO DAILY 02/26/20 Allergies/Adverse Reactions: Allergies Allergy/AdvReac Type Severity Reaction Status Date / Time hydromorphone HCl * Allergy Severe Hallucinati Verified 02/26/20 11:54 [From Dilaudid] ons codeine Allergy Unknown Verified 02/26/20 11:54 duloxetine HCl * Allergy Anxiety Verified 02/26/20 11:54 [From Cymbalta] gabapentin [From Neurontin] Allergy Anxiety Verified 02/26/20 11:54 oxycodone HCl * Allergy Hallucinati Verified 02/26/20 11:54 [From OxyContin] ons Anes History & Medical History - Anesthetic History Anesthesia Complications: reports: No previous complications - Medical History Cardiovascular: reports: Congestive heart failure, Hypertension, Coronary artery disease, MA, Atrial fibrillation, Valve disorder (s/p mitral valve replacement) Pulmonary: reports: Sleep apnea, CPAP use Gastrointestinal: reports: GERD, GI bleed, Colon polyps Urinary: reports: Incontinence, Other Neuro: reports: None Musculoskeletal: reports: Osteoarthritis, Gout, Chronic back pain Endocrine/Autoimmune: reports: HyPOthyroidism Blood Disorders: reports: Anemia Skin: reports: Other Smoking Status: Former smoker Psychosocial: reports: Depression History of Cancer?: No - Surgical History Eyes Ears Nose Throat (EENT): Cataracts Cardiothoracic: Valve replacement, Pacemaker, AICD, Cardiac catheterization, Angioplasty, Other Orthopedic: Hip replacement, Shoulder arthroplasty, Amputation Dermatologic: Skin cancer surgery Results - Echo Results Echo Results: Report reviewed Exam General: Alert, Oriented x3, Cooperative, No acute distress Dental: Dentures full Upper, Poor dentition Mouth Openin Fingerbreadth Neck Mobility: Normal Mallampati classification: III Thyromental Distance: 4-6 cm Mental/Cognitive Status: Alert/Oriented X3, Normal for patient Plan Anesthesia Type: MAC Consent for Procedure(s) Verified and Reviewed: Yes Code Status: Attempt Resuscitation ASA classification: 3-Severe systemic disease Is this case an emergency?: Yes
[2020-02-27] MEDS ORDERED: PROPOFOL 200 MG/20 ML VIAL IVP ONE (13:56)
--- NOTE | 2020-02-27 14:56 | ANESTHESIA POST OP EVALUATION ---
Anesthesia Post Eval - Post Anesthesia Eval Vitals: Last Vital Signs Temp 36.7 C 02/27/20 08:00 Pulse 77 02/27/20 08:00 Resp 16 02/27/20 08:00 BP 119/73 02/27/20 08:00 Pulse Ox 95 02/27/20 08:00 CV Function Including HR & BP: positive: Stable Pain Control: positive: Satisfactory Nausea & Vomiting: positive: Negative Mental Status: positive: Baseline Respiratory Status: Airway Patent Hydration Status: Satisfactory Anesthesia Complications: positive: None
--- NOTE | 2020-02-27 15:48 | PHARMACY PROGRESS NOTE ---
- Best Possible Medication History Admit Date and Time: 02/27/20 1023 Processed by: Pharmacy Medication History completed: Yes Patient Interview: Pt unable to participate Secondary Source(s): Physician records, Pharmacy records, Insurance records As the person ultimately responsible for medication therapy, providers are able to order a medication from an existing home medication list in [facility] via the "Reconcile Routine" prior to Confirmation of that medication by support representative. Such practice is discouraged except when the physician, in their clinical judgment, deems that a medical need exists for a medication without regard to previous use.
--- NOTE | 2020-02-27 15:59 | PROVIDER PROGRESS NOTE ---
Progress Note Status post colonoscopy for GI bleed. INR corrected. Coumadin held. Findings as follows: 1. Diffuse colonic diverticulosis favoring the left. Extensive redundancy requiring stiffening wire to achieve the cecum. No active diverticular bleed appreciated. 2. No bright red blood noted within the colon. Terminal ileum intubated. No bleeding noted and no terminal ileitis appreciated. 3. No large masses ulcerations or other areas of concern appreciated. No colitis. No proctitis. No overt diverticulitis. 4. No bleeding hemorrhoids noted as well. Status post upper endoscopy as well: 1. Narrow pylorus requiring careful traversal however no significant stenosis preempting intubation 2. Pylorus again intubated, duodenum with no duodenitis no blood appreciated. Random biopsies obtained. 3. Extensive diffuse gastritis with antral inflammatory changes for which 2 clips were applied 4. No large masses or ulcers appreciated. Again extensive phytobezoar that was irrigated and aspirated. 5. Esophagus evaluated without any varices, no esophagitis. Random biopsies o btained. 6. Extensive phytobezoar disrupted and irrigated and aspirated surprising given the patient's n.p.o. status and bowel prep 7. Antral and gastric biopsies obtained. Patient tolerated well. Recommend the following: A. Advance diet slowly low residue B. Continue PPI therapeutic C. Carafate 4 times daily D. Continue to trend H&H
[2020-02-27 16:05] LABS: HGB - HEMOGLOBIN 9.4 g/dL (14.0-18.0)
[2020-02-27] MEDS ORDERED: WARFARIN 2.5 MG TABLET PO SCH (18:14)
[2020-02-27] MEDS: QUEtiapine 100 MG TABLET PO SCH (20:45)
[2020-02-27 22:06] LABS: HGB - HEMOGLOBIN 9.3 g/dL (14.0-18.0)
[2020-02-28] MEDS: SODIUM CHLORIDE FLUSH 0.9% 10 ML SYRINGE IVP SCH ×3 (00:02→20:27)
[2020-02-28 04:36] LABS: INR 1.6 (0.8-1.2); PT - PROTHROMBIN TIME 17.2 secs (9.9-12.6)
[2020-02-28 04:37] LABS: BASOPHILS % (AUTO) 0.2 %; EOSINOPHILS # (AUTO) 0.1 10^3/uL (0.0-0.7); EOSINOPHILS % (AUTO) 2.5 %; HGB - HEMOGLOBIN 9.2 g/dL (14.0-18.0); LYMPHOCYTES # (AUTO) 0.9 10^3/uL (1.5-3.5); LYMPHOCYTES % (AUTO) 19.2 %; MEAN CORPUSCULAR HEMOGLOBIN 29.9 pg (27.0-31.0); MEAN CORPUSCULAR HGB CONC 31.6 g/dL (32.0-36.0); MEAN CORPUSCULAR VOLUME 94.5 fL (80.0-94.0); MEAN PLATELET VOLUME 9.2 fL (7.4-11.4); MONOCYTES # (AUTO) 0.4 10^3/uL (0.0-1.0); MONOCYTES % (AUTO) 9.5 %; NEUTROPHILS % (AUTO) 68.1 %; PLT - PLATELET COUNT 136 10^3/uL (130-450); RED BLOOD COUNT 3.08 10^6/uL (4.70-6.10); WHITE BLOOD COUNT 4.4 x10^3/uL (4.8-10.8)
[2020-02-28 04:41] LABS: CALCIUM 8.4 mg/dL (8.5-10.3); CREATININE 1.5 mg/dL (0.6-1.2)
[2020-02-28] MEDS: LEVOTHYROXINE 75 MCG TABLET PO SCH (06:10)
[2020-02-28] MEDS: PANTOPRAZOLE 40 MG VIAL IVP SCH (07:49)
[2020-02-28] MEDS: METOPROLOL SUCCINATE 50 MG TABLET PO SCH (07:49)
[2020-02-28] MEDS: SERTRALINE 50 MG TABLET PO SCH ×2 (07:50→20:29)
[2020-02-28] MEDS: ENOXAPARIN 100 MG/ML SYRINGE SUBQ SCH ×2 (07:50→20:28)
[2020-02-28] MEDS: DIGOXIN 125 MCG TABLET PO SCH (07:50)
[2020-02-28] MEDS: FERROUS SULFATE 325 MG TABLET PO SCH (07:50)
[2020-02-28] MEDS: WARFARIN 5 MG TABLET PO SCH (10:28)
--- NOTE | 2020-02-28 10:54 | PROVIDER PROGRESS NOTE ---
Subjective - Prog Note Date Prog Note Date: 02/28/20 - Subjective Subjective: Reports feeling quite well. Denies any abdominal pain, nausea, vomiting. Has not noticed any dark stools. Nursing has not noticed any bleeding. Went for EGD yesterday. Current Medications - Current Medications Current Medications: Active Medications Acetaminophen (Acetaminophen 325 Mg Tablet) 650 mg PO Q4HR PRN PRN Reason: Pain 1 to 4 Last Admin: 02/27/20 09:41 Dose: 650 mg Documented by: Diazepam (Diazepam 5 Mg Tablet) 5 mg PO Q8H PRN PRN Reason: Spasms Last Admin: 02/27/20 09:41 Dose: 5 mg Documented by: Digoxin (Digoxin 125 Mcg Tablet) 125 mcg PO DAILY [facility] Last Admin: 02/28/20 07:50 Dose: 125 mcg Documented by: Enoxaparin Sodium (Enoxaparin 100 Mg/Ml Syringe) 100 mg SUBQ BID [facility] Last Admin: 02/28/20 07:50 Dose: 100 mg Documented by: Ferrous Sulfate (Ferrous Sulfate 325 Mg Tablet) 325 mg PO DAILYWM [facility] Last Admin: 02/28/20 07:50 Dose: 325 mg Documented by: Levothyroxine Sodium (Levothyroxine 75 Mcg Tablet) 75 mcg PO QDAC [facility] Last Admin: 02/28/20 06:10 Dose: 75 mcg Documented by: Lorazepam (Lorazepam 1 Mg Tablet) 1 mg PO HS PRN PRN Reason: Insomnia Last Admin: 02/27/20 09:41 Dose: 1 mg Documented by: Metoprolol Succinate (Metoprolol Succinate 50 Mg Tablet) 100 mg PO DAILY [facility] Last Admin: 02/28/20 07:49 Dose: 100 mg Documented by: Ondansetron HCl (Ondansetron 4 Mg/2 Ml Vial) 4 mg IVP Q6HR PRN PRN Reason: Nausea / Vomiting Pantoprazole Sodium (Pantoprazole 40 Mg Vial) 40 mg IVP BID [facility] Last Admin: 02/28/20 07:49 Dose: 40 mg Documented by: Quetiapine Fumarate (Quetiapine 100 Mg Tablet) 300 mg PO QPM [facility] Last Admin: 02/27/20 20:45 Dose: 300 mg Documented by: Sertraline HCl (Sertraline 50 Mg Tablet) 100 mg PO BID [facility] Last Admin: 02/28/20 07:50 Dose: 100 mg Documented by: Sodium Chloride (Sodium Chloride Flush 0.9% 10 Ml Syringe) 10 ml IVP PRN PRN PRN Reason: NEEDED PER PROVIDER ORDERS Last Admin: 02/27/20 20:45 Dose: 10 ml Documented by: Sodium Chloride (Sodium Chloride Flush 0.9% 10 Ml Syringe) 10 ml IVP 0100,0900,1700 [facility] Last Admin: 02/28/20 07:49 Dose: 10 ml Documented by: Warfarin Sodium (Warfarin 5 Mg Tablet) 5 mg PO SuTuThSa@0900 [facility] Last Admin: 02/28/20 10:28 Dose: 5 mg Documented by: Warfarin Sodium (Warfarin 2.5 Mg Tablet) 2.5 mg PO [facility] Aspirin Chewable [[place]bo Aspirin] 81 mg PO DAILY 07/27/13 Diazepam 5 mg PO QPM PRN 07/27/13 Digoxin 125 mcg PO DAILY 07/27/13 Dutasteride [Avodart] 0.5 mg PO DAILY 07/27/13 Furosemide [Lasix] 40 mg PO DAILY 07/27/13 Levothyroxine [Synthroid] 75 mcg PO DAILY 07/27/13 Magnesium Chloride [Slo Mag] 64 mg PO BID 07/27/13 Sertraline HCl 100 mg PO BID 07/27/13 Temazepam 15 mg PO QPM PRN 07/27/13 Trospium Chloride [Sanctura] 60 mg PO DAILY MDD at NOON 07/27/13 Warfarin [Coumadin] 5 mg PO SUTUTHSA 07/27/13 allopurinoL [Allopurinol] 150 mg PO QPM 07/27/13 Cyanocobalamin/Folic Acid [Vitamin O20-Uxear Acid Tablet] 1 tab PO DAILY 08/12/13 Warfarin [Coumadin] 2.5 mg PO MOWEFR 09/18/16 lisinopriL [Lisinopril] 5 mg PO DAILY 09/18/16 Omeprazole 40 mg PO QDAC 02/26/20 Acetaminophen [Acetaminophen Extra Strength] 500 mg PO Q6H PRN 02/27/20 Calcium Carbonate/Vitamin D3 [Calcium 500 mg-Vit D3 600 Unit] 1 tab PO BID 02/26 Diphenhydramine HCl [Benadryl] 50 mg PO Q6H PRN 02/27/20 Metoprolol Succinate [Toprol Xl] 100 mg PO DAILY 02/27/20 Quetiapine Fumarate [Seroquel Xr] 300 mg PO QPM 02/27/20 Objective - Vital Signs/Intake & Output Reviewed Vital Signs: Yes Vital Signs: Vital Signs x48h Temp Pulse Resp BP Pulse Ox 02/28/20 07:54 36.7 C 73 18 121/71 92 02/28/20 04:18 37.1 C 76 16 101/55 L 94 Intake & Output: Intake & Output 02/25/20 02/26/20 02/27/20 02/28/20 23:59 23:59 23:59 23:59 Intake Total 1347 3546.333 1260 Output Total 1800 1475 550 Balance -453 2071.333 710 - Objective General Appearance: positive: No acute distress, Alert Eyes Bilateral: positive: Normal inspection, Conjunctivae nml ENT: positive: ENT inspection nml, Other (Poor dentition.) Neck: positive: Nml inspection Respiratory: positive: No respiratory distress. negative: Wheezes, Rales Cardiovascular: positive: Regular rate & rhythm. negative: Tachycardia, Systolic murmur Abdomen: positive: Non-tender, No distention. negative: Tenderness Skin: positive: Warm, Dry - Lab Results Fish Bones: 02/28/20 04:20 02/28/20 04:20 Other Labs: Lab Results x24hrs 02/28/20 02/28/20 02/28/20 Range/Units 04:20 04:20 04:20 WBC 4.4 L (4.8-10.8) x10^3/uL RBC 3.08 L (4.70-6.10) 10^6/uL Hgb 9.2 L (14.0-18.0) g/dL Hct 29.1 L (42.0-52.0) % MCV 94.5 H (80.0-94.0) fL MCH 29.9 (27.0-31.0) pg MCHC 31.6 L (32.0-36.0) g/dL RDW 18.0 H (12.0-15.0) % Plt Count 136 (130-450) 10^3/uL MPV 9.2 (7.4-11.4) fL Neut # (Auto) 3.0 (1.5-6.6) 10^3/uL Lymph # (Auto) 0.9 L (1.5-3.5) 10^3/uL Crowley # (Auto) 0.4 (0.0-1.0) 10^3/uL Eos # (Auto) 0.1 (0.0-0.7) 10^3/uL Baso # (Auto) 0.0 (0.0-0.1) 10^3/uL Absolute Nucleated RBC 0.00 x10^3/uL Nucleated RBC % 0.0 /100WBC PT 17.2 H (9.9-12.6) secs INR 1.6 H (0.8-1.2) Sodium 136 (135-145) mmol/L Potassium 4.3 (3.5-5.0) mmol/L Chloride 106 (101-111) mmol/L Carbon Dioxide 21 (21-32) mmol/L Anion Gap 9.0 (6-13) BUN 37 H (6-20) mg/dL Creatinine 1.5 H (0.6-1.2) mg/dL Estimated GFR (MDRD) 45 L (>89) Glucose 100 (70-100) mg/dL Calcium 8.4 L (8.5-10.3) mg/dL 02/27/20 02/27/20 Range/Units 21:59 15:58 WBC (4.8-10.8) x10^3/uL RBC (4.70-6.10) 10^6/uL Hgb 9.3 L 9.4 L (14.0-18.0) g/dL Hct 29.7 L 29.9 L (42.0-52.0) % MCV (80.0-94.0) fL MCH (27.0-31.0) pg MCHC (32.0-36.0) g/dL RDW (12.0-15.0) % Plt Count (130-450) 10^3/uL MPV (7.4-11.4) fL Neut # (Auto) (1.5-6.6) 10^3/uL Lymph # (Auto) (1.5-3.5) 10^3/uL Crowley # (Auto) (0.0-1.0) 10^3/uL Eos # (Auto) (0.0-0.7) 10^3/uL Baso # (Auto) (0.0-0.1) 10^3/uL Absolute Nucleated RBC x10^3/uL Nucleated RBC % /100WBC PT (9.9-12.6) secs INR (0.8-1.2) Sodium (135-145) mmol/L Potassium (3.5-5.0) mmol/L Chloride (101-111) mmol/L Carbon Dioxide (21-32) mmol/L Anion Gap (6-13) BUN (6-20) mg/dL Creatinine (0.6-1.2) mg/dL Estimated GFR (MDRD) (>89) Glucose (70-100) mg/dL Calcium (8.5-10.3) mg/dL ABX Reporting Has patient been on IV antibiotics over the past 48 hours?: No Assessment/Plan - Problem List (1) Gastritis Impression: This is likely the source of his bleeding. EGD revealed gastritis without any significant bleeding. I suspect his supratherapeutic INR caused him to have some oozing. His hemoglobin has since been stable without any further evidence of bleeding. We will monitor him tonight while he is on Lovenox to ensure hemoglobin is stable without further evidence of bleeding. If it is stable we will look to discharge him tomorrow. We will continue him on aspirin given his cardiac history but I have asked him to avoid all NSAIDs. Continue with PPI. (2) Acute blood loss anemia Impression: This is secondary to the upper GI bleed. His hemoglobin has since been stable without further evidence of bleeding. We have started him on Lovenox this morning given his subtherapeutic INR. We will watch him overnight to ensure no further evidence of bleeding. We will recheck hemoglobin this evening and tomorrow morning. If it is stable then will discharge him tomorrow on a Lovenox bridge back to Coumadin. (3) Supratherapeutic INR Impression: He is now subtherapeutic after receiving vitamin K. I started him on Lovenox. We have resumed Coumadin today. His INR will be checked daily during his hospitalization. He will need close outpatient follow-up as it is not clear what caused him to be supratherapeutic on admission. He will need adjusting of his Coumadin dose. (4) A-fib Impression: He is in a paced rhythm. Continue metoprolol and digoxin. He is on Lovenox for anticoagulation and we will resume Coumadin. (5) History of prosthetic heart valve Impression: He has a history of prosthetic mitral valve there is reportedly a [place] mitral valve. He is being bridged with Lovenox to Coumadin and so we will watch him tonight to ensure no further evidence of bleeding and we will look to discharge him on Lovenox tomorrow with a bridge to Coumadin. (6) [id number] kidney injury Impression: This has resolved. His renal function is back to baseline. (7) Hypothyroidism Impression: Continue Synthroid. (8) Bipolar 1 disorder Impression: Continue home Seroquel.
[2020-02-28] MEDS: ASPIRIN CHEW 81 MG TABLET PO SCH (12:00)
[2020-02-28 14:55] LABS: HGB - HEMOGLOBIN 9.9 g/dL (14.0-18.0)
[2020-02-28] MEDS: QUEtiapine 100 MG TABLET PO SCH (20:29)
[2020-02-28] MEDS ORDERED: allopurinoL 100 MG TABLET PO SCH (21:00)
[2020-02-29] MEDS: SODIUM CHLORIDE FLUSH 0.9% 10 ML SYRINGE IVP SCH ×2 (01:06→09:12)
[2020-02-29 05:59] LABS: BASOPHILS % (AUTO) 0.2 %; EOSINOPHILS # (AUTO) 0.1 10^3/uL (0.0-0.7); HGB - HEMOGLOBIN 9.1 g/dL (14.0-18.0); LYMPHOCYTES # (AUTO) 0.6 10^3/uL (1.5-3.5); LYMPHOCYTES % (AUTO) 11.2 %; MEAN CORPUSCULAR HEMOGLOBIN 30.1 pg (27.0-31.0); MEAN CORPUSCULAR HGB CONC 31.8 g/dL (32.0-36.0); MEAN CORPUSCULAR VOLUME 94.7 fL (80.0-94.0); MEAN PLATELET VOLUME 9.5 fL (7.4-11.4); MONOCYTES # (AUTO) 0.5 10^3/uL (0.0-1.0); MONOCYTES % (AUTO) 9.8 %; NEUTROPHILS # (AUTO) 3.9 10^3/uL (1.5-6.6); NEUTROPHILS % (AUTO) 77.4 %; PLT - PLATELET COUNT 140 10^3/uL (130-450); RED BLOOD COUNT 3.02 10^6/uL (4.70-6.10); RED CELL DISTRIBUTION WIDTH 17.5 % (12.0-15.0)
[2020-02-29 06:03] LABS: INR 1.6 (0.8-1.2); PT - PROTHROMBIN TIME 17.4 secs (9.9-12.6)
[2020-02-29 06:08] LABS: CALCIUM 8.5 mg/dL (8.5-10.3); CREATININE 1.5 mg/dL (0.6-1.2)
[2020-02-29] MEDS: LEVOTHYROXINE 75 MCG TABLET PO SCH (06:09)
[2020-02-29] MEDS ORDERED: PANTOPRAZOLE 40 MG TABLET PO SCH (07:00)
--- NOTE | 2020-02-29 07:46 | Discharge Plan ---
Discharge Plan Problem Reviewed?: Yes Disposition: Home, Self Care Condition: Stable Prescriptions: Ferrous Sulfate [Feosol] 325 mg PO DAILYWM #30 tablet Pantoprazole [Protonix] 40 mg PO QDAC #30 tablet Diet: Cardiac Activity Restrictions: Activity as Tolerated Health Concerns: You were seen in the hospital because of concern for bleeding from your stomach. Your blood counts were a little low and you were given 1 unit of blood. Your blood counts have since been stable. You had an endoscopy and colonoscopy. The colonoscopy was unremarkable. The endoscopy showed gastritis of your stomach which is inflammation. It is likely that this was a source of your bleeding due to your INR being elevated at 5. You may continue to take aspirin but avoid all other NSAIDs like ibuprofen, Mot rin, naproxen. Please take Protonix 40 mg every day. Plan of Treatment: Avoid all NSAIDs as mentioned above. It is important that you take Protonix 40 mg daily. Your INR was elevated and it is unclear why this is given you have not had a dose adjustment or any changes in your medication. Right now it is 1.6 and so you will need to take Lovenox at home. Please take 100 mg twice a day until your INR is back above 2.5. You will need your INR checked on Sunday the . We have not adjusted your Coumadin dose given your INR is low at this time and you were previously well controlled on this regimen. You will need close follow-up with your primary care provider or lot attendant because if your INR does become elevated above 3.5, you will need a dose adjustment of your Coumadin. You will need to make sure that your INR is above 2.5 before the Lovenox is stopped. You already have Lovenox at home and so a prescription was not sent. Please continue to take iron supplementation as your iron levels are low. Care Goals: Please return to the emergency department if you develop any further episodes of bleeding, lightheadedness, dizziness. Assessment: The patient and family expressed understanding of the treatment plan. Additional Instructions or Follow Up instructions: You will need your INR checked in 2 days. Please follow-up with your primary care provider or lot attendant so that they can tell you when to stop the Lovenox. No Smoking: If you smoke, Please STOP! Call for help. Follow-up with: Grayson Raymond MD [Primary Care Provider] -
[2020-02-29] MEDS ORDERED: FUROSEMIDE 40 MG TABLET PO SCH (09:00)
[2020-02-29] MEDS ORDERED: lisinopriL 5 MG TABLET PO SCH (09:00)
[2020-02-29] MEDS: SERTRALINE 50 MG TABLET PO SCH (09:10)
[2020-02-29] MEDS: FERROUS SULFATE 325 MG TABLET PO SCH (09:10)
[2020-02-29] MEDS: ASPIRIN CHEW 81 MG TABLET PO SCH (09:11)
[2020-02-29] MEDS: METOPROLOL SUCCINATE 50 MG TABLET PO SCH (09:11)
[2020-02-29] MEDS: DIGOXIN 125 MCG TABLET PO SCH (09:11)
[2020-02-29] MEDS: WARFARIN 5 MG TABLET PO SCH (09:11)
[2020-02-29] MEDS: ENOXAPARIN 100 MG/ML SYRINGE SUBQ SCH (09:11)
--- NOTE | 2020-02-29 10:15 | DISCHARGE SUMMARY ---
Discharge Summary Admit Date: 02/26/20 Discharge Date: 02/29/20 Discharging Provider: Hector Montes Primary Care Provider: Grayson Raymond Code Status: Do Not Attempt Resuscitation Condition at Discharge: Stable Discharge Disposition: 01 Home, Self Care - DIAGNOSES Admission Diagnoses: Dark stools Anemia Acute on chronic kidney injury History of prosthetic heart valve History of congestive heart disease A. fib Hypothyroidism Bipolar 1 disorder Discharge Diagnoses with Status of Each Condition: Gastritis - stable. Acute blood loss anemia - stable. Supratherapeutic INR - resolved. A. fib - stable. History of prosthetic heart valve - stable. Acute on chronic kidney injury - resolved. Hypothyroidism - stable. Bipolar 1 disorder - stable. - HPI History of Present Illness: H&P per MARTIN Lora: 79-year-old man with past medical history of GI bleeding, prosthetic heart valve on Coumadin since 2003, Congestive heart failure, Hypertension, Coronary artery disease, [place], Atrial fibrillation, anemia, Sleep apnea on CPAP use, Hypothyroidism, GERD, chronic vision loss, chronic hearing loss, Major depression, bipolar disease, osteomyelitis, gout, chronic back pain, who presents ER complain of dark tarry stool and weakness.Patient was sent by his primary doctor Dr. Raymond who called ahead about his down trending hemoglobin, and increased creatinine and acute kidney injury. Patient reported couple months ago he had GI bleeding, and he had a colonoscopy which did remove some polyps. After that, patient report he is doing fine. Patient reported he found that he had dark tarry stool couple days ago. At the same time he feel weak and some kind of dizziness. He denies abdominal pain, nausea, vomiting, diarrhea, fever, shortness breathing, cough, chest pain. Routine laboratory tests that show patient had hemoglobin 8.8 on today, patient had a hemoglobin 10.3 reported about 2 years ago. Patient had a creatinine 2.1 on today, patient had creatinine 1.7 about 1 year ago. Patient takes Coumadin at home, today patient INR is 5.0, patient was given vitamin K in the ER. General surgeon was called by the ER and plain tomorrow EGD and colonoscopy for patient. Discussed the care goal with the patient, patient request DNR, "Do not do any more to me." - CONSULTS | PROCEDURES Consultations: General Surgery Procedures: Colonoscopy: 1. Diffuse colonic diverticulosis favoring the left. Extensive redundancy requiring stiffening wire to achieve the cecum. No active diverticular bleed appreciated. 2. No bright red blood noted within the colon. Terminal ileum intubated. No bleeding noted and no terminal ileitis appreciated. 3. No large masses ulcerations or other areas of concern appreciated. No colitis. No proctitis. No overt diverticulitis. 4. No bleeding hemorrhoids noted as well. EGD: 1. Narrow pylorus requiring careful traversal however no significant stenosis preempting intubation 2. Pylorus again intubated, duodenum with no duodenitis no blood appreciated. Random biopsies obtained. 3. Extensive diffuse gastritis with antral inflammatory changes for which 2 clips were applied 4. No large masses or ulcers appreciated. Again extensive phytobezoar that was irrigated and aspirated. 5. Esophagus evaluated without any varices, no esophagitis. Random biopsies obtained. 6. Extensive phytobezoar disrupted and irrigated and aspirated surprising given the patient's n.p.o. status and bowel prep 7. Antral and gastric biopsies obtained. Patient tolerated well. - HOSPITAL COURSE Hospital Course: He was admitted for acute blood loss anemia secondary to upper GI bleed. He was given 1 unit of packed red blood cell. He was given vitamin K to reverse his supratherapeutic INR which was 5.0. He went for EGD and colonoscopy. Colonoscopy was unremarkable and EGD revealed gastritis. This was clipped. There was also a phytobezoar which was irrigated and aspirated. He was started on Lovenox after the EGD given his mechanical mitral valve. His hemoglobin has been stable on anticoagulation without further evidence of bleeding. His iron studies were suggestive of iron deficiency anemia and he was discharged on oral iron. He was asked to continue Lovenox and to resume his Coumadin and have his INR checked in 2 days. This was also discussed with his . The INR is subtherapeutic on discharge at 1.6. We did not adjust his Coumadin dose given his states it has been relatively controlled and he had no changes in his medications or dose adjustment recently and therefore I have asked him to continue his same dose and follow-up with his PCP or computer science teacher for monitoring of his INR. He was not sent a prescription given his states they already have Lovenox available as he was preparing for an outpatient EGD either way. - ALLERGIES Allergies/Adverse Reactions: Allergies Allergy/AdvReac Type Severity Reaction Status Date / Time hydromorphone HCl * Allergy Severe Hallucinati Verified 02/26/20 11:54 [From Dilaudid] ons codeine Allergy Unknown Verified 02/26/20 11:54 duloxetine HCl * Allergy Anxiety Verified 02/26/20 11:54 [From Cymbalta] gabapentin [From Neurontin] Allergy Anxiety Verified 02/26/20 11:54 oxycodone HCl * Allergy Hallucinati Verified 02/26/20 11:54 [From OxyContin] ons - MEDICATIONS Home Medications: Ambulatory Orders Medication Instructions Recorded Confirmed Aspirin Chewable [St Jimbo 81 mg PO DAILY 07/27/13 02/26/20 Aspirin] Diazepam 5 mg PO QPM PRN 07/27/13 02/27/20 Digoxin 125 mcg PO DAILY 07/27/13 02/26/20 Dutasteride [Avodart] 0.5 mg PO DAILY 07/27/13 02/27/20 Furosemide [Lasix] 40 mg PO DAILY 07/27/13 02/26/20 Levothyroxine [Synthroid] 75 mcg PO DAILY 07/27/13 02/27/20 Magnesium Chloride [Slo Mag] 64 mg PO BID 07/27/13 02/26/20 Sertraline HCl 100 mg PO BID 07/27/13 02/26/20 Temazepam 15 mg PO QPM PRN 07/27/13 02/26/20 Trospium Chloride [Sanctura] 60 mg PO DAILY MDD at NOON 07/27/13 02/26/20 Warfarin [Coumadin] 5 mg PO SUTUTHSA 07/27/13 02/26/20 allopurinoL [Allopurinol] 150 mg PO QPM 07/27/13 02/26/20 Cyanocobalamin/Folic Acid [Vitamin 1 tab PO DAILY 08/12/13 02/27/20 [id number] Acid Tablet] Warfarin [Coumadin] 2.5 mg PO MOWEFR 09/18/16 02/26/20 lisinopriL [Lisinopril] 5 mg PO DAILY 09/18/16 02/26/20 Acetaminophen [Acetaminophen Extra 500 mg PO Q6H PRN 02/27/20 02/27/20 Strength] Calcium Carbonate/Vitamin D3 1 tab PO BID 02/27/20 02/27/20 [Calcium 500 mg-Vit D3 600 Unit] Diphenhydramine HCl [Benadryl] 50 mg PO Q6H PRN 02/27/20 02/27/20 Metoprolol Succinate [Toprol Xl] 100 mg PO DAILY 02/27/20 02/27/20 Quetiapine Fumarate [Seroquel Xr] 300 mg PO QPM 02/27/20 02/27/20 Enoxaparin [Lovenox] 100 mg SUBQ BID syringe 02/29/20 Ferrous Sulfate [Feosol] 325 mg PO DAILYWM #30 tablet 02/29/20 Pantoprazole [Protonix] 40 mg PO QDAC #30 tablet 02/29/20 - PHYSICAL EXAM AT DISCHARGE General Appearance: positive: No acute distress, Mild distress Eyes Bilateral: positive: Conjunctivae nml ENT: positive: ENT inspection nml Neck: positive: Nml inspection Respiratory: positive: No respiratory distress. negative: Wheezes, Rales Cardiovascular: positive: Regular rate & rhythm, Systolic murmur, Other (Mechanical click noted.). negative: Tachycardia Abdomen: positive: Non-tender, No distention. negative: Tenderness Skin: positive: Warm, Dry Extremities: positive: Full ROM, Pedal edema (Trace edema) Neurologic/Psychiatric: negative: Disoriented to person, Disoriented to place Physical Exam Other/Comments: Vital Signs - 24 hr 02/28/20 02/28/20 02/29/20 16:06 20:19 01:06 Temperature 36.7 C 37.2 C 37.3 C Heart Rate [ 77 106 H 76 Brachial] Respiratory 20 18 16 Rate Blood Pressure 129/73 130/86 H 106/59 L [Right Brachial artery] O2 Saturation 93 98 93 02/29/20 02/29/20 02/29/20 04:00 08:01 09:14 Temperature 37.5 C 37.5 C Heart Rate [ 98 76 78 Brachial] Respiratory 20 20 Rate Blood Pressure 128/83 H 106/54 L 104/61 [Right Brachial artery] O2 Saturation 93 93 Oxygen O2 Source Room air - LABS Result Diagrams: 02/29/20 05:38 02/29/20 05:38 Other Lab Results: Laboratory Results - last 24 hr 02/26/20 02/28/20 02/29/20 12:28 14:49 05:38 WBC 5.0 RBC 3.02 L Hgb 9.9 L 9.1 L Hct 30.9 L 28.6 L MCV 94.7 H MCH 30.1 MCHC 31.8 L RDW 17.5 H Plt Count 140 MPV 9.5 Neut # (Auto) 3.9 Lymph # (Auto) 0.6 L Coke # (Auto) 0.5 Eos # (Auto) 0.1 Baso # (Auto) 0.0 Absolute Nucleated RBC 0.00 Nucleated RBC % 0.0 PT INR Sodium Potassium Chloride Carbon Dioxide Anion Gap BUN Creatinine Estimated GFR (MDRD) Glucose Calcium Blood Type O POSITIVE Antibody Screen NEGATIVE Crossmatch IS Only See Detail 02/29/20 02/29/20 05:38 05:38 WBC RBC Hgb Hct MCV MCH MCHC RDW Plt Count MPV Neut # (Auto) Lymph # (Auto) Coke # (Auto) Eos # (Auto) Baso # (Auto) Absolute Nucleated RBC Nucleated RBC % PT 17.4 H INR 1.6 H Sodium 135 Potassium 4.4 Chloride 105 Carbon Dioxide 22 Anion Gap 8.0 BUN 31 H Creatinine 1.5 H Estimated GFR (MDRD) 45 L Glucose 117 H Calcium 8.5 Blood Type Antibody Screen Crossmatch IS Only - FOLLOW UP Follow Up: He was asked to follow-up with his primary care provider in 1 week. He was asked to obtain an INR in 2 days. He was told to continue the Lovenox until his primary care provider or computer science teacher informs him to discontinue it. - TIME SPENT Time Spent in Discharge (Minutes): 34
[2020-02-29 11:36] VITALS: BP 108/62
[2020-03-01] MEDS ORDERED: WARFARIN 2.5 MG TABLET PO SCH (09:00)
--- NOTE | 2020-03-02 13:08 | OPERATIVE REPORT ---
Operative Report - General Admit Date: 02/27/20 Procedure Date: 02/27/20 (Please note IQ software was malfunctional. Attempt to incorporate image independently through scanning.) Planned Procedure: 1. Diagnostic colonoscopy 2. Possible therapeutic endoscopy 3. Ileoscopy 4. Planned upper endoscopy after completion Pre-Op Diagnosis: Gastrointestinal bleed, acute on chronic blood loss anemia, multiple comorb Procedure Performed: 1. Diagnostic colonoscopy 2. Ileoscopy 3. Planned upper endoscopy after completion Post Op Diagnosis: Same, extensive diverticulosis, no active lower gastrointestinal hemorrhage - Procedure Note Primary Surgeon: Amanda Secondary Surgeon: Keith Anesthesia Provider: Dominic Anesthesia Technique: MAC Pathology: None Estimated Blood Loss (mL): 0 Indications: 79-year-old man with past medical history prosthetic heart valve on Coumadin since 2003, Congestive heart failure, Hypertension, Coronary artery disease, [place], Atrial fibrillation, anemia, Sleep apnea on CPAP, Hypothyroidism, GERD, chronic vision loss, chronic hearing loss, Major depression, bipolar disease, osteomyelitis, gout, chronic back pain, who presents ER complain of dark tarry stool and weakness. Colonoscopy with the last several years for which he reports polyps. Prior upper endoscopy however no reported ulcers in the past. Does not take nonsteroidal anti-inflammatory agents regularly other than baby aspirin. Has chronic renal insufficiency. Supratherapeutic INR. Dosed vitamin K and transfused 1 unit for hemoglobin of 8. Surgical consultation called for endoscopic evaluation. Findings: 1. Diffuse colonic diverticulosis favoring the left. Extensive redundancy requiring stiffening wire to achieve the cecum. No active diverticular bleed appreciated. 2. No bright red blood noted within the colon. Terminal ileum intubated. No bleeding noted and no terminal ileitis appreciated. 3. No large masses ulcerations or other areas of concern appreciated. No colitis. No proctitis. No overt diverticulitis. 4. No bleeding hemorrhoids noted as well. 5. No active lower gastrointestinal hemorrhage or source of acute blood loss anemia appreciated Complications: NONE - Other Other Information/Narrative: Please note that IQ software on the day of procedure and malfunction and was not accessible through the computer station used. We will reattempt to incorporate photographs however these asked and surrogate as a dictated operative report. Patient was taken to the endoscopic suite and informed consent had already been obtained. Patient was placed in lateral decubitus position and a timeout was called and agreed to by all in the room. Please note that the patient was induced for monitored anesthesia care. At this time, the patient was performed for a digital rectal, which was notable for pertinent positives as listed above under brief procedural findings. The patient, thereafter, was then inserted for the colonoscope, which was passed as stated above with noted necessary postural changes or counter-pressure as mentioned in the above listed procedural findings. Prep was adequate to identify polyps greater than 6 mm with retained stool as well as extensive vegetable matter within the cecum. Findings were notable for extensive diverticulosis however no diverticular bleed appreciated. Biopsies were not taken. The caecum was achieved as noted by both the ileocecal valve and the appendiceal orifice, both of which were documented in the permanent medical record by photography (again IQ software was now functional and well reattempt at least to scan the images). The ileocaecal valve was attempted for intubation with findings as listed below. Terminal ileum was normal without ileitis. Again no active colitis or proctitis. Thereafter, careful circumferential colonoscopic evaluation commenced starting at the level of the caecum and continuing through to the rectosigmoid junction with notable findings as reported above, and polyps or biopsies performed as per above as well. On continued slow withdrawal of the colonoscope the rectosigmoid junction was achieved and rectal findings are as listed above as well. Retroflexion if performed was noted for below listed findings. Findings on retroflexion unremarkable. The patient tolerated the procedure well for which there was no complication. Absent any active lower gastrointestinal source we proceeded with upper endoscopy. Specific findings are as follows: 1. Diffuse colonic diverticulosis favoring the left. Extensive redundancy requiring stiffening wire to achieve the cecum. No active diverticular bleed appreciated. 2. No bright red blood noted within the colon. Terminal ileum intubated. No bleeding noted and no terminal ileitis appreciated. 3. No large masses ulcerations or other areas of concern appreciated. No colitis. No proctitis. No overt diverticulitis. 4. No bleeding hemorrhoids noted as well. 5. No active lower gastrointestinal hemorrhage or source of acute blood loss anemia appreciated Please note that voice recognition software was used to transcribe this note and inadvertent errors might persist in spite of review and editing. I am obliged to you for your attention. I am thankful to you for allowing me to participate with you in this care of this patient.
--- NOTE | 2020-03-02 13:09 | OPERATIVE REPORT ---
Operative Report - General Admit Date: 02/27/20 Procedure Date: 02/27/20 Planned Procedure: 1. Diagnostic esophagogastroduodenoscopy 2. Possible therapeutic esophagogastroduodenoscopy 3. Planned biopsies independently of the stomach, duodenum and esophagus Pre-Op Diagnosis: GI bleed, "neg" colonoscopy, acute on chronic anemia, mult comorbid states Procedure Performed: 1. Diagnostic esophagogastroduodenoscopy 2. Therapeutic esophagogastroduodenoscopy with hemostatic Endoclips placed x2 3. Biopsies independently of the stomach, duodenum and esophagus 4. Patient with extensive phytobezoar like material requiring extensive aspiration and lavage for removal of foreign material Post Op Diagnosis: Same, gastritis, phytobezoar, mild pyloric stenosis - Procedure Note Primary Surgeon: Amanda Secondary Surgeon: Keith Anesthesia Provider: Dominic Anesthesia Technique: MAC Pathology: 1. Duodenum 2. Pylorus/antrum 3. Random gastric 4. GE junction Estimated Blood Loss (mL): 5 Indications: 79-year-old man with past medical history prosthetic heart valve on Coumadin since 2003, Congestive heart failure, Hypertension, Coronary artery disease, [place], Atrial fibrillation, anemia, Sleep apnea on CPAP, Hypothyroidism, GERD, chronic vision loss, chronic hearing loss, Major depression, bipolar disease, osteomyelitis, gout, chronic back pain, who presents ER complain of dark tarry stool and weakness. Colonoscopy with the last several years for which he reports polyps. Prior upper endoscopy however no reported ulcers in the past. Does not take nonsteroidal anti-inflammatory agents regularly other than baby aspirin. Has chronic renal insufficiency. Supratherapeutic INR. Dosed vitamin K and transfused 1 unit for hemoglobin of 8. Surgical consultation called for endoscopic evaluation. Findings: 1. Narrow pylorus requiring careful traversal however no significant stenosis preempting intubation 2. Pylorus again intubated, duodenum with no duodenitis no blood appreciated. Random biopsies obtained. 3. Extensive diffuse gastritis with antral inflammatory changes for which 2 clips were applied 4. No large masses or ulcers appreciated. Again extensive phytobezoar that was irrigated and aspirated. 5. Esophagus evaluated without any varices, no esophagitis. Random biopsies obtained. 6. Extensive phytobezoar disrupted and irrigated and aspirated surprising given the patient's n.p.o. status and bowel prep 7. Antral and gastric biopsies obtained. Patient tolerated well. Complications: NONE - Other Other Information/Narrative: Please note endoscopic IQ software was not functional at the computer terminal necessary for me to complete this report. We will attempt to scan photographs shortly. The patient had already undergone coloscopic evaluation. Patient was already induced for monitored anesthesia care. Patient was in left lateral decubitus with head up with bite-block in place. Please note that a timeout was already called and agreed to by all of the room prior to beginning the coloscopic procedure with no departures from the room or changes in patient and/or document custody. We proceeded to intubate the mouth noted the pharynx and the vocal cords and proceeded around to the esophagus without any complications or aberrations of anatomic note. The esophagus was appreciated with no immediately ascertainable esophagitis. We entered the stomach which was noted for extensive phytobezoar-like material which required extensive aspiration and irrigation. There was extensive inflammation noted at the antrum which was planned for biopsy. We carefully intubated the pylorus which was to some degree narrow likely from chronic inflammatory changes of the level of the antrum consistent with chronic antritis. Ultimately we intubated the pylorus and entered the duodenum which was without any concerns for active duodenitis random biopsies taken with no hemorrhage appreciated. On the way out we proceeded to reevaluate the pylorus and antrum as per below. There was an area of small occult bleeding that we biopsied as part of our an tral sampling. This was performed with cold forceps without any complication. The area of mild ooze was doubly clipped and hemostatic at the conclusion of this endoscopic evaluation. We proceeded to perform random gastric biopsies without any incident. The phytobezoar-like material was carefully irrigated and aspirated to prevent any risk of aspiration in this patient with multiple comorbid states. We ultimately were able to achieve this and essentially irrigate out this extensive material of foreign body which was also noted within the terminal ileum and at the level of the cecum. We performed retroflexion with no other concerning features other than diffuse gastritis. On withdrawal we reevaluated the esophagus which was performed for biopsy at the level of the GE junction. Patient tolerated procedure well which was no complication patient was planned to be returned to floor and monitored. Please see progress note for recommendations going forward which were discussed in person by phone and through progress note through the EMR with the hospital service. Additional findings are as per below: 1. Narrow pylorus requiring careful traversal however no significant stenosis preempting intubation 2. Pylorus again intubated, duodenum with no duodenitis no blood appreciated. Random biopsies obtained. 3. Extensive diffuse gastritis with antral inflammatory changes for which 2 clips were applied 4. No large masses or ulcers appreciated. Again extensive phytobezoar that was irrigated and aspirated. 5. Esophagus evaluated without any varices, no esophagitis. Random biopsies obtained. 6. Extensive phytobezoar disrupted and irrigated and aspirated surprising given the patient's n.p.o. status and bowel prep 7. Antral and gastric biopsies obtained. Patient tolerated well. Please note that voice recognition software was used to transcribe this note and inadvertent errors might persist in spite of review and editing. I am obliged to you for your attention. I am thankful to you for allowing me to participate with you in this care of this patient.
== END 2020-02-29 12:21 | disposition home or self-care (01) | DRG 378 ==
LOC: EDUNIT# → ED 11:43 → MS2 14:15 → OBSVTOIN 02-27 10:23
PROVIDERS: ADMIT Nurse Practitioner Gerontology; ATTEND Nurse Practitioner Gerontology
PROC: 0DC48ZZ Extirpation of Matter from Esophagogastric Junction, Via Natural or Artificial Opening Endoscopic (ICD-10-PCS; principal; 2020-02-26)
PROC: 0W3P8ZZ Control Bleeding in Gastrointestinal Tract, Via Natural or Artificial Opening Endoscopic (ICD-10-PCS; 2020-02-26)
PROC: 0DB98ZX Excision of Duodenum, Via Natural or Artificial Opening Endoscopic, Diagnostic (ICD-10-PCS; 2020-02-26)
PROC: 0DB78ZX Excision of Stomach, Pylorus, Via Natural or Artificial Opening Endoscopic, Diagnostic (ICD-10-PCS; 2020-02-26)
PROC: 0DB58ZX Excision of Esophagus, Via Natural or Artificial Opening Endoscopic, Diagnostic (ICD-10-PCS; 2020-02-26)
DX: D64.9 Anemia, unspecified (principal); K92.2 Gastrointestinal hemorrhage, unspecified; K29.51 Unspecified chronic gastritis with bleeding; I11.0 Hypertensive heart disease with heart failure; D62 Acute posthemorrhagic anemia; I13.0 Hypertensive heart and chronic kidney disease with heart failure and stage 1 through stage 4 chronic kidney disease, or unspecified chronic kidney disease; I48.91 Unspecified atrial fibrillation; N17.9 Acute kidney failure, unspecified; N18.9 Chronic kidney disease, unspecified; I50.9 Heart failure, unspecified; K57.30 Diverticulosis of large intestine without perforation or abscess without bleeding; T18.2XXA Foreign body in stomach, initial encounter; X58.XXXA Exposure to other specified factors, initial encounter; D50.9 Iron deficiency anemia, unspecified; K21.9 Gastro-esophageal reflux disease without esophagitis; R79.1 Abnormal coagulation profile; I25.10 Atherosclerotic heart disease of native coronary artery without angina pectoris; G47.30 Sleep apnea, unspecified; E03.9 Hypothyroidism, unspecified; F31.9 Bipolar disorder, unspecified; M10.9 Gout, unspecified; G89.29 Other chronic pain; M54.9 Dorsalgia, unspecified; R32 Unspecified urinary incontinence; H54.7 Unspecified visual loss; H91.90 Unspecified hearing loss, unspecified ear; Z96.649 Presence of unspecified artificial hip joint; Z79.01 Long term (current) use of anticoagulants; Z79.82 Long term (current) use of aspirin; Z79.899 Other long term (current) drug therapy; Z95.2 Presence of prosthetic heart valve; I25.2 Old myocardial infarction; Z86.010 Personal history of colon polyps; Z95.810 Presence of automatic (implantable) cardiac defibrillator
CPT/HCPCS: 36415; 36430; 71045; 80048; 80053; 80162; 82607; 82728; 83540; 83615; 83690; 83735; 84443; 84466; 85014; 85018; 85025; 85045; 85610; 85730; 86850; 86900; 86901; 86920; 87631; 96361; 96374; 96376; 99285; A9270; G0378; J1650; J7120; J8499; P9016; 0202U

== ENCOUNTER 2020-03-04 14:00 | Outpatient (CLI) | payer MEDICARE, OTHER ==
[2020-03-04 19:46] LABS: BASOPHILS % (AUTO) 0.2 %; EOSINOPHILS # (AUTO) 0.1 10^3/uL (0.0-0.7); EOSINOPHILS % (AUTO) 2.2 %; HGB - HEMOGLOBIN 10.7 g/dL (14.0-18.0); LYMPHOCYTES # (AUTO) 1.1 10^3/uL (1.5-3.5); LYMPHOCYTES % (AUTO) 21.8 %; MEAN CORPUSCULAR HEMOGLOBIN 30.1 pg (27.0-31.0); MEAN CORPUSCULAR HGB CONC 31.8 g/dL (32.0-36.0); MEAN CORPUSCULAR VOLUME 94.7 fL (80.0-94.0); MEAN PLATELET VOLUME 9.7 fL (7.4-11.4); MONOCYTES # (AUTO) 0.5 10^3/uL (0.0-1.0); MONOCYTES % (AUTO) 10.8 %; NEUTROPHILS # (AUTO) 3.2 10^3/uL (1.5-6.6); NEUTROPHILS % (AUTO) 64.2 %; PLT - PLATELET COUNT 199 10^3/uL (130-450); RED BLOOD COUNT 3.56 10^6/uL (4.70-6.10); RED CELL DISTRIBUTION WIDTH 16.7 % (12.0-15.0); WHITE BLOOD COUNT 4.9 x10^3/uL (4.8-10.8)
[2020-03-04 20:17] LABS: CALCIUM 8.8 mg/dL (8.5-10.3)
== END 2020-03-04 14:01 | disposition home or self-care (01) ==
LOC: LAB.S 14:00
PROVIDERS: ATTEND Nurse Practitioner Family
DX: N18.30 Chronic kidney disease, stage 3 unspecified (principal); D63.1 Anemia in chronic kidney disease; Z79.01 Long term (current) use of anticoagulants
CPT/HCPCS: 36415; 80048; 82728; 83540; 84466; 85025; 85610; 85730

== ENCOUNTER 2020-03-11 09:48 | Outpatient (CLI) | payer MEDICARE, OTHER | END 2020-03-11 09:49 | disposition home or self-care (01) | LOC: LAB.S 09:48 | PROVIDERS: ATTEND Internal Medicine Cardiovascular Disease | DX: I48.91 Unspecified atrial fibrillation (principal); Z95.4 Presence of other heart-valve replacement | CPT/HCPCS: 85610 ==

== ENCOUNTER 2020-03-22 11:03 | Outpatient (CLI) | payer MEDICARE, OTHER | END 2020-03-22 11:04 | disposition home or self-care (01) | LOC: LAB.S 11:03 | PROVIDERS: ATTEND Internal Medicine Cardiovascular Disease | DX: I48.91 Unspecified atrial fibrillation (principal); Z95.4 Presence of other heart-valve replacement | CPT/HCPCS: 85610 ==

== ENCOUNTER 2020-03-25 09:51 | Outpatient (CLI) | payer MEDICARE, OTHER ==
[2020-03-25 15:17] LABS: INR 1.8 (0.8-1.2); PT - PROTHROMBIN TIME 19.5 secs (9.9-12.6)
== END 2020-03-25 09:52 | disposition home or self-care (01) ==
LOC: LAB.S 09:51
PROVIDERS: ATTEND Internal Medicine Cardiovascular Disease
DX: I48.91 Unspecified atrial fibrillation (principal); Z95.4 Presence of other heart-valve replacement
CPT/HCPCS: 36415; 85610

== ENCOUNTER 2020-03-29 10:38 | Outpatient (CLI) | payer MEDICARE, OTHER | END 2020-03-29 10:39 | disposition home or self-care (01) | LOC: LAB.S 10:38 | PROVIDERS: ATTEND Internal Medicine Cardiovascular Disease | DX: I48.91 Unspecified atrial fibrillation (principal); Z95.4 Presence of other heart-valve replacement | CPT/HCPCS: 85610 ==

== ENCOUNTER 2020-04-02 11:25 | Outpatient (CLI) | payer MEDICARE, OTHER ==
[2020-04-02 14:47] LABS: BASOPHILS % (AUTO) 0.2 %; EOSINOPHILS # (AUTO) 0.1 10^3/uL (0.0-0.7); EOSINOPHILS % (AUTO) 2.5 %; LYMPHOCYTES % (AUTO) 23.5 %; MEAN CORPUSCULAR HEMOGLOBIN 29.9 pg (27.0-31.0); MEAN CORPUSCULAR HGB CONC 31.7 g/dL (32.0-36.0); MEAN CORPUSCULAR VOLUME 94.3 fL (80.0-94.0); MEAN PLATELET VOLUME 10.2 fL (7.4-11.4); MONOCYTES # (AUTO) 0.4 10^3/uL (0.0-1.0); MONOCYTES % (AUTO) 8.2 %; NEUTROPHILS # (AUTO) 2.9 10^3/uL (1.5-6.6); NEUTROPHILS % (AUTO) 65.1 %; PLT - PLATELET COUNT 145 10^3/uL (130-450); RED BLOOD COUNT 3.68 10^6/uL (4.70-6.10); RED CELL DISTRIBUTION WIDTH 15.7 % (12.0-15.0); WHITE BLOOD COUNT 4.4 x10^3/uL (4.8-10.8)
[2020-04-02 15:42] LABS: CALCIUM 8.9 mg/dL (8.5-10.3); CREATININE 1.8 mg/dL (0.6-1.2)
== END 2020-04-02 11:26 | disposition home or self-care (01) ==
LOC: LAB.S 11:25
PROVIDERS: ATTEND Nurse Practitioner Family
DX: N18.30 Chronic kidney disease, stage 3 unspecified (principal); D64.9 Anemia, unspecified; Z79.01 Long term (current) use of anticoagulants
CPT/HCPCS: 36415; 80048; 82728; 83540; 84466; 85025; 85610; 85730

== ENCOUNTER 2020-04-06 11:15 | Outpatient (CLI) | payer MEDICARE, OTHER | END 2020-04-06 11:16 | disposition home or self-care (01) | LOC: LAB.S 11:15 | PROVIDERS: ATTEND Internal Medicine Cardiovascular Disease | DX: I48.91 Unspecified atrial fibrillation (principal); Z95.4 Presence of other heart-valve replacement | CPT/HCPCS: 85610 ==

== ENCOUNTER 2020-04-15 12:49 | Outpatient (CLI) | payer MEDICARE, OTHER | END 2020-04-15 12:50 | disposition home or self-care (01) | LOC: LAB.S 12:49 | PROVIDERS: ATTEND Internal Medicine Cardiovascular Disease | DX: I48.91 Unspecified atrial fibrillation (principal); Z95.4 Presence of other heart-valve replacement | CPT/HCPCS: 85610 ==

== ENCOUNTER 2020-04-28 11:36 | Outpatient (CLI) | payer MEDICARE, OTHER | END 2020-04-28 11:37 | disposition home or self-care (01) | LOC: LAB.S 11:36 | PROVIDERS: ATTEND Internal Medicine Cardiovascular Disease | DX: I48.91 Unspecified atrial fibrillation (principal); Z95.4 Presence of other heart-valve replacement | CPT/HCPCS: 85610 ==

== ENCOUNTER 2020-05-19 11:21 | Outpatient (CLI) | payer MEDICARE, OTHER | END 2020-05-19 11:22 | disposition home or self-care (01) | LOC: LAB.S 11:21 | PROVIDERS: ATTEND Internal Medicine Cardiovascular Disease | DX: I48.91 Unspecified atrial fibrillation (principal); Z95.4 Presence of other heart-valve replacement | CPT/HCPCS: 85610 ==

== ENCOUNTER 2020-05-25 10:49 | Outpatient (CLI) | payer MEDICARE, OTHER | END 2020-05-25 10:50 | disposition home or self-care (01) | LOC: LAB.S 10:49 | PROVIDERS: ATTEND Internal Medicine Cardiovascular Disease | DX: I48.91 Unspecified atrial fibrillation (principal); Z95.4 Presence of other heart-valve replacement | CPT/HCPCS: 85610 ==

== ENCOUNTER 2020-05-26 12:26 | Outpatient (CLI) | payer MEDICARE, OTHER ==
[2020-05-26 14:27] LABS: BASOPHILS % (AUTO) 0.2 %; EOSINOPHILS # (AUTO) 0.1 10^3/uL (0.0-0.7); EOSINOPHILS % (AUTO) 1.7 %; HCT - HEMATOCRIT 35.8 % (42.0-52.0); HGB - HEMOGLOBIN 11.6 g/dL (14.0-18.0); LYMPHOCYTES # (AUTO) 1.2 10^3/uL (1.5-3.5); LYMPHOCYTES % (AUTO) 26.7 %; MEAN CORPUSCULAR HEMOGLOBIN 30.4 pg (27.0-31.0); MEAN CORPUSCULAR HGB CONC 32.4 g/dL (32.0-36.0); MEAN PLATELET VOLUME 10.3 fL (7.4-11.4); MONOCYTES # (AUTO) 0.4 10^3/uL (0.0-1.0); MONOCYTES % (AUTO) 9.3 %; NEUTROPHILS # (AUTO) 2.8 10^3/uL (1.5-6.6); NEUTROPHILS % (AUTO) 61.7 %; PLT - PLATELET COUNT 153 10^3/uL (130-450); RED BLOOD COUNT 3.81 10^6/uL (4.70-6.10); RED CELL DISTRIBUTION WIDTH 15.3 % (12.0-15.0); WHITE BLOOD COUNT 4.6 x10^3/uL (4.8-10.8)
== END 2020-05-26 12:27 | disposition home or self-care (01) ==
LOC: LAB.S 12:26
PROVIDERS: ATTEND Family Medicine
DX: D64.9 Anemia, unspecified (principal)
CPT/HCPCS: 36415; 85025

== ENCOUNTER 2020-06-16 10:42 | Outpatient (CLI) | payer MEDICARE, OTHER | END 2020-06-16 10:43 | disposition home or self-care (01) | LOC: LAB.S 10:42 | PROVIDERS: ATTEND Internal Medicine Cardiovascular Disease | DX: I48.91 Unspecified atrial fibrillation (principal); Z95.4 Presence of other heart-valve replacement | CPT/HCPCS: 85610 ==

== ENCOUNTER 2020-06-17 10:34 | Outpatient (CLI) | payer MEDICARE, OTHER | END 2020-06-17 10:35 | disposition critical access hospital (66) | LOC: EMS 10:34 | DX: R53.1 Weakness (principal); R31.0 Gross hematuria | CPT/HCPCS: A0425; A0429 ==

== ENCOUNTER 2020-06-17 10:59 | Inpatient (IN) | payer MEDICARE, OTHER ==
--- NOTE | 2020-06-17 11:05 | ED Physician Documentation ---
PD HPI MALE - Stated complaint Stated Complaint: MALE - History obtained from History obtained from: Patient, EMS - History of Present Illness Timing - onset: Yesterday - Additional information Additional information: 79-year-old gentleman with history of recurrent UTI with sepsis developed some small hematuria last night and then confusion last night with some unsteadiness. He has had chills but no measured fevers. He actually feels better today than he did last night. PD PAST MEDICAL HISTORY - Past Medical History Cardiovascular: Congestive heart failure, Hypertension, Coronary artery disease, [place], Atrial fibrillation, Valve disorder Respiratory: Sleep apnea, CPAP use Neuro: None Endocrine/Autoimmune: HyPOthyroidism GI: GERD, GI bleed, Colon polyps : Incontinence, Other HEENT: Chronic vision loss, Chronic hearing loss, Other Psych: Depression, Bipolar disorder Musculoskeletal: Osteoarthritis, Gout, Chronic back pain Derm: Other - Past Surgical History Past Surgical History: Yes Ortho: Hip replacement, Shoulder arthroplasty, Amputation Cardiovascular: Valve replacement, Pacemaker, AICD, Cardiac catheterization, Angioplasty, Other HEENT: Cataracts Derm: Skin cancer surgery - Present Medications Home Medications: Ambulatory Orders Medication Instructions Recorded Confirmed Aspirin Chewable [[place] 81 mg PO DAILY 07/27/13 06/17/20 Aspirin] Diazepam 5 mg PO QPM PRN 07/27/13 06/17/20 Digoxin 125 mcg PO DAILY 07/27/13 06/17/20 Dutasteride [Avodart] 0.5 mg PO DAILY 07/27/13 06/17/20 Furosemide [Lasix] 40 mg PO DAILY 07/27/13 06/17/20 Levothyroxine [Synthroid] 75 mcg PO DAILY 07/27/13 06/17/20 Magnesium Chloride [Slo Mag] 64 mg PO BID 07/27/13 06/17/20 Sertraline HCl 100 mg PO BID 07/27/13 06/17/20 Temazepam 15 mg PO QPM PRN 07/27/13 06/17/20 Trospium Chloride [Sanctura] 60 mg PO DAILY MDD at NOON 07/27/13 06/17/20 Warfarin [Coumadin] 5 mg PO SUTUTHSA 07/27/13 06/17/20 allopurinoL [Allopurinol] 150 mg PO QPM 07/27/13 06/17/20 Cyanocobalamin/Folic Acid [Vitamin 1 tab PO DAILY 08/12/13 06/17/20 O11-Lvtio Acid Tablet] Warfarin [Coumadin] 2.5 mg PO MOWEFR 09/18/16 06/17/20 lisinopriL [Lisinopril] 5 mg PO DAILY 09/18/16 06/17/20 Calcium Carbonate/Vitamin D3 1 tab PO BID 02/27/20 06/17/20 [Calcium 500 mg-Vit D3 600 Unit] Metoprolol Succinate [Toprol Xl] 100 mg PO DAILY 02/27/20 06/17/20 Quetiapine Fumarate [Seroquel Xr] 300 mg PO QPM 02/27/20 06/17/20 Pantoprazole [Protonix] 40 mg PO QDAC #30 tablet 02/29/20 06/17/20 Hydrocodone/Acetaminophen [Vicodin 1 tab PO PRN 06/17/20 Hp 10-300 mg Tablet] - Allergies Allergies/Adverse Reactions: Allergies Allergy/AdvReac Type Severity Reaction Status Date / Time hydromorphone HCl * Allergy Severe Hallucinati Verified 06/17/20 11:10 [From Dilaudid] ons codeine Allergy Unknown Verified 06/17/20 11:10 duloxetine HCl * Allergy Anxiety Verified 06/17/20 11:10 [From Cymbalta] gabapentin [From Neurontin] Allergy Anxiety Verified 06/17/20 11:10 oxycodone HCl * Allergy Hallucinati Verified 06/17/20 11:10 [From OxyContin] ons - Social History Does the pt smoke?: No Smoking Status: Never smoker Does the pt drink ETOH?: Yes Does the pt have substance abuse?: No - Immunizations Immunizations are current?: Yes Immunizations: TDAP current <10years - POLST Patient has POLST: No PD ED PE NORMAL - Vitals Vital signs reviewed: Yes - General General: Alert and oriented X 3, No acute distress - HEENT HEENT: Other (Mostly edentulous without signs of active dental infection.) - Neck Neck: Supple, no meningeal sign, No bony TTP - Cardiac Cardiac: RRR, Other (3/6 systolic murmur) - Respiratory Respiratory: No respiratory distress, Other (rhonchi B bases) - Abdomen Abdomen: Soft, Non tender - Rectal Rectal: Other (Fairly dark firm stool in the vault, not overly melenic but pretty dark.) - Back Back: No CVA TTP, No spinal TTP - Derm Derm: Normal color, Warm and dry - Extremities Extremities: No edema - Neuro Neuro: Alert and oriented X 3, Normal speech Results - Vitals Vitals: Vital Signs - 24 hr 06/17/20 06/17/20 06/17/20 11:04 11:07 11:34 Temperature 36.4 C L 36.4 C L 36.5 C Heart Rate 77 77 78 Respiratory 18 18 16 Rate Blood Pressure 122/77 122/77 110/68 O2 Saturation 93 93 95 06/17/20 06/17/20 06/17/20 12:04 12:30 13:00 Temperature 36.6 C 36.5 C 36.6 C Heart Rate 75 80 76 Respiratory 15 14 14 Rate Blood Pressure 105/56 L 109/68 117/66 O2 Saturation 97 98 98 06/17/20 06/17/20 13:30 14:00 Temperature 36.7 C 36.4 C L Heart Rate 76 81 Respiratory 14 16 Rate Blood Pressure 117/57 L 101/68 O2 Saturation 96 97 Oxygen O2 Source Room air - Labs Labs: Microbiology 06/17/20 11:55 Occult Blood - Final Stool Laboratory Tests 06/17/20 06/17/20 06/17/20 11:27 11:27 11:27 WBC 3.6 L RBC 2.41 L Hgb 7.4 L Hct 22.6 L MCV 93.8 MCH 30.7 MCHC 32.7 RDW 15.3 H Plt Count 125 L MPV 9.5 Neut # (Auto) 2.2 Lymph # (Auto) 0.9 L Adams # (Auto) 0.4 Eos # (Auto) 0.1 Baso # (Auto) 0.0 Absolute Nucleated RBC 0.00 Nucleated RBC % 0.0 PT INR Sodium 136 Potassium 4.9 Chloride 104 Carbon Dioxide 23 Anion Gap 9.0 BUN 85 H* Creatinine 2.9 H Estimated GFR (MDRD) 21 L Glucose 128 H Lactic Acid 1.1 Calcium 8.7 Total Bilirubin 0.5 AST 23 ALT 18 Alkaline Phosphatase 49 Total Protein 7.2 Albumin 3.7 Globulin 3.5 Albumin/Globulin Ratio 1.1 Urine Color Urine Clarity Urine pH Ur Specific [place] Urine Protein Urine Glucose (UA) Urine Ketones Urine Occult Blood Urine Nitrite Urine Bilirubin Urine Urobilinogen Ur Leukocyte Esterase Urine RBC Urine WBC Ur Squamous Epith Cells Urine Bacteria Urine Culture Comments Last Dose Date Last Dose Time Digoxin Blood Type Antibody Screen Crossmatch IS Only 06/17/20 06/17/20 06/17/20 11:27 11:27 11:33 WBC RBC Hgb Hct MCV MCH MCHC RDW Plt Count MPV Neut # (Auto) Lymph # (Auto) Adams # (Auto) Eos # (Auto) Baso # (Auto) Absolute Nucleated RBC Nucleated RBC % PT 41.0 H INR 4.0 H Sodium Potassium Chloride Carbon Dioxide Anion Gap BUN Creatinine Estimated GFR (MDRD) Glucose Lactic Acid Calcium Total Bilirubin AST ALT Alkaline Phosphatase Total Protein Albumin Globulin Albumin/Globulin Ratio Urine Color YELLOW Urine Clarity CLEAR Urine pH 6.0 Ur Specific [place] 1.010 Urine Protein NEGATIVE Urine Glucose (UA) NEGATIVE Urine Ketones NEGATIVE Urine Occult Blood NEGATIVE Urine Nitrite NEGATIVE Urine Bilirubin NEGATIVE Urine Urobilinogen 0.2 (NORMAL) Ur Leukocyte Esterase NEGATIVE Urine RBC 0-5 Urine WBC 0-3 Ur Squamous Epith Cells FEW Squamous Urine Bacteria Rare Urine Culture Comments NOT INDICATED Last Dose Date unknown Last Dose Time unknown Digoxin 1.1 Blood Type Antibody Screen Crossmatch IS Only 06/17/20 12:17 WBC RBC Hgb Hct MCV MCH MCHC RDW Plt Count MPV Neut # (Auto) Lymph # (Auto) [place] # (Auto) Eos # (Auto) Baso # (Auto) Absolute Nucleated RBC Nucleated RBC % PT INR Sodium Potassium Chloride Carbon Dioxide Anion Gap BUN Creatinine Estimated GFR (MDRD) Glucose Lactic Acid Calcium Total Bilirubin AST ALT Alkaline Phosphatase Total Protein Albumin Globulin Albumin/Globulin Ratio Urine Color Urine Clarity Urine pH Ur Specific [place] Urine Protein Urine Glucose (UA) Urine Ketones Urine Occult Blood Urine Nitrite Urine Bilirubin Urine Urobilinogen Ur Leukocyte Esterase Urine RBC Urine WBC Ur Squamous Epith Cells Urine Bacteria Urine Culture Comments Last Dose Date Last Dose Time Digoxin Blood Type O POSITIVE Antibody Screen NEGATIVE Crossmatch IS Only See Detail PD MEDICAL DECISION MAKING - ED course ED course: This 79-year-old gentleman presents with nonspecific symptoms, he his suspected UTI but work-up here demonstrates evidence of probably an upper GI bleed with acute on chronic anemia and acute on chronic renal insufficiency. He is guaiac positive Here, and his hemodynamics are quite stable. Blood is readied and he was administered Protonix. Dr. Mansef will admit and I also spoke with the on-call surgeon, Dr. Esau who will consult. Departure - Departure Disposition: 66 [facility] DC/Xfer Clinical Impression: Supratherapeutic INR, GERARDO (acute kidney injury), Upper GI bleed, History of prosthetic heart valve Condition: Serious
[2020-06-17 11:37] LABS: BASOPHILS % (AUTO) 0.3 %; EOSINOPHILS # (AUTO) 0.1 10^3/uL (0.0-0.7); EOSINOPHILS % (AUTO) 2.8 %; HCT - HEMATOCRIT 22.6 % (42.0-52.0); HGB - HEMOGLOBIN 7.4 g/dL (14.0-18.0); LYMPHOCYTES # (AUTO) 0.9 10^3/uL (1.5-3.5); LYMPHOCYTES % (AUTO) 24.6 %; MEAN CORPUSCULAR HEMOGLOBIN 30.7 pg (27.0-31.0); MEAN CORPUSCULAR HGB CONC 32.7 g/dL (32.0-36.0); MEAN CORPUSCULAR VOLUME 93.8 fL (80.0-94.0); MEAN PLATELET VOLUME 9.5 fL (7.4-11.4); MONOCYTES # (AUTO) 0.4 10^3/uL (0.0-1.0); MONOCYTES % (AUTO) 10.1 %; NEUTROPHILS # (AUTO) 2.2 10^3/uL (1.5-6.6); NEUTROPHILS % (AUTO) 61.4 %; PLT - PLATELET COUNT 125 10^3/uL (130-450); RED BLOOD COUNT 2.41 10^6/uL (4.70-6.10); RED CELL DISTRIBUTION WIDTH 15.3 % (12.0-15.0); WHITE BLOOD COUNT 3.6 x10^3/uL (4.8-10.8)
[2020-06-17 11:42] LABS: BILIRUBIN,URINE NEGATIVE (NEGATIVE); GLUCOSE, URINE (UA) NEGATIVE (NEGATIVE); KETONES,URINE (UA) NEGATIVE (NEGATIVE); LEUKOCYTE ESTERASE, URINE NEGATIVE (NEGATIVE); NITRITE,URINE NEGATIVE (NEGATIVE); OCCULT BLOOD,URINE NEGATIVE (NEGATIVE); PROTEIN,URINE NEGATIVE (NEGATIVE); UROBILINOGEN,URINE 0.2 (NORMAL) E.U./dL (NORMAL)
[2020-06-17 11:47] LABS: CLARITY,URINE CLEAR (CLEAR)
[2020-06-17 11:52] LABS: ALBUMIN 3.7 g/dL (3.2-5.5); ALBUMIN/GLOBULIN RATIO 1.1 (1.0-2.2); BILIRUBIN,TOTAL 0.5 mg/dL (0.2-1.0); CALCIUM 8.7 mg/dL (8.5-10.3); CREATININE 2.9 mg/dL (0.6-1.2); POTASSIUM 4.9 mmol/L (3.5-5.0); TOTAL PROTEIN 7.2 g/dL (6.7-8.2)
[2020-06-17 11:57] LABS: BACTERIA,URINE Rare /HPF (None Seen); RBC,URINE 0-5 /HPF (0-5); SQUAMOUS EPITHELIAL CELL,UR FEW Squamous (<= Few); WBC,URINE 0-3 /HPF (0-3)
[2020-06-17] MEDS ORDERED: PANTOPRAZOLE 40 MG VIAL IVP STA (12:02)
[2020-06-17 12:06] LABS: DIGOXIN 1.1 ng/mL
--- NOTE | 2020-06-17 14:00 | CONSULTATION NOTE ---
Referring Provider Name of Referring Provider:: Curry Calloway Consult Date: 06/17/20 Chief Complaint - Chief Complaint Chief Complaint: Weakness History of Present Illness - Admitted From Admitted From:: ED - History of Present Illness HPI Comment/Other: 79-year-old man with past medical history of GI bleeding, prosthetic heart valve on Coumadin since 2003, Congestive heart failure, Hypertension, Coronary artery disease, [place], Atrial fibrillation, anemia, Sleep apnea on CPAP use, Hypothyroidism, GERD, chronic vision loss, chronic hearing loss, Major depression, bipolar disease, osteomyelitis, gout, chronic back pain, who presents ER complain of dark tarry stool and weakness. He initially reported he felt he had a urinary tract infection. He was seen and evaluated by the ER staff and found to be somewhat more anemic than usual with a hemoglobin of about 7.9 when his usual was around 11 and half as well as significantly volume contracted with an elevated BUN and creatinine.We last saw him in February and he underwent an EGD and colonoscopy on revealing a phytobezoar and gastritis.He feels like he has been taking adequate liquids at home and says he just thinks he just gradually got weaker.He has not seen any jessica blood in his stool.He does not feel like he is having more frequent stools than usual.He was very surprised to find out that his hemoglobin was low.He denies abdominal pain. He reports that his stomach felt "heavy" but not painful. History - Past Medical History Cardiovascular: reports: Congestive heart failure, Hypertension, Coronary artery disease, [place], Atrial fibrillation, Valve disorder Respiratory: reports: Sleep apnea, CPAP use Neuro: reports: None Endocrine/Autoimmune: reports: HyPOthyroidism GI: reports: GERD, GI bleed, Colon polyps : reports: Incontinence, Other HEENT: reports: Chronic vision loss, Chronic hearing loss, Other Psych: reports: Depression, Bipolar disorder Musculoskeletal: reports: Osteoarthritis, Gout, Chronic back pain Derm: reports: Other MRSA Hx?: No - Past Surgical History Ortho: reports: Hip replacement, Shoulder arthroplasty, Amputation Cardiovascular: reports: Valve replacement, Pacemaker, AICD, Cardiac catheterization, Angioplasty, Other HEENT: reports: Cataracts Derm: reports: Skin cancer surgery - Family & Social History Family History: Mother: , Father: Family History Comment/Other: Patient reported his father at age 83 because of complication from the heart failure, The same as his mother because of complication of heart failure she at the age 70. Social History Notes: Patient reported he live at [facility] With his , he denies history of cigarette smoker, alcohol or drug issue - POLST Patient has POLST: No Meds/Allgy - Home Medications Home Medications: Ambulatory Orders Medication Instructions Recorded Confirmed Aspirin Chewable [St Jimbo 81 mg PO DAILY 07/27/13 06/17/20 Aspirin] Diazepam 5 mg PO QPM PRN 07/27/13 06/17/20 Digoxin 125 mcg PO DAILY 07/27/13 06/17/20 Dutasteride [Avodart] 0.5 mg PO DAILY 07/27/13 06/17/20 Furosemide [Lasix] 40 mg PO DAILY 07/27/13 06/17/20 Levothyroxine [Synthroid] 75 mcg PO DAILY 07/27/13 06/17/20 Magnesium Chloride [Slo Mag] 64 mg PO BID 07/27/13 06/17/20 Sertraline HCl 100 mg PO BID 07/27/13 06/17/20 Temazepam 15 mg PO QPM PRN 07/27/13 06/17/20 Trospium Chloride [Sanctura] 60 mg PO DAILY MDD at NOON 07/27/13 06/17/20 Warfarin [Coumadin] 5 mg PO SUTUTHSA 07/27/13 06/17/20 allopurinoL [Allopurinol] 150 mg PO QPM 07/27/13 06/17/20 Cyanocobalamin/Folic Acid [Vitamin 1 tab PO DAILY 08/12/13 06/17/20 S58-Yrcza Acid Tablet] Warfarin [Coumadin] 2.5 mg PO MOWEFR 09/18/16 06/17/20 lisinopriL [Lisinopril] 5 mg PO DAILY 09/18/16 06/17/20 Calcium Carbonate/Vitamin D3 1 tab PO BID 02/27/20 06/17/20 [Calcium 500 mg-Vit D3 600 Unit] Metoprolol Succinate [Toprol Xl] 100 mg PO DAILY 02/27/20 06/17/20 Quetiapine Fumarate [Seroquel Xr] 300 mg PO QPM 02/27/20 06/17/20 Pantoprazole [Protonix] 40 mg PO QDAC #30 tablet 02/29/20 06/17/20 Hydrocodone/Acetaminophen [Vicodin 1 tab PO PRN 06/17/20 Hp 10-300 mg Tablet] - Allergies Allergies/Adverse Reactions: Allergies Allergy/AdvReac Type Severity Reaction Status Date / Time hydromorphone HCl * Allergy Severe Hallucinati Verified 06/17/20 11:10 [From Dilaudid] ons codeine Allergy Unknown Verified 06/17/20 11:10 duloxetine HCl * Allergy Anxiety Verified 06/17/20 11:10 [From Cymbalta] gabapentin [From Neurontin] Allergy Anxiety Verified 06/17/20 11:10 oxycodone HCl * Allergy Hallucinati Verified 06/17/20 11:10 [From OxyContin] ons Review of Systems - Constitutional Constitutional: reports: Fatigue, Weakness. denies: Fever, Chills, Malaise, Poor appetite - Cardiovascular Cariovascular: denies: Chest pain - Respiratory Respiratory: denies: Cough, Wheezing - Gastrointestinal Gastrointestinal: reports: Black stools. denies: Abdominal pain, Change in bowel habits, Rectal bleeding, Bloody stools, Nausea, Vomiting - Musculoskeletal Musculoskeletal: denies: Muscle pain - Integumentary Integumentary: denies: Rash - All Other Systems All Other Systems: reports: Reviewed and negative Exam - Vital Signs Reviewed Vital Signs: Yes Vital Signs: Vital Signs x48h Temp Pulse Resp BP Pulse Ox 06/17/20 13:30 36.7 C 76 14 117/57 L 96 06/17/20 13:00 36.6 C 76 14 117/66 98 06/17/20 12:30 36.5 C 80 14 109/68 98 06/17/20 12:04 36.6 C 75 15 105/56 L 97 06/17/20 11:34 36.5 C 78 16 110/68 95 06/17/20 11:07 36.4 C L 77 18 122/77 93 06/17/20 11:04 36.4 C L 77 18 122/77 93 - Physical Exam General Appearance: positive: No acute distress, Alert, Other (Comfortable and playing on his phone) Eyes Bilateral: positive: Normal inspection, PERRL, EOMI ENT: positive: ENT inspection nml, Pharynx nml, No signs of dehydration Neck: positive: Nml inspection, Thyroid nml, No JVD Respiratory: positive: Chest non-tender, No respiratory distress, Breath sounds nml Cardiovascular: positive: Regular rate & rhythm, No murmur Peripheral Pulses: positive: 0 Rectal: positive: Non-tender. negative: Mass Skin: positive: Warm, Dry Extremities: positive: Non-tender Neurologic/Psychiatric: positive: Oriented x3 Conclusion and Plan - Lab Results Microbiology Results 06/17/20 11:55 Stool Occult Blood - Final Laboratory Results 06/17/20 12:17: Blood Type O POSITIVE, Antibody Screen NEGATIVE, Crossmatch IS Only See Detail 06/17/20 11:33: Urine Color YELLOW, Urine Clarity CLEAR, Urine pH 6.0, Ur Specific [place] 1.010, Urine Protein NEGATIVE, Urine Glucose (UA) NEGATIVE, Urine Ketones NEGATIVE, Urine Occult Blood NEGATIVE, Urine Nitrite NEGATIVE, Urine Bilirubin NEGATIVE, Urine Urobilinogen 0.2 (NORMAL), Ur Leukocyte Esterase NEGATIVE, Urine RBC 0-5, Urine WBC 0-3, Ur Squamous Epith Cells FEW Squamous, Urine Bacteria Rare, Urine Culture Comments NOT INDICATED 06/17/20 11:27: Last Dose Date unknown, Last Dose Time unknown, Digoxin 1.1 06/17/20 11:27: PT 41.0 H, INR 4.0 H 06/17/20 11:27: Lactic Acid 1.1 06/17/20 11:27: Sodium 136, Potassium 4.9, Chloride 104, Carbon Dioxide 23, Anion Gap 9.0, BUN 85 H*, Creatinine 2.9 H, Estimated GFR (MDRD) 21 L, Glucose 128 H, Calcium 8.7, Total Bilirubin 0.5, AST 23, ALT 18, Alkaline Phosphatase 49, Total Protein 7.2, Albumin 3.7, Globulin 3.5, Albumin/Globulin Ratio 1.1 06/17/20 11:27: WBC 3.6 L, RBC 2.41 L, Hgb 7.4 L, Hct 22.6 L, MCV 93.8, MCH 30.7, MCHC 32.7, RDW 15.3 H, Plt Count 125 L, MPV 9.5, Neut # (Auto) 2.2, Lymph # (Auto) 0.9 L, [place] # (Auto) 0.4, Eos # (Auto) 0.1, Baso # (Auto) 0.0, Absolute Nucleated RBC 0.00, Nucleated RBC % 0.0 - Diagnostic Imaging Results Diagnostic Imaging Results Comments: No imaging to review - Diagnosis Diagnosis: Findings consistent with recurrent upper GI hemorrhage.Most likely gastritis. - Plan Plan: I do not know how much benefit a repeat endoscopy or esophagogastroduodenoscopy would provide for Mr. Alex.He almost certainly has recurrent gastritis. Considering he had a phytobezoar at last evaluation, it may benefit him to have a gastric emptying study.Certainly gastroparesis can manifest as recurrent gastritis.We are happy to follow along with you.Agree with all excellent plans per the medicine service
[2020-06-17] MEDS ORDERED: ONDANSETRON 4 MG/2 ML VIAL IVP PRN (14:03)
[2020-06-17] MEDS ORDERED: TEMAZEPAM 15 MG CAPSULE PO PRN (14:18)
[2020-06-17] MEDS ORDERED: diazePAM 5 MG TABLET PO PRN (14:18)
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
--- OUTSIDE RECORDS SUMMARY | 2020-06-17 14:30 | EXTERNAL MEDICAL SUMMARY RPT | Continuity of Care Document ---
:1940 Demographics Phone Unavailable Preferred Language Unknown Marital Status Unknown Yazdanism Affiliation Unknown Race Unknown Ethnic Group Unknown Author Organization [facility] Address [address] [phone] Phone Social History date description facility [id number]
[2020-06-17] MEDS ORDERED: SODIUM CHLORIDE 0.9% 1,000 ML IV SCH ×2 (15:00→15:18)
[2020-06-17 15:20] LABS: B. PARAPERTUSSIS- RESP PCR PAN NOT DETECTED; B. PERTUSSIS- RESP PCR PANEL NOT DETECTED; C. PNEUMONIAE- RESP PCR PANEL NOT DETECTED; CORONAVIRUS 229E-RESP PCR NOT DETECTED; CORONAVIRUS HKU1-RESP PCR NOT DETECTED; CORONAVIRUS NL63-RESP PCR NOT DETECTED; CORONAVIRUS OC43-RESP PCR NOT DETECTED; HUMAN METAPNEUMOVIRUS NOT DETECTED; INFLUENZA A- RESP PCR PANEL NOT DETECTED; INFLUENZA B - RESP PCR PANEL NOT DETECTED; M. PNEUMONIAE- RESP PCR PANEL NOT DETECTED; PARAINFLUENZA VIRUS 1 NOT DETECTED; PARAINFLUENZA VIRUS 2 NOT DETECTED; PARAINFLUENZA VIRUS 3 NOT DETECTED; PARAINFLUENZA VIRUS 4 NOT DETECTED; RHINOVIRUS/ENTEROVIRUS NOT DETECTED; RSV- RESP PCR PANEL NOT DETECTED; SARS-CoV-2 -RESP PCR PANEL NOT DETECTED
[2020-06-17] MEDS: SODIUM CHLORIDE FLUSH 0.9% 10 ML SYRINGE IVP SCH (17:14)
[2020-06-17] MEDS: SODIUM CHLORIDE 0.9% 1,000 ML IV SCH (17:14)
[2020-06-17] MEDS: SERTRALINE 50 MG TABLET PO SCH (21:33)
[2020-06-17] MEDS: QUEtiapine 100 MG TABLET PO SCH (21:33)
[2020-06-17] MEDS: PANTOPRAZOLE 40 MG VIAL IVP SCH (21:34)
[2020-06-17 22:33] LABS: HCT - HEMATOCRIT 24.9 % (42.0-52.0); HGB - HEMOGLOBIN 8.1 g/dL (14.0-18.0)
[2020-06-18 04:43] LABS: BASOPHILS % (AUTO) 0.2 %; EOSINOPHILS # (AUTO) 0.1 10^3/uL (0.0-0.7); EOSINOPHILS % (AUTO) 1.6 %; LYMPHOCYTES % (AUTO) 19.3 %; MEAN CORPUSCULAR HEMOGLOBIN 29.9 pg (27.0-31.0); MEAN CORPUSCULAR VOLUME 93.3 fL (80.0-94.0); MEAN PLATELET VOLUME 9.9 fL (7.4-11.4); MONOCYTES # (AUTO) 0.4 10^3/uL (0.0-1.0); MONOCYTES % (AUTO) 7.7 %; NEUTROPHILS # (AUTO) 3.5 10^3/uL (1.5-6.6); NEUTROPHILS % (AUTO) 70.8 %; PLT - PLATELET COUNT 130 10^3/uL (130-450); RED BLOOD COUNT 2.68 10^6/uL (4.70-6.10); RED CELL DISTRIBUTION WIDTH 15.5 % (12.0-15.0); WHITE BLOOD COUNT 4.9 x10^3/uL (4.8-10.8)
[2020-06-18 04:47] LABS: INR 3.8 (0.8-1.2); PT - PROTHROMBIN TIME 39.1 secs (9.9-12.6)
[2020-06-18 05:01] LABS: CALCIUM 8.6 mg/dL (8.5-10.3)
[2020-06-18] MEDS: SODIUM CHLORIDE 0.9% 1,000 ML IV SCH (05:15)
[2020-06-18] MEDS ORDERED: LEVOTHYROXINE 75 MCG TABLET PO SCH (07:00)
[2020-06-18] MEDS: SODIUM CHLORIDE FLUSH 0.9% 10 ML SYRINGE IVP SCH ×3 (07:53→17:02)
[2020-06-18] MEDS: MAGNESIUM OXIDE 400 MG TABLET PO SCH (07:55)
[2020-06-18] MEDS: ACETAMINOPHEN 325 MG TABLET PO PRN (07:55)
[2020-06-18] MEDS ORDERED: METOPROLOL SUCCINATE 50 MG TABLET PO SCH (09:00)
[2020-06-18] MEDS ORDERED: SODIUM CHLORIDE 0.9% 1,000 ML IV SCH (09:00)
[2020-06-18] MEDS: DIGOXIN 125 MCG TABLET PO SCH (09:24)
[2020-06-18] MEDS: SERTRALINE 50 MG TABLET PO SCH ×2 (09:24→21:54)
[2020-06-18] MEDS: PANTOPRAZOLE 40 MG VIAL IVP SCH ×2 (09:24→21:54)
[2020-06-18] MEDS: METOPROLOL SUCCINATE 50 MG TABLET PO SCH (09:33)
[2020-06-18] MEDS ORDERED: IOPAMIDOL-300 50 ML VIAL ONE (10:37)
--- NOTE | 2020-06-18 11:48 | PROVIDER PROGRESS NOTE ---
Subjective - General Admit Date: 06/17/20 Procedure Date: 02/27/20 Post Op Days: 112 Procedure Performed: EGD - Review of Systems General: positive: Weakness, Malaise. negative: Fever, Chills HEENT: positive: Headaches. negative: Visual changes Pulmonary: positive: No symptoms Cardiovascular: positive: No symptoms Gastrointestinal: positive: Nausea, Other (Severe reflux) Genitourinary: positive: No symptoms Musculoskeletal: positive: No symptoms Skin: positive: No symptoms All Other Systems: positive: Reviewed and negative - Other Other Information/Narrative: Mr. Alex reports he just doesn't feel well this morning. He reports he had a headache for most of the night and has "terrible heartburn". No further evidence of bleeding. Has passed a small amount of flatus . No vomiting. Transfused 1 Unit PRBCs yesterday and Hgb is stable. Objective - Patient Data Reviewed Vital Signs: Yes Vital Signs: Vital Signs x48h Temp Pulse Resp BP Pulse Ox 06/18/20 07:22 36.8 C 70 16 110/65 94 06/18/20 04:25 36.5 C 76 16 110/65 95 Weight: Weight 06/16/20 06/17/20 06/18/20 23:59 23:59 23:59 Weight (kg) 94.5 kg 94.5 kg Intake & Output: Intake and Output Totals x24h 06/16/20 06/17/20 06/18/20 23:59 23:59 23:59 Intake Total 1157 1000 Output Total 1650 1900 Balance -493 -900 - Lab Results Lab Results: 06/18/20 04:10 06/18/20 04:10 Other Lab Results: Lab Results x24hrs 06/18/20 06/18/20 06/18/20 Range/Units 04:10 04:10 04:10 WBC (4.8-10.8) x10^3/uL RBC (4.70-6.10) 10^6/uL Hgb (14.0-18.0) g/dL Hct (42.0-52.0) % MCV (80.0-94.0) fL MCH (27.0-31.0) pg MCHC (32.0-36.0) g/dL RDW (12.0-15.0) % Plt Count (130-450) 10^3/uL MPV (7.4-11.4) fL Neut # (Auto) (1.5-6.6) 10^3/uL Lymph # (Auto) (1.5-3.5) 10^3/uL Mellette # (Auto) (0.0-1.0) 10^3/uL Eos # (Auto) (0.0-0.7) 10^3/uL Baso # (Auto) (0.0-0.1) 10^3/uL Absolute Nucleated RBC x10^3/uL Nucleated RBC % /100WBC PT 39.1 H (9.9-12.6) secs INR 3.8 H (0.8-1.2) Sodium 138 (135-145) mmol/L Potassium 5.0 (3.5-5.0) mmol/L Chloride 109 (101-111) mmol/L Carbon Dioxide 21 (21-32) mmol/L Anion Gap 8.0 (6-13) BUN 66 H (6-20) mg/dL Creatinine 2.0 H (0.6-1.2) mg/dL Estimated GFR (MDRD) 32 L (>89) Glucose 103 H (70-100) mg/dL Lactic Acid (0.5-2.2) mmol/L Calcium 8.6 (8.5-10.3) mg/dL Total Bilirubin (0.2-1.0) mg/dL AST (10-42) IU/L ALT (10-60) IU/L Alkaline Phosphatase (42-121) IU/L Total Protein (6.7-8.2) g/dL Albumin (3.2-5.5) g/dL Globulin (2.1-4.2) g/dL Albumin/Globulin Ratio (1.0-2.2) TSH 5.81 H (0.34-5.60) uIU/mL Urine Color Urine Clarity (CLEAR) Urine pH (5.0-7.5) PH Ur Specific Gilbert (1.002-1.030) Urine Protein (NEGATIVE) mg/dL Urine Glucose (UA) (NEGATIVE) mg/dL Urine Ketones (NEGATIVE) mg/dL Urine Occult Blood (NEGATIVE) Urine Nitrite (NEGATIVE) Urine Bilirubin (NEGATIVE) Urine Urobilinogen (NORMAL) E.U./dL Ur Leukocyte Esterase (NEGATIVE) Urine RBC (0-5) /HPF Urine WBC (0-3) /HPF Ur Squamous Epith Cells (<= Few) Urine Bacteria (None Seen) /HPF Urine Culture Comments Nasal Adenovirus (PCR) Nasal B. parapertussis DNA (PCR) Nasal Coronavir 229E PCR Nasal Coronavir HKU1 PCR Nasal Coronavir NL63 PCR Nasal Coronavir OC43 PCR Nasal Enterovir/Rhinovir PCR Nasal Influenza B PCR Nasal Influenza A PCR Nasal Parainfluen 1 PCR Nasal Parainfluen 2 PCR Nasal Parainfluen 3 PCR Nasal Parainfluen 4 PCR Nasal RSV (PCR) Nasal B.pertussis DNA PCR Nasal C.pneumoniae (PCR) Raulito Human Metapneumo PCR Nasal M.pneumoniae (PCR) Nasal SARS-CoV-2 (PCR) Last Dose Date Last Dose Time Digoxin ng/mL Blood Type Antibody Screen Crossmatch IS Only 06/18/20 06/17/20 06/17/20 Range/Units 04:10 22:27 14:19 WBC 4.9 (4.8-10.8) x10^3/uL RBC 2.68 L (4.70-6.10) 10^6/uL Hgb 8.0 L 8.1 L (14.0-18.0) g/dL Hct 25.0 L 24.9 L (42.0-52.0) % MCV 93.3 (80.0-94.0) fL MCH 29.9 (27.0-31.0) pg MCHC 32.0 (32.0-36.0) g/dL RDW 15.5 H (12.0-15.0) % Plt Count 130 (130-450) 10^3/uL MPV 9.9 (7.4-11.4) fL Neut # (Auto) 3.5 (1.5-6.6) 10^3/uL Lymph # (Auto) 1.0 L (1.5-3.5) 10^3/uL Mellette # (Auto) 0.4 (0.0-1.0) 10^3/uL Eos # (Auto) 0.1 (0.0-0.7) 10^3/uL Baso # (Auto) 0.0 (0.0-0.1) 10^3/uL Absolute Nucleated RBC 0.00 x10^3/uL Nucleated RBC % 0.0 /100WBC PT (9.9-12.6) secs INR (0.8-1.2) Sodium (135-145) mmol/L Potassium (3.5-5.0) mmol/L Chloride (101-111) mmol/L Carbon Dioxide (21-32) mmol/L Anion Gap (6-13) BUN (6-20) mg/dL Creatinine (0.6-1.2) mg/dL Estimated GFR (MDRD) (>89) Glucose (70-100) mg/dL Lactic Acid (0.5-2.2) mmol/L Calcium (8.5-10.3) mg/dL Total Bilirubin (0.2-1.0) mg/dL AST (10-42) IU/L ALT (10-60) IU/L Alkaline Phosphatase (42-121) IU/L Total Protein (6.7-8.2) g/dL Albumin (3.2-5.5) g/dL Globulin (2.1-4.2) g/dL Albumin/Globulin Ratio (1.0-2.2) TSH (0.34-5.60) uIU/mL Urine Color Urine Clarity (CLEAR) Urine pH (5.0-7.5) PH Ur Specific Gilbert (1.002-1.030) Urine Protein (NEGATIVE) mg/dL Urine Glucose (UA) (NEGATIVE) mg/dL Urine Ketones (NEGATIVE) mg/dL Urine Occult Blood (NEGATIVE) Urine Nitrite (NEGATIVE) Urine Bilirubin (NEGATIVE) Urine Urobilinogen (NORMAL) E.U./dL Ur Leukocyte Esterase (NEGATIVE) Urine RBC (0-5) /HPF Urine WBC (0-3) /HPF Ur Squamous Epith Cells (<= Few) Urine Bacteria (None Seen) /HPF Urine Culture Comments Nasal Adenovirus (PCR) NOT DETECTED Nasal B. parapertussis DNA (PCR) NOT DETECTED Nasal Coronavir 229E PCR NOT DETECTED Nasal Coronavir HKU1 PCR NOT DETECTED Nasal Coronavir NL63 PCR NOT DETECTED Nasal Coronavir OC43 PCR NOT DETECTED Nasal Enterovir/Rhinovir PCR NOT DETECTED Nasal Influenza B PCR NOT DETECTED Nasal Influenza A PCR NOT DETECTED Nasal Parainfluen 1 PCR NOT DETECTED Nasal Parainfluen 2 PCR NOT DETECTED Nasal Parainfluen 3 PCR NOT DETECTED Nasal Parainfluen 4 PCR NOT DETECTED Nasal RSV (PCR) NOT DETECTED Nasal B.pertussis DNA PCR NOT DETECTED Nasal C.pneumoniae (PCR) NOT DETECTED Raulito Human Metapneumo PCR NOT DETECTED Nasal M.pneumoniae (PCR) NOT DETECTED Nasal SARS-CoV-2 (PCR) NOT DETECTED Last Dose Date Last Dose Time Digoxin ng/mL Blood Type Antibody Screen Crossmatch IS Only 06/17/20 06/17/20 06/17/20 Range/Units 12:17 11:33 11:27 WBC (4.8-10.8) x10^3/uL RBC (4.70-6.10) 10^6/uL Hgb (14.0-18.0) g/dL Hct (42.0-52.0) % MCV (80.0-94.0) fL MCH (27.0-31.0) pg MCHC (32.0-36.0) g/dL RDW (12.0-15.0) % Plt Count (130-450) 10^3/uL MPV (7.4-11.4) fL Neut # (Auto) (1.5-6.6) 10^3/uL Lymph # (Auto) (1.5-3.5) 10^3/uL Mellette # (Auto) (0.0-1.0) 10^3/uL Eos # (Auto) (0.0-0.7) 10^3/uL Baso # (Auto) (0.0-0.1) 10^3/uL Absolute Nucleated RBC x10^3/uL Nucleated RBC % /100WBC PT (9.9-12.6) secs INR (0.8-1.2) Sodium (135-145) mmol/L Potassium (3.5-5.0) mmol/L Chloride (101-111) mmol/L Carbon Dioxide (21-32) mmol/L Anion Gap (6-13) BUN (6-20) mg/dL Creatinine (0.6-1.2) mg/dL Estimated GFR (MDRD) (>89) Glucose (70-100) mg/dL Lactic Acid (0.5-2.2) mmol/L Calcium (8.5-10.3) mg/dL Total Bilirubin (0.2-1.0) mg/dL AST (10-42) IU/L ALT (10-60) IU/L Alkaline Phosphatase (42-121) IU/L Total Protein (6.7-8.2) g/dL Albumin (3.2-5.5) g/dL Globulin (2.1-4.2) g/dL Albumin/Globulin Ratio (1.0-2.2) TSH (0.34-5.60) uIU/mL Urine Color YELLOW Urine Clarity CLEAR (CLEAR) Urine pH 6.0 (5.0-7.5) PH Ur Specific Gilbert 1.010 (1.002-1.030) Urine Protein NEGATIVE (NEGATIVE) mg/dL Urine Glucose (UA) NEGATIVE (NEGATIVE) mg/dL Urine Ketones NEGATIVE (NEGATIVE) mg/dL Urine Occult Blood NEGATIVE (NEGATIVE) Urine Nitrite NEGATIVE (NEGATIVE) Urine Bilirubin NEGATIVE (NEGATIVE) Urine Urobilinogen 0.2 (NORMAL) (NORMAL) E.U./dL Ur Leukocyte Esterase NEGATIVE (NEGATIVE) Urine RBC 0-5 (0-5) /HPF Urine WBC 0-3 (0-3) /HPF Ur Squamous Epith Cells FEW Squamous (<= Few) Urine Bacteria Rare (None Seen) /HPF Urine Culture Comments NOT INDICATED Nasal Adenovirus (PCR) Nasal B. parapertussis DNA (PCR) Nasal Coronavir 229E PCR Nasal Coronavir HKU1 PCR Nasal Coronavir NL63 PCR Nasal Coronavir OC43 PCR Nasal Enterovir/Rhinovir PCR Nasal Influenza B PCR Nasal Influenza A PCR Nasal Parainfluen 1 PCR Nasal Parainfluen 2 PCR Nasal Parainfluen 3 PCR Nasal Parainfluen 4 PCR Nasal RSV (PCR) Nasal B.pertussis DNA PCR Nasal C.pneumoniae (PCR) Raulito Human Metapneumo PCR Nasal M.pneumoniae (PCR) Nasal SARS-CoV-2 (PCR) Last Dose Date unknown Last Dose Time unknown Digoxin 1.1 ng/mL Blood Type O POSITIVE Antibody Screen NEGATIVE Crossmatch IS Only See Detail 06/17/20 06/17/20 06/17/20 Range/Units 11:27 11:27 11:27 WBC (4.8-10.8) x10^3/uL RBC (4.70-6.10) 10^6/uL Hgb (14.0-18.0) g/dL Hct (42.0-52.0) % MCV (80.0-94.0) fL MCH (27.0-31.0) pg MCHC (32.0-36.0) g/dL RDW (12.0-15.0) % Plt Count (130-450) 10^3/uL MPV (7.4-11.4) fL Neut # (Auto) (1.5-6.6) 10^3/uL Lymph # (Auto) (1.5-3.5) 10^3/uL Mellette # (Auto) (0.0-1.0) 10^3/uL Eos # (Auto) (0.0-0.7) 10^3/uL Baso # (Auto) (0.0-0.1) 10^3/uL Absolute Nucleated RBC x10^3/uL Nucleated RBC % /100WBC PT 41.0 H (9.9-12.6) secs INR 4.0 H (0.8-1.2) Sodium 136 (135-145) mmol/L Potassium 4.9 (3.5-5.0) mmol/L Chloride 104 (101-111) mmol/L Carbon Dioxide 23 (21-32) mmol/L Anion Gap 9.0 (6-13) BUN 85 H* (6-20) mg/dL Creatinine 2.9 H (0.6-1.2) mg/dL Estimated GFR (MDRD) 21 L (>89) Glucose 128 H (70-100) mg/dL Lactic Acid 1.1 (0.5-2.2) mmol/L Calcium 8.7 (8.5-10.3) mg/dL Total Bilirubin 0.5 (0.2-1.0) mg/dL AST 23 (10-42) IU/L ALT 18 (10-60) IU/L Alkaline Phosphatase 49 (42-121) IU/L Total Protein 7.2 (6.7-8.2) g/dL Albumin 3.7 (3.2-5.5) g/dL Globulin 3.5 (2.1-4.2) g/dL Albumin/Globulin Ratio 1.1 (1.0-2.2) TSH (0.34-5.60) uIU/mL Urine Color Urine Clarity (CLEAR) Urine pH (5.0-7.5) PH Ur Specific Gilbert (1.002-1.030) Urine Protein (NEGATIVE) mg/dL Urine Glucose (UA) (NEGATIVE) mg/dL Urine Ketones (NEGATIVE) mg/dL Urine Occult Blood (NEGATIVE) Urine Nitrite (NEGATIVE) Urine Bilirubin (NEGATIVE) Urine Urobilinogen (NORMAL) E.U./dL Ur Leukocyte Esterase (NEGATIVE) Urine RBC (0-5) /HPF Urine WBC (0-3) /HPF Ur Squamous Epith Cells (<= Few) Urine Bacteria (None Seen) /HPF Urine Culture Comments Nasal Adenovirus (PCR) Nasal B. parapertussis DNA (PCR) Nasal Coronavir 229E PCR Nasal Coronavir HKU1 PCR Nasal Coronavir NL63 PCR Nasal Coronavir OC43 PCR Nasal Enterovir/Rhinovir PCR Nasal Influenza B PCR Nasal Influenza A PCR Nasal Parainfluen 1 PCR Nasal Parainfluen 2 PCR Nasal Parainfluen 3 PCR Nasal Parainfluen 4 PCR Nasal RSV (PCR) Nasal B.pertussis DNA PCR Nasal C.pneumoniae (PCR) Raulito Human Metapneumo PCR Nasal M.pneumoniae (PCR) Nasal SARS-CoV-2 (PCR) Last Dose Date Last Dose Time Digoxin ng/mL Blood Type Antibody Screen Crossmatch IS Only - Current Medications Current Medications: Current Medications Generic Name Dose Route Start Last Admin Trade Name Freq PRN Reason Stop Dose Admin Acetaminophen 650 mg 06/17/20 14:03 06/18/20 07:55 Acetaminophen 325 Mg Tablet PO 650 mg Q4HR PRN Administration Pain 1 to 4 Diazepam 5 mg 06/17/20 14:18 06/17/20 23:23 Diazepam 5 Mg Tablet PO 5 mg QPM PRN Administration Spasms Digoxin 125 mcg 06/18/20 09:00 06/18/20 09:24 Digoxin 125 Mcg Tablet PO 125 mcg DAILY ANGELIQUE Administration Sodium Chloride 1,000 mls @ 83.333 mls/hr 06/18/20 09:00 06/18/20 11:03 Normal Saline 0.9% IV 06/19/20 08:59 83.333 mls/hr .Q12H ANGELIQUE Administration Magnesium Oxide 400 mg 06/18/20 08:00 06/18/20 07:55 Magnesium Oxide 400 Mg Tablet PO 400 mg DAILYWM ANGELIQUE Administration Metoprolol Succinate 100 mg 06/18/20 09:00 06/18/20 09:33 Metoprolol Succinate 50 Mg Tablet PO 100 mg DAILY ANGELIQUE Administration Pantoprazole Sodium 40 mg 06/17/20 21:00 06/18/20 09:24 Pantoprazole 40 Mg Vial IVP 40 mg BID ANGELIQUE Administration Quetiapine Fumarate 300 mg 06/17/20 21:00 06/17/20 21:33 Quetiapine 100 Mg Tablet PO 300 mg QPM ANGELIQUE Administration Sertraline HCl 100 mg 06/17/20 21:00 06/18/20 09:24 Sertraline 50 Mg Tablet PO 100 mg BID ANGELIQUE Administration Sodium Chloride 10 ml 06/17/20 17:00 06/18/20 09:34 Sodium Chloride Flush 0.9% 10 Ml Syringe IVP Not Given 0100,0900,1700 ANGELIQUE - Physical Exam Abdomen: positive: Tenderness (Very mild epigastric tenderness to palpation). negative: Guarding, Rebound Neurologic/Psychiatric: positive: Oriented x3 ABX Reporting Has patient been on IV antibiotics over the past 48 hours?: No Impression/Plan - Problem List Problem List: I spoke with Mr. Alex and Hospitalist service. EGD in Feb showed a possible narrowing of the upper GI tract. I have recommended clear liquid diet an CT with PO contrast today. Dr. Patel will be following over the weekend and knows the patient. Further recommendations after CT resulted.
[2020-06-18 11:58] LABS: HCT - HEMATOCRIT 24.4 % (42.0-52.0); HGB - HEMOGLOBIN 7.9 g/dL (14.0-18.0)
[2020-06-18 12:11] LABS: CALCIUM 8.5 mg/dL (8.5-10.3); CREATININE 1.7 mg/dL (0.6-1.2); POTASSIUM 5.1 mmol/L (3.5-5.0)
[2020-06-18] MEDS ORDERED: SODIUM POLYSTYRENE SULFONATE 15 GM/60 ML BOTTLE PO ONE (12:55)
--- NOTE | 2020-06-18 13:19 | CT Report ---
PROCEDURE: Abdomen/Pelvis WO INDICATIONS: NARROW OR MASS AT PYLORUS TECHNIQUE: Noncontrast 5 mm thick sections acquired from the diaphragms to the symphysis. 5 mm coronal and sagi ttal reformats were then performed. For radiation dose reduction, the following was used: automated exposure control, adjustment of mA and/or kV according to patient size. COMPARISON: None. FINDINGS: Image quality: Excellent. ABDOMEN: Lung bases: Minimal left basilar pleural effusion. Borderline cardiomegaly, pacemaker, remote mitral valve surgery. Coronary artery calcifications. Solid organs: Liver and spleen are normal in size. Gallbladder is unremarkable. Pancreas is normal in contours. No adrenal nodules. Kidneys are normal in size, without hydronephrosis or nephrolithi asis. Peritoneum and bowel: Mild/borderline thickening of the antrum of the stomach. No evidence of gastric outlet obstruction. Unenhanced bowel loops demonstrate normal wall thickness and caliber. No free f luid or air. Mild sigmoid diverticulosis without evidence of diverticulitis. Nodes and vessels: No retroperitoneal or mesenteric adenopathy by size criteria. Aorta and inferior vena cava are normal in caliber. Diffuse atherosclerotic calcifications, involving the splenic vinnie ry, SMA, and predominantly the internal iliacs in the pelvis. Miscellaneous: No ventral hernias. PELVIS: Genitourinary: Bladder wall thickness is normal. Miscellaneous: Fat-containing right inguinal hernia. Bones: No suspicious bony lesions. No vertebral body compression fractures. Total left hip arthrop lasty. Severe right hip degenerative arthritis. Lumbar degenerative change. IMPRESSION: 1. Mild diffuse gastric antral wall thickening without evidence of gastric outlet obstruction. 2. No evidence of acute abdominal process. 3. Mild cardiomegaly, coronary artery disease. 4. Minimal left pleural effusion. 5. Generalized atherosclerosis. Reviewed by: Mike Choi MD on 06/18/2020 1:17 PM PDT Approved by: Mike Choi MD on 06/18/2020 1:17 PM PDT Station ID: [id number]
--- NOTE | 2020-06-18 13:33 | PROVIDER PROGRESS NOTE ---
Subjective - Prog Note Date Prog Note Date: 06/18/20 - Subjective Pt reports feeling: No change Subjective: pt report he has no much sleep on last night at hospital, even his bring his CPAP for him. pt has no bowel movement yet. pt had narrow pylorus, extensive phytobezoar and extensive gastritis in 4 months ago EGD. pt's report pt unintentionally lost about 43 pounds weight in last 6 months, surgeon recommend CT of abdomen/pelvis for pt. Current Medications - Current Medications Current Medications: Active Medications Acetaminophen (Acetaminophen 325 Mg Tablet) 650 mg PO Q4HR PRN PRN Reason: Pain 1 to 4 Last Admin: 06/18/20 07:55 Dose: 650 mg Documented by: Diazepam (Diazepam 5 Mg Tablet) 5 mg PO QPM PRN PRN Reason: Spasms Last Admin: 06/17/20 23:23 Dose: 5 mg Documented by: Digoxin (Digoxin 125 Mcg Tablet) 125 mcg PO DAILY [facility] Last Admin: 06/18/20 09:24 Dose: 125 mcg Documented by: Levothyroxine Sodium (Levothyroxine 88 Mcg Tablet) 88 mcg PO QDAC [facility] Magnesium Oxide (Magnesium Oxide 400 Mg Tablet) 400 mg PO DAILYWM [facility] Last Admin: 06/18/20 07:55 Dose: 400 mg Documented by: Metoprolol Succinate (Metoprolol Succinate 50 Mg Tablet) 100 mg PO DAILY [facility] Last Admin: 06/18/20 09:33 Dose: 100 mg Documented by: Ondansetron HCl (Ondansetron 4 Mg/2 Ml Vial) 4 mg IVP Q6HR PRN PRN Reason: Nausea / Vomiting Pantoprazole Sodium (Pantoprazole 40 Mg Vial) 40 mg IVP BID [facility] Last Admin: 06/18/20 09:24 Dose: 40 mg Documented by: Quetiapine Fumarate (Quetiapine 100 Mg Tablet) 300 mg PO QPM [facility] Last Admin: 06/17/20 21:33 Dose: 300 mg Documented by: Sertraline HCl (Sertraline 50 Mg Tablet) 100 mg PO BID [facility] Last Admin: 06/18/20 09:24 Dose: 100 mg Documented by: Sodium Chloride (Sodium Chloride Flush 0.9% 10 Ml Syringe) 10 ml IVP PRN PRN PRN Reason: NEEDED PER PROVIDER ORDERS Sodium Chloride (Sodium Chloride Flush 0.9% 10 Ml Syringe) 10 ml IVP 0100,0900,1700 ANGELIQUE Last Admin: 06/18/20 09:34 Dose: Not Given Documented by: Temazepam (Temazepam 15 Mg Capsule) 15 mg PO QPM PRN PRN Reason: Insomnia Aspirin Chewable [[place] Jimbo Aspirin] 81 mg PO DAILY 07/27/13 Diazepam 5 mg PO QPM PRN 07/27/13 Digoxin 125 mcg PO DAILY 07/27/13 Dutasteride [Avodart] 0.5 mg PO DAILY 07/27/13 Furosemide [Lasix] 40 mg PO DAILY 07/27/13 Levothyroxine [Synthroid] 75 mcg PO DAILY 07/27/13 Magnesium Chloride [Slo Mag] 64 mg PO BID 07/27/13 Sertraline HCl 100 mg PO BID 07/27/13 Temazepam 15 mg PO QPM PRN 07/27/13 Trospium Chloride [Sanctura] 60 mg PO DAILY MDD at NOON 07/27/13 Warfarin [Coumadin] 5 mg PO SUTUTHSA 07/27/13 allopurinoL [Allopurinol] 150 mg PO QPM 07/27/13 Cyanocobalamin/Folic Acid [Vitamin T71-Fapqo Acid Tablet] 1 tab PO DAILY 08/12/13 Warfarin [Coumadin] 2.5 mg PO MOWEFR 09/18/16 lisinopriL [Lisinopril] 5 mg PO DAILY 09/18/16 Calcium Carbonate/Vitamin D3 [Calcium 500 mg-Vit D3 600 Unit] 1 tab PO BID 02/27/20 Metoprolol Succinate [Toprol Xl] 100 mg PO DAILY 02/27/20 Quetiapine Fumarate [Seroquel Xr] 300 mg PO QPM 02/27/20 Hydrocodone/Acetaminophen [Vicodin Hp 10-300 mg Tablet] 1 tab PO PRN 06/17/20 Objective - Vital Signs/Intake & Output Vital Signs: Vital Signs x48h Temp Pulse Resp BP Pulse Ox 06/18/20 07:22 36.8 C 70 16 110/65 94 Intake & Output: Intake & Output 06/15/20 06/16/20 06/17/20 06/18/20 23:59 23:59 23:59 23:59 Intake Total 1157 1106.944 Output Total 1650 2175 Balance -493 -1068.056 - Objective General Appearance: positive: No acute distress, Alert. negative: Lethargic Eyes Bilateral: positive: Normal inspection, PERRL, No lid inflammation ENT: positive: ENT inspection nml, No signs of dehydration. negative: Purulent nasal drainage Neck: positive: Nml inspection, Trachea midline. negative: Thyromegaly, Tracheal deviation Respiratory: positive: Chest non-tender, No respiratory distress. negative: Wheezes, Rales Cardiovascular: positive: Regular rate & rhythm, Systolic murmur, Diastolic murmur. negative: Tachycardia, Bradycardia Peripheral Pulses: 2+ Radial (R), 2+ Radial (L) Abdomen: positive: Non-tender, Nml bowel sounds, No distention. negative: Tenderness Back: positive: Nml inspection Skin: positive: Color nml, No rash, Warm, Dry. negative: Cyanosis, Diaphoresis Extremities: positive: Non-tender, Full ROM, Nml appearance. negative: Calf tenderness Neurologic/Psychiatric: positive: Oriented x3, Sensation nml, Mood/affect nml. negative: Weakness, Sensory loss, Facial droop, Slurred/abnml speech, Depressed mood/affect - Lab Results Fish Bones: 06/18/20 11:55 06/18/20 11:55 Other Labs: Lab Results x24hrs 06/18/20 06/18/20 06/18/20 Range/Units 11:55 11:55 04:10 WBC (4.8-10.8) x10^3/uL RBC (4.70-6.10) 10^6/uL Hgb 7.9 L (14.0-18.0) g/dL Hct 24.4 L (42.0-52.0) % MCV (80.0-94.0) fL MCH (27.0-31.0) pg MCHC (32.0-36.0) g/dL RDW (12.0-15.0) % Plt Count (130-450) 10^3/uL MPV (7.4-11.4) fL Neut # (Auto) (1.5-6.6) 10^3/uL Lymph # (Auto) (1.5-3.5) 10^3/uL Bucks # (Auto) (0.0-1.0) 10^3/uL Eos # (Auto) (0.0-0.7) 10^3/uL Baso # (Auto) (0.0-0.1) 10^3/uL Absolute Nucleated RBC x10^3/uL Nucleated RBC % /100WBC PT (9.9-12.6) secs INR (0.8-1.2) Sodium 137 (135-145) mmol/L Potassium 5.1 H (3.5-5.0) mmol/L Chloride 108 (101-111) mmol/L Carbon Dioxide 22 (21-32) mmol/L Anion Gap 7.0 (6-13) BUN 54 H (6-20) mg/dL Creatinine 1.7 H (0.6-1.2) mg/dL Estimated GFR (MDRD) 39 L (>89) Glucose 113 H (70-100) mg/dL Calcium 8.5 (8.5-10.3) mg/dL TSH 5.81 H (0.34-5.60) uIU/mL Nasal Adenovirus (PCR) Nasal B. parapertussis DNA (PCR) Nasal Coronavir 229E PCR Nasal Coronavir HKU1 PCR Nasal Coronavir NL63 PCR Nasal Coronavir OC43 PCR Nasal Enterovir/Rhinovir PCR Nasal Influenza B PCR Nasal Influenza A PCR Nasal Parainfluen 1 PCR Nasal Parainfluen 2 PCR Nasal Parainfluen 3 PCR Nasal Parainfluen 4 PCR Nasal RSV (PCR) Nasal B.pertussis DNA PCR Nasal C.pneumoniae (PCR) Raul[place] Human Metapneumo PCR Nasal M.pneumoniae (PCR) Nasal SARS-CoV-2 (PCR) Blood Type Antibody Screen Crossmatch IS Only 06/18/20 06/18/20 06/18/20 Range/Units 04:10 04:10 04:10 WBC 4.9 (4.8-10.8) x10^3/uL RBC 2.68 L (4.70-6.10) 10^6/uL Hgb 8.0 L (14.0-18.0) g/dL Hct 25.0 L (42.0-52.0) % MCV 93.3 (80.0-94.0) fL MCH 29.9 (27.0-31.0) pg MCHC 32.0 (32.0-36.0) g/dL RDW 15.5 H (12.0-15.0) % Plt Count 130 (130-450) 10^3/uL MPV 9.9 (7.4-11.4) fL Neut # (Auto) 3.5 (1.5-6.6) 10^3/uL Lymph # (Auto) 1.0 L (1.5-3.5) 10^3/uL Bucks # (Auto) 0.4 (0.0-1.0) 10^3/uL Eos # (Auto) 0.1 (0.0-0.7) 10^3/uL Baso # (Auto) 0.0 (0.0-0.1) 10^3/uL Absolute Nucleated RBC 0.00 x10^3/uL Nucleated RBC % 0.0 /100WBC PT 39.1 H (9.9-12.6) secs INR 3.8 H (0.8-1.2) Sodium 138 (135-145) mmol/L Potassium 5.0 (3.5-5.0) mmol/L Chloride 109 (101-111) mmol/L Carbon Dioxide 21 (21-32) mmol/L Anion Gap 8.0 (6-13) BUN 66 H (6-20) mg/dL Creatinine 2.0 H (0.6-1.2) mg/dL Estimated GFR (MDRD) 32 L (>89) Glucose 103 H (70-100) mg/dL Calcium 8.6 (8.5-10.3) mg/dL TSH (0.34-5.60) uIU/mL Nasal Adenovirus (PCR) Nasal B. parapertussis DNA (PCR) Nasal Coronavir 229E PCR Nasal Coronavir HKU1 PCR Nasal Coronavir NL63 PCR Nasal Coronavir OC43 PCR Nasal Enterovir/Rhinovir PCR Nasal Influenza B PCR Nasal Influenza A PCR Nasal Parainfluen 1 PCR Nasal Parainfluen 2 PCR Nasal Parainfluen 3 PCR Nasal Parainfluen 4 PCR Nasal RSV (PCR) Nasal B.pertussis DNA PCR Nasal C.pneumoniae (PCR) Raulito Human Metapneumo PCR Nasal M.pneumoniae (PCR) Nasal SARS-CoV-2 (PCR) Blood Type Antibody Screen Crossmatch IS Only 06/17/20 06/17/20 06/17/20 Range/Units 22:27 14:19 12:17 WBC (4.8-10.8) x10^3/uL RBC (4.70-6.10) 10^6/uL Hgb 8.1 L (14.0-18.0) g/dL Hct 24.9 L (42.0-52.0) % MCV (80.0-94.0) fL MCH (27.0-31.0) pg MCHC (32.0-36.0) g/dL RDW (12.0-15.0) % Plt Count (130-450) 10^3/uL MPV (7.4-11.4) fL Neut # (Auto) (1.5-6.6) 10^3/uL Lymph # (Auto) (1.5-3.5) 10^3/uL Bucks # (Auto) (0.0-1.0) 10^3/uL Eos # (Auto) (0.0-0.7) 10^3/uL Baso # (Auto) (0.0-0.1) 10^3/uL Absolute Nucleated RBC x10^3/uL Nucleated RBC % /100WBC PT (9.9-12.6) secs INR (0.8-1.2) Sodium (135-145) mmol/L Potassium (3.5-5.0) mmol/L Chloride (101-111) mmol/L Carbon Dioxide (21-32) mmol/L Anion Gap (6-13) BUN (6-20) mg/dL Creatinine (0.6-1.2) mg/dL Estimated GFR (MDRD) (>89) Glucose (70-100) mg/dL Calcium (8.5-10.3) mg/dL TSH (0.34-5.60) uIU/mL Nasal Adenovirus (PCR) NOT DETECTED Nasal B. parapertussis DNA (PCR) NOT DETECTED Nasal Coronavir 229E PCR NOT DETECTED Nasal Coronavir HKU1 PCR NOT DETECTED Nasal Coronavir NL63 PCR NOT DETECTED Nasal Coronavir OC43 PCR NOT DETECTED Nasal Enterovir/Rhinovir PCR NOT DETECTED Nasal Influenza B PCR NOT DETECTED Nasal Influenza A PCR NOT DETECTED Nasal Parainfluen 1 PCR NOT DETECTED Nasal Parainfluen 2 PCR NOT DETECTED Nasal Parainfluen 3 PCR NOT DETECTED Nasal Parainfluen 4 PCR NOT DETECTED Nasal RSV (PCR) NOT DETECTED Nasal B.pertussis DNA PCR NOT DETECTED Nasal C.pneumoniae (PCR) NOT DETECTED Ra[place] Human Metapneumo PCR NOT DETECTED Nasal M.pneumoniae (PCR) NOT DETECTED Nasal SARS-CoV-2 (PCR) NOT DETECTED Blood Type O POSITIVE Antibody Screen NEGATIVE Crossmatch IS Only See Detail ABX Reporting Has patient been on IV antibiotics over the past 48 hours?: No Sepsis Event Note (H) - Evaluation Current Stage of Sepsis: Ruled out Assessment/Plan - Problem List (1) GI bleed Impression: 06/19 Patient had a 1 units blood transfusion but his hemoglobin after transfusion decreases slowly. Patient had no bowel movement yet. We will continue H&H monitor overnight, continue hold patient home meds baby aspirin. pt presented narrow pylorus in last EGD at 4 month ago and extensive phytobezoar and gastritis. GI surgeon plan no EGD at this time and recommend to have CT of abdome/pelvis. Also pt's report pt lost 43 lb in last 6 months unintentionally. [employer] report he can not do gastric empty study, because he did not have radio material yet. Tomorrow is weekend, so gastric empty study could not be done now, pt may followup with out-pt as needed. continue Protonic IV bid, continue soft low fibre diet. continue hold patient home meds baby aspirin Patient's occult blood is positive, hemoglobin is 7.4, drop significant from 11.6 about three weeks, Patient is taking Coumadin, patient's INR is 4.0 at admission. Patient was given 1 unit blood in the ER. We will hold Coumadin. Surgeon was consulted. But pt had EGD and Colonoscopy done about 4 months ago which show phytobezoar and gastritis. however pt still has significant elevated BUN 86. will hold Coumadin, and continue H&H to monitor hemoglobin. If pt's HGB is stable, pt may not need endoscopy at this time. continue Protonix intravenous twice daily, Continue supervisor laboratory (2) Anemia Conclusion/Plan: 06/18, Patient's hemoglobin had 8.1 then 8.0, then down to 7.9, after he had a 1 unit blood transfusion. Patient had no bowel movement yet. We will do anemia study, Continue Protonix intravenous, Continue H&H monitor, Hold home baby aspirin. hemoglobin is 7.4, drop significant from 11.6 about three weeks. It is likely caused by acute GI bleeding. At the same time we will do anemia study. Patient already had a 1 unit blood transfusion in the ER. We will continue H&H to monitor hemoglobin. continue hold Coumadin (3) [id number] kidney injury Conclusion/Plan: 416, improved, creatinine is down to as patient baseline 1.7. We will stop intravenous IV fluids, continue supervisor laboratory, Patient had low fiber diet. Patient creatinine 2.9, patient had a creatinine 1.7 about 1 years ago. Clinically patient present dehydration feature. We will give gently patient intravenous IV fluids, continue supervisor laboratory. pt also had hx of CHF and present significant Murmur, we are precaution of fluid overload as well. Hold home Lasix now. (4) History of Bioprosthetic Mitral heart valve Conclusion/Plan: 416, INR is 3.8 on today, continue check PT and INR, hold Coumadin on today as well. Patient has history of prosthetic heart mitral valve Replace, Patient take Coumadin in the home. Today's INR is 4.0, Superior therapeutic range. We will check continue check PT and INR. We will hold Coumadin now and continue check PT/INR, Advised patient follow-up his PCP To manage Patient's coagulation status And had coagulation study, and Balance the risk and benefit of anticoagulation medication. (5) Hx of congestive heart disease Conclusion/Plan: 416, echo is still pending Patient has history congestive heart failure. In 2018, his ECHO show 45% EF. pt also present significant murmur. patient has a home medication lisinopril, metoprolol, digoxin, and aspirin. We will hold aspirin and Coumadin, resume patient home BP medications. 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 Patient take digoxin, metoprolol we will resume. We will hold Coumadin now because of his GI bleed. Continue PT and INR study (7) Hypothyroidism Conclusion/Plan: 416, TSH is high, we will increase his Synthroid to 88 mcg daily Patient take Synthroid in the home, we will check a TSH (8) Bipolar 1 disorder Conclusion/Plan: stable, Patient has history of bipolar, and depression, will resume patient home medications (9) Presence of cardiac pacemaker pt had V-pacer, stable, will continue tele monitor as well.
[2020-06-18] MEDS: SODIUM CHLORIDE FLUSH 0.9% 10 ML SYRINGE IVP PRN (13:50)
[2020-06-18 14:38] LABS: ABSOLUTE RETICS # AUTO 0.104 10^6/uL (0.020-0.110); RED BLOOD COUNT 2.59 10^6/uL (4.70-6.10); RETICULOCYTE COUNT % (AUTO) 4.02 % (0.5-2.3)
[2020-06-18 14:57] LABS: % IRON SATURATION 9 % (20-50); IRON 32 ug/dL (45-182); TOTAL IRON BINDING CAPACITY 344 ug/dL (250-450); TRANSFERRIN 246 mg/dL (180-329)
[2020-06-18 15:12] LABS: FERRITIN 19.2 ng/mL (23.9-336.2)
[2020-06-18] MEDS: FERROUS GLUCONATE 324 MG TABLET PO SCH (17:01)
[2020-06-18 20:30] LABS: HCT - HEMATOCRIT 24.2 % (42.0-52.0); HGB - HEMOGLOBIN 7.9 g/dL (14.0-18.0)
[2020-06-18] MEDS: QUEtiapine 100 MG TABLET PO SCH (21:53)
[2020-06-19] MEDS: SODIUM CHLORIDE FLUSH 0.9% 10 ML SYRINGE IVP SCH ×3 (00:30→21:04)
[2020-06-19] MEDS: levoFLOXacin 500 MG/100 ML 500 MG/100 ML BAG IV SCH (03:20)
[2020-06-19] MEDS: SODIUM CHLORIDE FLUSH 0.9% 10 ML SYRINGE IVP PRN (03:20)
[2020-06-19] MEDS: LEVOTHYROXINE 88 MCG TABLET PO SCH (06:06)
[2020-06-19 06:09] LABS: BASOPHILS % (AUTO) 0.2 %; EOSINOPHILS # (AUTO) 0.1 10^3/uL (0.0-0.7); EOSINOPHILS % (AUTO) 1.7 %; HCT - HEMATOCRIT 24.3 % (42.0-52.0); HGB - HEMOGLOBIN 7.8 g/dL (14.0-18.0); LYMPHOCYTES # (AUTO) 0.9 10^3/uL (1.5-3.5); LYMPHOCYTES % (AUTO) 18.5 %; MEAN CORPUSCULAR HGB CONC 32.1 g/dL (32.0-36.0); MEAN CORPUSCULAR VOLUME 93.5 fL (80.0-94.0); MEAN PLATELET VOLUME 10.2 fL (7.4-11.4); MONOCYTES # (AUTO) 0.5 10^3/uL (0.0-1.0); MONOCYTES % (AUTO) 10.4 %; NEUTROPHILS # (AUTO) 3.3 10^3/uL (1.5-6.6); NEUTROPHILS % (AUTO) 68.8 %; PLT - PLATELET COUNT 139 10^3/uL (130-450); RED CELL DISTRIBUTION WIDTH 15.2 % (12.0-15.0); WHITE BLOOD COUNT 4.8 x10^3/uL (4.8-10.8)
[2020-06-19 06:10] LABS: INR 2.7 (0.8-1.2); PT - PROTHROMBIN TIME 28.4 secs (9.9-12.6)
[2020-06-19 06:16] LABS: CALCIUM 8.6 mg/dL (8.5-10.3); CREATININE 1.7 mg/dL (0.6-1.2); POTASSIUM 4.5 mmol/L (3.5-5.0)
--- NOTE | 2020-06-19 08:00 | PROVIDER PROGRESS NOTE ---
Assessment/Plan - Problem List (1) Bacteremia Assessment/Plan: Patient's blood culture grew E. coli. Source undetermined He is on Levaquin 500 mg IV every 24 hours. Sensitivities pending. Will discharge patient home with antibiotics for total of 2 weeks after sensitivities known. (3) GI bleed Assessment/Plan: Patient's hemoglobin has been stable at 7.9. He denies any blood in stool or dark tarry stool. We will continue to monitor. Continue Protonix. Will discontinue aspirin upon discharge. Patient had EGD and colonoscopy done about 4 months ago which showed phytobezoar and gastritis (4) History of prosthetic heart valve Assessment/Plan: Patient's INR today was 2.7. His Coumadin was resumed with a goal INR of 2.5- 3.5. (5) A-fib Assessment/Plan: On metoprolol succinate 100 mg p.o. daily and digoxin 125 mcg p.o. daily. On Coumadin INR today was 2.7. 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 We will continue to monitor. (7) Bipolar 1 disorder Assessment/Plan: On Seroquel 300 mg p.o. every afternoon. (8) Hx of congestive heart disease Assessment/Plan: Metoprolol succinate 100 mg p.o. daily and digoxin 125 mcg p.o. daily. (9) Hypothyroidism Assessment/Plan: Levothyroxine 88 mcg p.o. daily AC - Current Meds Current Meds: Current Medications Generic Name Dose Route Start Last Admin Trade Name Freq PRN Reason Stop Dose Admin Acetaminophen 650 mg 06/17/20 14:03 06/18/20 07:55 Acetaminophen 325 Mg Tablet PO 650 mg Q4HR PRN Administration Pain 1 to 4 Diazepam 5 mg 06/17/20 14:18 06/17/20 23:23 Diazepam 5 Mg Tablet PO 5 mg QPM PRN Administration Spasms Digoxin 125 mcg 06/18/20 09:00 06/18/20 09:24 Digoxin 125 Mcg Tablet PO 125 mcg DAILY ANGELIQUE Administration Ferrous Gluconate 324 mg 06/18/20 17:00 06/18/20 17:01 Ferrous Gluconate 324 Mg Tablet PO 324 mg DAILYWM ANGELIQUE Administration Levofloxacin 500 mg in 100 mls @ 100 mls/hr 06/19/20 03:00 06/19/20 04:20 Levaquin 500 Mg/100 Ml IV Infused Q24H ANGELIQUE Infusion Levothyroxine Sodium 88 mcg 06/19/20 07:00 06/19/20 06:06 Levothyroxine 88 Mcg Tablet PO 88 mcg QDAC ANGELIQUE Administration Magnesium Oxide 400 mg 06/18/20 08:00 06/18/20 07:55 Magnesium Oxide 400 Mg Tablet PO 400 mg DAILYWM ANGELIQUE Administration Metoprolol Succinate 100 mg 06/18/20 09:00 06/18/20 09:33 Metoprolol Succinate 50 Mg Tablet PO 100 mg DAILY ANGELIQUE Administration Pantoprazole Sodium 40 mg 06/17/20 21:00 06/18/20 21:54 Pantoprazole 40 Mg Vial IVP 40 mg BID ANGELIQUE Administration Quetiapine Fumarate 300 mg 06/17/20 21:00 06/18/20 21:53 Quetiapine 100 Mg Tablet PO 300 mg QPM ANGELIQUE Administration Sertraline HCl 100 mg 06/17/20 21:00 06/18/20 21:54 Sertraline 50 Mg Tablet PO 100 mg BID ANGELIQUE Administration Sodium Chloride 10 ml 06/17/20 14:03 06/19/20 03:20 Sodium Chloride Flush 0.9% 10 Ml Syringe IVP 10 ml PRN PRN Administration NEEDED PER PROVIDER ORDERS Sodium Chloride 10 ml 06/17/20 17:00 06/19/20 00:30 Sodium Chloride Flush 0.9% 10 Ml Syringe IVP 10 ml 0100,0900,1700 ANGELIQUE Administration - Lab Result Fish Bone Diagrams: 06/19/20 05:40 06/19/20 05:40 Subjective - Subjective Patient Reports: Other (Patient was resting comfortably in bed at time of exam. He denied chest pain, dyspnea, abdominal pain, fever or chills. His blood culture was positive for E. coli this morning.) Objective Vital Signs: Vital Signs - 24 hr 06/18/20 06/18/20 06/18/20 13:39 15:43 21:00 Temperature 36.6 C 36.5 C 37.3 C Heart Rate [ 85 91 76 Brachial] Respiratory 20 20 20 Rate Blood Pressure 116/68 129/63 120/67 [Right Brachial artery] O2 Saturation 97 95 98 06/19/20 06/19/20 00:00 03:43 Temperature 36.8 C 36.7 C Heart Rate [ 82 81 Brachial] Respiratory 18 18 Rate Blood Pressure 116/58 L 126/59 L [Right Brachial artery] O2 Saturation 95 99 Oxygen O2 Source Room air I&O (Last 24 Hrs): Intake and Output Totals x24h 06/17/20 06/18/20 06/19/20 23:59 23:59 23:59 Intake Total 1157 2202.944 100 Output Total 1650 2475 600 Balance -493 -272.056 -500 General: Alert, Oriented x3, No acute distress HEENT: PERRLA, EOMI Neck: Supple, No JVD Neuro: Alert, Non Focal, Oriented Times 3 Cardiovascular: Regular rate, Other (murmur noted) Respiratory: Chest non-tender, No respiratory distress, Breath sounds nml Abdomen: Normal bowel sounds, Soft, No tenderness Extremities: No clubbing, No cyanosis, No edema, No tenderness/swelling - Results Results: Laboratory Results WBC 4.8 x10^3/uL (4.8-10.8) 06/19/20 05:40 RBC 2.60 10^6/uL (4.70-6.10) L 06/19/20 05:40 Hgb 7.8 g/dL (14.0-18.0) L 06/19/20 05:40 Hct 24.3 % (42.0-52.0) L 06/19/20 05:40 MCV 93.5 fL (80.0-94.0) 06/19/20 05:40 MCH 30.0 pg (27.0-31.0) 06/19/20 05:40 MCHC 32.1 g/dL (32.0-36.0) 06/19/20 05:40 RDW 15.2 % (12.0-15.0) H 06/19/20 05:40 Plt Count 139 10^3/uL (130-450) 06/19/20 05:40 MPV 10.2 fL (7.4-11.4) 06/19/20 05:40 Reticulocyte % (Auto) 4.02 % (0.5-2.3) H 06/18/20 14:25 Neut # (Auto) 3.3 10^3/uL (1.5-6.6) 06/19/20 05:40 Lymph # (Auto) 0.9 10^3/uL (1.5-3.5) L 06/19/20 05:40 [place] # (Auto) 0.5 10^3/uL (0.0-1.0) 06/19/20 05:40 Eos # (Auto) 0.1 10^3/uL (0.0-0.7) 06/19/20 05:40 Baso # (Auto) 0.0 10^3/uL (0.0-0.1) 06/19/20 05:40 Absolute Nucleated RBC 0.00 x10^3/uL 06/19/20 05:40 Nucleated RBC % 0.0 /100WBC 06/19/20 05:40 Absolute Retic 0.104 10^6/uL (0.020-0.110) 06/18/20 14:25 PT 28.4 secs (9.9-12.6) H 06/19/20 05:40 INR 2.7 (0.8-1.2) H 06/19/20 05:40 Sodium 137 mmol/L (135-145) 06/19/20 05:40 Potassium 4.5 mmol/L (3.5-5.0) 06/19/20 05:40 Chloride 105 mmol/L (101-111) 06/19/20 05:40 Carbon Dioxide 23 mmol/L (21-32) 06/19/20 05:40 Anion Gap 9.0 (6-13) 06/19/20 05:40 BUN 45 mg/dL (6-20) H 06/19/20 05:40 Creatinine 1.7 mg/dL (0.6-1.2) H 06/19/20 05:40 Estimated GFR (MDRD) 39 (>89) L 06/19/20 05:40 Glucose 114 mg/dL (70-100) H 06/19/20 05:40 Lactic Acid 1.1 mmol/L (0.5-2.2) 06/17/20 11:27 Calcium 8.6 mg/dL (8.5-10.3) 06/19/20 05:40 Iron 32 ug/dL (45-182) L 06/18/20 14:25 TIBC 344 ug/dL (250-450) 06/18/20 14:25 % Saturation 9 % (20-50) L 06/18/20 14:25 Transferrin 246 mg/dL (180-329) 06/18/20 14:25 Ferritin 19.2 ng/mL (23.9-336.2) L 06/18/20 14:25 Total Bilirubin 0.5 mg/dL (0.2-1.0) 06/17/20 11:27 AST 23 IU/L (10-42) 06/17/20 11:27 ALT 18 IU/L (10-60) 06/17/20 11:27 Alkaline Phosphatase 49 IU/L (42-121) 06/17/20 11:27 Lactate Dehydrogenase 123 IU/L (91-225) 06/18/20 14:25 Troponin I High Sens 18.2 ng/L (2.3-19.7) 06/18/20 14:25 Total Protein 7.2 g/dL (6.7-8.2) 06/17/20 11:27 Albumin 3.7 g/dL (3.2-5.5) 06/17/20 11:27 Globulin 3.5 g/dL (2.1-4.2) 06/17/20 11:27 Albumin/Globulin Ratio 1.1 (1.0-2.2) 06/17/20 11:27 Vitamin B12 416 pg/mL (180-914) 06/18/20 14:25 TSH 5.81 uIU/mL (0.34-5.60) H 06/18/20 04:10 Urine Color YELLOW 06/17/20 11:33 Urine Clarity CLEAR (CLEAR) 06/17/20 11:33 Urine pH 6.0 PH (5.0-7.5) 06/17/20 11:33 Ur Specific [place] 1.010 (1.002-1.030) 06/17/20 11:33 Urine Protein NEGATIVE mg/dL (NEGATIVE) 06/17/20 11:33 Urine Glucose (UA) NEGATIVE mg/dL (NEGATIVE) 06/17/20 11:33 Urine Ketones NEGATIVE mg/dL (NEGATIVE) 06/17/20 11:33 Urine Occult Blood NEGATIVE (NEGATIVE) 06/17/20 11:33 Urine Nitrite NEGATIVE (NEGATIVE) 06/17/20 11:33 Urine Bilirubin NEGATIVE (NEGATIVE) 06/17/20 11:33 Urine Urobilinogen 0.2 (NORMAL) E.U./dL (NORMAL) 06/17/20 11:33 Ur Leukocyte Esterase NEGATIVE (NEGATIVE) 06/17/20 11:33 Urine RBC 0-5 /HPF (0-5) 06/17/20 11:33 Urine WBC 0-3 /HPF (0-3) 06/17/20 11:33 Ur Squamous Epith Cells FEW Squamous (<= Few) 06/17/20 11:33 Urine Bacteria Rare /HPF (None Seen) 06/17/20 11:33 Urine Culture Comments NOT INDICATED 06/17/20 11:33 Nasal Adenovirus (PCR) NOT DETECTED 06/17/20 14:19 Nasal B. parapertussis DNA (PCR) NOT DETECTED 06/17/20 14:19 Nasal Coronavir 229E PCR NOT DETECTED 06/17/20 14:19 Nasal Coronavir HKU1 PCR NOT DETECTED 06/17/20 14:19 Nasal Coronavir NL63 PCR NOT DETECTED 06/17/20 14:19 Nasal Coronavir OC43 PCR NOT DETECTED 06/17/20 14:19 Nasal Enterovir/Rhinovir PCR NOT DETECTED 06/17/20 14:19 Nasal Influenza B PCR NOT DETECTED 06/17/20 14:19 Nasal Influenza A PCR NOT DETECTED 06/17/20 14:19 Nasal Parainfluen 1 PCR NOT DETECTED 06/17/20 14:19 Nasal Parainfluen 2 PCR NOT DETECTED 06/17/20 14:19 Nasal Parainfluen 3 PCR NOT DETECTED 06/17/20 14:19 Nasal Parainfluen 4 PCR NOT DETECTED 06/17/20 14:19 Nasal RSV (PCR) NOT DETECTED 06/17/20 14:19 Nasal B.pertussis DNA PCR NOT DETECTED 06/17/20 14:19 Nasal C.pneumoniae (PCR) NOT DETECTED 06/17/20 14:19 [place]ito Human Metapneumo PCR NOT DETECTED 06/17/20 14:19 Nasal M.pneumoniae (PCR) NOT DETECTED 06/17/20 14:19 Nasal SARS-CoV-2 (PCR) NOT DETECTED 06/17/20 14:19 Last Dose Date unknown 06/17/20 11:27 Last Dose Time unknown 06/17/20 11:27 Digoxin 1.1 ng/mL 06/17/20 11:27 Blood Type O POSITIVE 06/17/20 12:17 Antibody Screen NEGATIVE 06/17/20 12:17 Crossmatch IS Only See Detail 06/17/20 12:17 - Procedures Procedures: Procedures CONTROL BLEEDING IN GASTROINTESTINAL TRACT, ENDO (02/27/20) EXCISION OF DUODENUM, ENDO, DIAGN (02/27/20) EXCISION OF ESOPHAGUS, ENDO, DIAGN (02/27/20) EXCISION OF STOMACH, PYLORUS, ENDO, DIAGN (02/27/20) EXTIRPATION OF MATTER FROM ESOPHAGOGASTRIC JUNCTION, ENDO (02/27/20) INSPECTION OF LOWER INTESTINAL TRACT, ENDO (02/27/20) PACKED CELL TRANSFUSION (08/04/13) Sepsis Event Note (H) - Evaluation Current Stage of Sepsis: Ruled out ABX Reporting Has patient been on IV antibiotics over the past 48 hours?: Yes
[2020-06-19] MEDS: PANTOPRAZOLE 40 MG VIAL IVP SCH ×2 (08:53→21:04)
[2020-06-19] MEDS: METOPROLOL SUCCINATE 50 MG TABLET PO SCH (08:53)
[2020-06-19] MEDS: DIGOXIN 125 MCG TABLET PO SCH (08:53)
[2020-06-19] MEDS: FERROUS GLUCONATE 324 MG TABLET PO SCH (08:54)
[2020-06-19] MEDS: MAGNESIUM OXIDE 400 MG TABLET PO SCH (08:54)
[2020-06-19] MEDS: SERTRALINE 50 MG TABLET PO SCH ×2 (08:54→21:03)
[2020-06-19] MEDS: WARFARIN 5 MG TABLET PO SCH (14:45)
[2020-06-19] MEDS: QUEtiapine 100 MG TABLET PO SCH (21:03)
[2020-06-20] MEDS: SODIUM CHLORIDE FLUSH 0.9% 10 ML SYRINGE IVP SCH ×3 (01:50→15:45)
[2020-06-20] MEDS: levoFLOXacin 500 MG/100 ML 500 MG/100 ML BAG IV SCH (03:09)
[2020-06-20 05:24] LABS: BASOPHILS % (AUTO) 0.2 %; EOSINOPHILS # (AUTO) 0.1 10^3/uL (0.0-0.7); EOSINOPHILS % (AUTO) 2.4 %; HCT - HEMATOCRIT 23.9 % (42.0-52.0); HGB - HEMOGLOBIN 7.6 g/dL (14.0-18.0); INR 2.2 (0.8-1.2); LYMPHOCYTES # (AUTO) 0.8 10^3/uL (1.5-3.5); LYMPHOCYTES % (AUTO) 17.1 %; MEAN CORPUSCULAR HEMOGLOBIN 30.5 pg (27.0-31.0); MEAN CORPUSCULAR HGB CONC 31.8 g/dL (32.0-36.0); MEAN PLATELET VOLUME 9.9 fL (7.4-11.4); MONOCYTES # (AUTO) 0.5 10^3/uL (0.0-1.0); MONOCYTES % (AUTO) 11.1 %; NEUTROPHILS # (AUTO) 3.1 10^3/uL (1.5-6.6); NEUTROPHILS % (AUTO) 68.8 %; PLT - PLATELET COUNT 133 10^3/uL (130-450); PT - PROTHROMBIN TIME 23.3 secs (9.9-12.6); RED BLOOD COUNT 2.49 10^6/uL (4.70-6.10); WHITE BLOOD COUNT 4.5 x10^3/uL (4.8-10.8)
[2020-06-20 05:29] LABS: CALCIUM 8.2 mg/dL (8.5-10.3); CREATININE 1.7 mg/dL (0.6-1.2); POTASSIUM 4.2 mmol/L (3.5-5.0)
[2020-06-20] MEDS: LEVOTHYROXINE 88 MCG TABLET PO SCH (05:57)
[2020-06-20] MEDS: PANTOPRAZOLE 40 MG VIAL IVP SCH ×2 (08:33→20:27)
[2020-06-20] MEDS: DIGOXIN 125 MCG TABLET PO SCH (08:39)
[2020-06-20] MEDS: METOPROLOL SUCCINATE 50 MG TABLET PO SCH (08:39)
[2020-06-20] MEDS: SERTRALINE 50 MG TABLET PO SCH ×2 (08:39→20:26)
[2020-06-20] MEDS: MAGNESIUM OXIDE 400 MG TABLET PO SCH (08:39)
[2020-06-20] MEDS: FERROUS GLUCONATE 324 MG TABLET PO SCH (08:39)
[2020-06-20] MEDS: WARFARIN 5 MG TABLET PO SCH (13:26)
--- NOTE | 2020-06-20 13:50 | PROVIDER PROGRESS NOTE ---
Assessment/Plan - Problem List (1) Bacteremia Assessment/Plan: Patient's blood culture grew E. coli. Source undetermined. Sensitivities pending He is on Levaquin 500 mg IV every 24 hours. WBC today was 4.6. Blood cultures repeated today Will discharge patient home with antibiotics for total of 2 weeks after sensitivities known. (2) Anemia Assessment/Plan: Hemoglobin today is 7.6. The patient denies blood in stool or dark tarry stools. However hemoglobin continues to slowly trickle down. Anticipating that the patient would need a blood transfusion prior to discharge. Continue Protonix. Will discontinue aspirin upon discharge. Patient had EGD and colonoscopy done about 4 months ago which showed phytobezoar and gastritis (3) GI bleed Assessment/Plan: Hemoglobin today is 7.6. The patient denies blood in stool or dark tarry stools. However hemoglobin continues to slowly trickle down. Anticipating that the patient would need a blood transfusion prior to discharge. Continue Protonix. Will discontinue aspirin upon discharge. Patient had EGD and colonoscopy done about 4 months ago which showed phytobezoar and gastritis (4) History of prosthetic heart valve Assessment/Plan: Patient's INR today was 2.2. His Coumadin was resumed with a goal INR of 2.5- 3.5. (6) [id number] kidney injury Assessment/Plan: Patient is back to baseline creatinine of 1.7. We will continue to monitor. (7) Bipolar 1 disorder Assessment/Plan: On Seroquel 300 mg p.o. every afternoon. (8) Hx of congestive heart disease Assessment/Plan: Metoprolol succinate 100 mg p.o. daily and digoxin 125 mcg p.o. daily. (9) Hypothyroidism Assessment/Plan: Levothyroxine 88 mcg p.o. daily AC - Current Meds Current Meds: Current Medications Generic Name Dose Route Start Last Admin Trade Name Freq PRN Reason Stop Dose Admin Acetaminophen 650 mg 06/17/20 14:03 06/18/20 07:55 Acetaminophen 325 Mg Tablet PO 650 mg Q4HR PRN Administration Pain 1 to 4 Diazepam 5 mg 06/17/20 14:18 06/17/20 23:23 Diazepam 5 Mg Tablet PO 5 mg QPM PRN Administration Spasms Digoxin 125 mcg 06/18/20 09:00 06/20/20 08:39 Digoxin 125 Mcg Tablet PO 125 mcg DAILY ANGELIQUE Administration Ferrous Gluconate 324 mg 06/18/20 17:00 06/20/20 08:39 Ferrous Gluconate 324 Mg Tablet PO 324 mg DAILYWM ANGELIQUE Administration Levofloxacin 500 mg in 100 mls @ 100 mls/hr 06/19/20 03:00 06/20/20 04:09 Levaquin 500 Mg/100 Ml IV Infused Q24H ANGELIQUE Infusion Levothyroxine Sodium 88 mcg 06/19/20 07:00 06/20/20 05:57 Levothyroxine 88 Mcg Tablet PO 88 mcg QDAC ANGELIQUE Administration Magnesium Oxide 400 mg 06/18/20 08:00 06/20/20 08:39 Magnesium Oxide 400 Mg Tablet PO 400 mg DAILYWM ANGELIQUE Administration Metoprolol Succinate 100 mg 06/18/20 09:00 06/20/20 08:39 Metoprolol Succinate 50 Mg Tablet PO 100 mg DAILY ANGELIQUE Administration Pantoprazole Sodium 40 mg 06/17/20 21:00 06/20/20 08:33 Pantoprazole 40 Mg Vial IVP 40 mg BID ANGELIQUE Administration Quetiapine Fumarate 300 mg 06/17/20 21:00 06/19/20 21:03 Quetiapine 100 Mg Tablet PO 300 mg QPM ANGELIQUE Administration Sertraline HCl 100 mg 06/17/20 21:00 06/20/20 08:39 Sertraline 50 Mg Tablet PO 100 mg BID ANGELIQUE Administration Sodium Chloride 10 ml 06/17/20 14:03 06/19/20 03:20 Sodium Chloride Flush 0.9% 10 Ml Syringe IVP 10 ml PRN PRN Administration NEEDED PER PROVIDER ORDERS Sodium Chloride 10 ml 06/17/20 17:00 06/20/20 03:10 Sodium Chloride Flush 0.9% 10 Ml Syringe IVP 10 ml 0100,0900,1700 [facility] Administration Warfarin Sodium 5 mg 06/19/20 14:00 06/20/20 13:26 Warfarin 5 Mg Tablet PO 5 mg SuTuThSa@1400 [facility] Administration - Lab Result Fish Bone Diagrams: 06/20/20 04:40 06/20/20 04:40 - Additional Planning My Orders: My Active Orders 06/19/20 14:00 Warfarin [Coumadin] 5 mg PO SuTuThSa@1400 06/20/20 07:45 Blood Culture [CULTURE, BLOOD #1] [RM] Routine 06/20/20 08:30 Blood Culture [CULTURE, BLOOD #2] [] Routine 06/21/20 14:00 Warfarin [Coumadin] 2.5 mg PO MoWeFr@1400 Subjective - Subjective Patient Reports: Other (Resting comfortably in bed. His was at bedside. He denied any complaints. No blood in bowel movement or dark tarry stools.) Objective Vital Signs: Vital Signs - 24 hr 06/19/20 06/19/20 06/20/20 15:42 20:09 01:34 Temperature 36.6 C 37.4 C 36.6 C Heart Rate [ 82 70 82 Brachial] Respiratory 20 20 20 Rate Blood Pressure [Left Brachial artery] Blood Pressure 117/74 111/59 L 110/60 [Right Brachial artery] O2 Saturation 96 96 92 06/20/20 06/20/20 06/20/20 05:20 08:00 12:03 Temperature 37.4 C 37.3 C 37.0 C Heart Rate [ 76 77 72 Brachial] Respiratory 16 18 19 Rate Blood Pressure 106/56 L 113/60 118/66 [Left Brachial artery] Blood Pressure [Right Brachial artery] O2 Saturation 93 94 95 Oxygen O2 Source Room air I&O (Last 24 Hrs): Intake and Output Totals x24h 06/18/20 06/19/20 06/20/20 23:59 23:59 23:59 Intake Total 2202.944 1920 590 Output Total 2475 600 775 Balance -386.700 9710 -185 General: Alert, Oriented x3, Cooperative, No acute distress HEENT: PERRLA, EOMI Neck: Supple, No JVD Neuro: Alert, Non Focal, Oriented Times 3 Cardiovascular: Regular rate, Other (murmur noted) Respiratory: Chest non-tender, No respiratory distress, Breath sounds nml Abdomen: Normal bowel sounds, Soft Extremities: No clubbing, No edema, No tenderness/swelling - Results Results: Laboratory Results WBC 4.5 x10^3/uL (4.8-10.8) L 06/20/20 04:40 RBC 2.49 10^6/uL (4.70-6.10) L 06/20/20 04:40 Hgb 7.6 g/dL (14.0-18.0) L 06/20/20 04:40 Hct 23.9 % (42.0-52.0) L 06/20/20 04:40 MCV 96.0 fL (80.0-94.0) H 06/20/20 04:40 MCH 30.5 pg (27.0-31.0) 06/20/20 04:40 MCHC 31.8 g/dL (32.0-36.0) L 06/20/20 04:40 RDW 15.0 % (12.0-15.0) 06/20/20 04:40 Plt Count 133 10^3/uL (130-450) 06/20/20 04:40 MPV 9.9 fL (7.4-11.4) 06/20/20 04:40 Reticulocyte % (Auto) 4.02 % (0.5-2.3) H 06/18/20 14:25 Neut # (Auto) 3.1 10^3/uL (1.5-6.6) 06/20/20 04:40 Lymph # (Auto) 0.8 10^3/uL (1.5-3.5) L 06/20/20 04:40 [place] # (Auto) 0.5 10^3/uL (0.0-1.0) 06/20/20 04:40 Eos # (Auto) 0.1 10^3/uL (0.0-0.7) 06/20/20 04:40 Baso # (Auto) 0.0 10^3/uL (0.0-0.1) 06/20/20 04:40 Absolute Nucleated RBC 0.00 x10^3/uL 06/20/20 04:40 Nucleated RBC % 0.0 /100WBC 06/20/20 04:40 Absolute Retic 0.104 10^6/uL (0.020-0.110) 06/18/20 14:25 PT 23.3 secs (9.9-12.6) H 06/20/20 04:40 INR 2.2 (0.8-1.2) H 06/20/20 04:40 Sodium 134 mmol/L (135-145) L 06/20/20 04:40 Potassium 4.2 mmol/L (3.5-5.0) 06/20/20 04:40 Chloride 102 mmol/L (101-111) 06/20/20 04:40 Carbon Dioxide 23 mmol/L (21-32) 06/20/20 04:40 Anion Gap 9.0 (6-13) 06/20/20 04:40 BUN 38 mg/dL (6-20) H 06/20/20 04:40 Creatinine 1.7 mg/dL (0.6-1.2) H 06/20/20 04:40 Estimated GFR (MDRD) 39 (>89) L 06/20/20 04:40 Glucose 116 mg/dL (70-100) H 06/20/20 04:40 Lactic Acid 1.1 mmol/L (0.5-2.2) 06/17/20 11:27 Calcium 8.2 mg/dL (8.5-10.3) L 06/20/20 04:40 Iron 32 ug/dL (45-182) L 06/18/20 14:25 TIBC 344 ug/dL (250-450) 06/18/20 14:25 % Saturation 9 % (20-50) L 06/18/20 14:25 Transferrin 246 mg/dL (180-329) 06/18/20 14:25 Ferritin 19.2 ng/mL (23.9-336.2) L 06/18/20 14:25 Total Bilirubin 0.5 mg/dL (0.2-1.0) 06/17/20 11:27 AST 23 IU/L (10-42) 06/17/20 11:27 ALT 18 IU/L (10-60) 06/17/20 11:27 Alkaline Phosphatase 49 IU/L (42-121) 06/17/20 11:27 Lactate Dehydrogenase 123 IU/L (91-225) 06/18/20 14:25 Troponin I High Sens 18.2 ng/L (2.3-19.7) 06/18/20 14:25 Total Protein 7.2 g/dL (6.7-8.2) 06/17/20 11:27 Albumin 3.7 g/dL (3.2-5.5) 06/17/20 11:27 Globulin 3.5 g/dL (2.1-4.2) 06/17/20 11:27 Albumin/Globulin Ratio 1.1 (1.0-2.2) 06/17/20 11:27 Vitamin B12 416 pg/mL (180-914) 06/18/20 14:25 TSH 5.81 uIU/mL (0.34-5.60) H 06/18/20 04:10 Urine Color YELLOW 06/17/20 11:33 Urine Clarity CLEAR (CLEAR) 06/17/20 11:33 Urine pH 6.0 PH (5.0-7.5) 06/17/20 11:33 Ur Specific [place] 1.010 (1.002-1.030) 06/17/20 11:33 Urine Protein NEGATIVE mg/dL (NEGATIVE) 06/17/20 11:33 Urine Glucose (UA) NEGATIVE mg/dL (NEGATIVE) 06/17/20 11:33 Urine Ketones NEGATIVE mg/dL (NEGATIVE) 06/17/20 11:33 Urine Occult Blood NEGATIVE (NEGATIVE) 06/17/20 11:33 Urine Nitrite NEGATIVE (NEGATIVE) 06/17/20 11:33 Urine Bilirubin NEGATIVE (NEGATIVE) 06/17/20 11:33 Urine Urobilinogen 0.2 (NORMAL) E.U./dL (NORMAL) 06/17/20 11:33 Ur Leukocyte Esterase NEGATIVE (NEGATIVE) 06/17/20 11:33 Urine RBC 0-5 /HPF (0-5) 06/17/20 11:33 Urine WBC 0-3 /HPF (0-3) 06/17/20 11:33 Ur Squamous Epith Cells FEW Squamous (<= Few) 06/17/20 11:33 Urine Bacteria Rare /HPF (None Seen) 06/17/20 11:33 Urine Culture Comments NOT INDICATED 06/17/20 11:33 Nasal Adenovirus (PCR) NOT DETECTED 06/17/20 14:19 Nasal B. parapertussis DNA (PCR) NOT DETECTED 06/17/20 14:19 Nasal Coronavir 229E PCR NOT DETECTED 06/17/20 14:19 Nasal Coronavir HKU1 PCR NOT DETECTED 06/17/20 14:19 Nasal Coronavir NL63 PCR NOT DETECTED 06/17/20 14:19 Nasal Coronavir OC43 PCR NOT DETECTED 06/17/20 14:19 Nasal Enterovir/Rhinovir PCR NOT DETECTED 06/17/20 14:19 Nasal Influenza B PCR NOT DETECTED 06/17/20 14:19 Nasal Influenza A PCR NOT DETECTED 06/17/20 14:19 Nasal Parainfluen 1 PCR NOT DETECTED 06/17/20 14:19 Nasal Parainfluen 2 PCR NOT DETECTED 06/17/20 14:19 Nasal Parainfluen 3 PCR NOT DETECTED 06/17/20 14:19 Nasal Parainfluen 4 PCR NOT DETECTED 06/17/20 14:19 Nasal RSV (PCR) NOT DETECTED 06/17/20 14:19 Nasal B.pertussis DNA PCR NOT DETECTED 06/17/20 14:19 Nasal C.pneumoniae (PCR) NOT DETECTED 06/17/20 14:19 [place] Human Metapneumo PCR NOT DETECTED 06/17/20 14:19 Nasal M.pneumoniae (PCR) NOT DETECTED 06/17/20 14:19 Nasal SARS-CoV-2 (PCR) NOT DETECTED 06/17/20 14:19 Last Dose Date unknown 06/17/20 11:27 Last Dose Time unknown 06/17/20 11:27 Digoxin 1.1 ng/mL 06/17/20 11:27 Blood Type O POSITIVE 06/17/20 12:17 Antibody Screen NEGATIVE 06/17/20 12:17 Crossmatch IS Only See Detail 06/17/20 12:17 - Procedures Procedures: Procedures CONTROL BLEEDING IN GASTROINTESTINAL TRACT, ENDO (02/27/20) EXCISION OF DUODENUM, ENDO, DIAGN (02/27/20) EXCISION OF ESOPHAGUS, ENDO, DIAGN (02/27/20) EXCISION OF STOMACH, PYLORUS, ENDO, DIAGN (02/27/20) EXTIRPATION OF MATTER FROM ESOPHAGOGASTRIC JUNCTION, ENDO (02/27/20) INSPECTION OF LOWER INTESTINAL TRACT, ENDO (02/27/20) PACKED CELL TRANSFUSION (08/04/13) Sepsis Event Note (H) - Evaluation Current Stage of Sepsis: Ruled out ABX Reporting Has patient been on IV antibiotics over the past 48 hours?: Yes
[2020-06-20] MEDS: ACETAMINOPHEN 325 MG TABLET PO PRN (15:48)
[2020-06-20] MEDS: QUEtiapine 100 MG TABLET PO SCH (20:27)
[2020-06-20] MEDS: SODIUM CHLORIDE FLUSH 0.9% 10 ML SYRINGE IVP PRN (20:28)
[2020-06-21] MEDS: SODIUM CHLORIDE FLUSH 0.9% 10 ML SYRINGE IVP SCH ×2 (00:58→08:08)
[2020-06-21] MEDS: SODIUM CHLORIDE FLUSH 0.9% 10 ML SYRINGE IVP PRN (02:45)
[2020-06-21] MEDS: levoFLOXacin 500 MG/100 ML 500 MG/100 ML BAG IV SCH (02:45)
[2020-06-21 05:32] LABS: BASOPHILS % (AUTO) 0.3 %; EOSINOPHILS # (AUTO) 0.1 10^3/uL (0.0-0.7); EOSINOPHILS % (AUTO) 2.3 %; HCT - HEMATOCRIT 23.4 % (42.0-52.0); HGB - HEMOGLOBIN 7.3 g/dL (14.0-18.0); LYMPHOCYTES # (AUTO) 0.7 10^3/uL (1.5-3.5); LYMPHOCYTES % (AUTO) 18.1 %; MEAN CORPUSCULAR HEMOGLOBIN 29.7 pg (27.0-31.0); MEAN CORPUSCULAR HGB CONC 31.2 g/dL (32.0-36.0); MEAN CORPUSCULAR VOLUME 95.1 fL (80.0-94.0); MEAN PLATELET VOLUME 9.1 fL (7.4-11.4); MONOCYTES # (AUTO) 0.5 10^3/uL (0.0-1.0); MONOCYTES % (AUTO) 12.5 %; NEUTROPHILS # (AUTO) 2.6 10^3/uL (1.5-6.6); NEUTROPHILS % (AUTO) 66.3 %; PLT - PLATELET COUNT 117 10^3/uL (130-450); RED BLOOD COUNT 2.46 10^6/uL (4.70-6.10); RED CELL DISTRIBUTION WIDTH 14.9 % (12.0-15.0); WHITE BLOOD COUNT 3.9 x10^3/uL (4.8-10.8)
[2020-06-21 05:37] LABS: INR 2.4 (0.8-1.2); PT - PROTHROMBIN TIME 24.8 secs (9.9-12.6)
[2020-06-21 05:49] LABS: CALCIUM 8.3 mg/dL (8.5-10.3); CREATININE 1.7 mg/dL (0.6-1.2); POTASSIUM 3.9 mmol/L (3.5-5.0)
[2020-06-21] MEDS: LEVOTHYROXINE 88 MCG TABLET PO SCH (06:42)
[2020-06-21] MEDS: FERROUS GLUCONATE 324 MG TABLET PO SCH (08:05)
[2020-06-21] MEDS: DIGOXIN 125 MCG TABLET PO SCH (08:05)
[2020-06-21] MEDS: PANTOPRAZOLE 40 MG VIAL IVP SCH (08:05)
[2020-06-21] MEDS: MAGNESIUM OXIDE 400 MG TABLET PO SCH (08:05)
[2020-06-21] MEDS: SERTRALINE 50 MG TABLET PO SCH (08:05)
[2020-06-21] MEDS: METOPROLOL SUCCINATE 50 MG TABLET PO SCH (08:07)
--- NOTE | 2020-06-21 12:45 | DISCHARGE SUMMARY ---
Discharge Summary Admit Date: 06/17/20 Discharge Date: 06/21/20 Discharging Provider: Alexis Springer Primary Care Provider: Deirdre Munoz Condition at Discharge: Serious Discharge Disposition: 01 Home, Self Care - DIAGNOSES Admission Diagnoses: GI bleed Anemia Acute on chronic kidney injury History of bioprosthetic mitral heart valve History of congestive heart disease Atrial fibrillation Hypothyroidism Bipolar disorder Discharge Diagnoses with Status of Each Condition: Bacteremia: Acute. E. coli grew. Patient discharged with cefdinir 300 mg p.o. twice daily x 14 days Anemia: Acute. Patient was transfused 2 units of packed red blood cells during the hospital stay GI bleed: No further work-up was done. To follow-up with general surgery in about 4 weeks. Acute on chronic kidney injury: Back to baseline Creatinine of 1.7 and estimated GFR of 39. History of bioprosthetic mitral heart valve: Chronic History of congestive heart disease: Chronic Atrial fibrillation: Chronic Hypothyroidism: Chronic Bipolar disorder: Chronic - HPI History of Present Illness: Per HPI: This is a 79-year-old man with a past medical history of recurrent GI bleeding, UTI, prosthetic heart valve on Coumadin since 2003, pacemaker, Congestive heart failure, Hypertension, Coronary artery disease, MD, Atrial fibrillation, anemia, Sleep apnea on CPAP use, Hypothyroidism, GERD, chronic vision loss, chronic hearing loss, Major depression, bipolar disease, osteomyelitis, gout, chronic back pain, who presents ER complain of weakness. pt report his come back home to bring his CPAP back to hospital. he report it is his told him back to hospital. He report he feel some back pain and right lower extremity pain as his usual pain resource. It lasted for two years, he report " I have high pain tolerance." he also feel some weakness as well. He denies chest pain, fever, chill. he report he had "funny heart sound", heart murmur for over 10 yrs. He report he had heart pacemaker which was charged with battery about 1 yrs ago. It seems pt present nonspecific symptoms. Route lab test show pt has HGB 7.4, significant drop from 11.6 about 3 weeks. occult blood test is positive. Pt had PT/INR on 41/4. pt took Coumadin for his Bioprosthetic mitral valve. BUN/creatinine is 85/2.9. In February 2020, he underwent an EGD and colonoscopy which reveal a phytobezoar and gastritis. ER called surgeon for consulting of GI bleeding. In ER, patient is afebrile, patient hemodynamically stable. Given above medical condition, medical team was consulted for admission this patient. Discussed the care goal with patient, patient hope to have DNR. Patient was transfused 1 unit of packed red blood cell at admission for hemoglobin of 7.4. His hemoglobin to 8.1 but then steadily trickled down to 7.3 by the day of discharge. Consequently he was transfused another unit of packed red blood cells which brought his hemoglobin up to 8.6. Patient had extensive work-up for GI bleed which included an EGD about 4 months ago with no definite site of bleeding noted. Consequently endoscopy was not repeated. The CT abdomen/pelvis done 06/18/20 showed mild diffuse gastric antral wall thickening without evidence of gastric outlet obstruction. No evidence of acute abdominal process. Mild cardiomegaly, coronary artery disease. Minimal left pleural effusion. Generalized atherosclerosis. Recommendations were to discontinue aspirin upon discharge. He was also discharged home with a prescription of Carafate 1 g 4 times daily for 12 days. He is to take Protonix 40 mg p.o. bid. Coumadin was continued due to his mechanical valve. The INR goal is between 2.5 and 3.5. By discharge the patient's INR was 2.4. Patient underwent 2D echocardiogram on 06/18/2020 which showed an overall left ventricular systolic function which was mildly impaired with an ejection fraction of 45 to 50%. Diastolic function was indeterminate. There was no regional wall motion abnormalities seen. Mild right ventricular enlargement. The right ventricular systolic function was normal. Severe right atrial enlargement. The aortic valve was trileaflet. Mechanical [place] mitral valve replacement is well-seated with minimal regurgitation. There was no pericardial effusion noted. There was no mass or thrombus. There was no pleural effusion noted. RVSP was 44 mmHg. Patient had one blood culture on 06/17/2020 grew E. coli which was pansensitive. He was treated with Levaquin 500 mg IV daily while in the hospital. Upon discharge he was placed on cefdinir 300 mg p.o. twice daily x14 days. The source of the E. coli infection is undetermined given that the patient's urine analysis was unremarkable, CT scan did not show any acute abdominal process and his 2D echocardiogram did not show any vegetation. However on 4/1 8 and 06/21 patient's WBC was 4.5 and 3.9 respectively. He is expected to follow-up with general surgery in the outpatient setting in 4 weeks. He is to follow-up with his primary care physician in 5 to 7 days. It is e xpected that an INR check will be done within the week. - ALLERGIES Allergies/Adverse Reactions: Allergies Allergy/AdvReac Type Severity Reaction Status Date / Time hydromorphone HCl * Allergy Severe Hallucinati Verified 06/17/20 11:10 [From Dilaudid] ons codeine Allergy Unknown Verified 06/17/20 11:10 duloxetine HCl * Allergy Anxiety Verified 06/17/20 11:10 [From Cymbalta] gabapentin [From Neurontin] Allergy Anxiety Verified 06/17/20 11:10 oxycodone HCl * Allergy Hallucinati Verified 06/17/20 11:10 [From OxyContin] ons - MEDICATIONS Home Medications: Ambulatory Orders Medication Instructions Recorded Confirmed Diazepam 5 mg PO QPM PRN 07/27/13 06/17/20 Digoxin 125 mcg PO DAILY 07/27/13 06/17/20 Dutasteride [Avodart] 0.5 mg PO DAILY 07/27/13 06/17/20 Furosemide [Lasix] 40 mg PO DAILY 07/27/13 06/17/20 Levothyroxine [Synthroid] 75 mcg PO DAILY 07/27/13 06/17/20 Magnesium Chloride [Slo Mag] 64 mg PO BID 07/27/13 06/17/20 Sertraline HCl 100 mg PO BID 07/27/13 06/17/20 Temazepam 15 mg PO QPM PRN 07/27/13 06/17/20 Trospium Chloride [Sanctura] 60 mg PO DAILY MDD at [facility] 07/27/13 06/17/20 Warfarin [Coumadin] 5 mg PO SUTUTHSA 07/27/13 06/17/20 allopurinoL [Allopurinol] 150 mg PO QPM 07/27/13 06/17/20 Cyanocobalamin/Folic Acid [Vitamin 1 tab PO DAILY 08/12/13 06/17/20 [id number] Acid Tablet] Warfarin [Coumadin] 2.5 mg PO MOWEFR 09/18/16 06/17/20 lisinopriL [Lisinopril] 5 mg PO DAILY 09/18/16 06/17/20 Calcium Carbonate/Vitamin D3 1 tab PO BID 02/27/20 06/17/20 [Calcium 500 mg-Vit D3 600 Unit] Metoprolol Succinate [Toprol Xl] 100 mg PO DAILY 02/27/20 06/17/20 Quetiapine Fumarate [Seroquel Xr] 300 mg PO QPM 02/27/20 06/17/20 Pantoprazole [Protonix] 40 mg PO QDAC #30 tablet 02/29/20 06/17/20 Hydrocodone/Acetaminophen [Vicodin 1 tab PO PRN 06/17/20 Hp 10-300 mg Tablet] Cefdinir 300 mg PO BID 14 Days #28 cap 06/21/20 Pantoprazole [Protonix] 40 mg PO BID 30 Days #60 tablet 06/21/20 Sucralfate [Carafate] 1 gm PO QID #500 ml 06/21/20 - PHYSICAL EXAM AT DISCHARGE General Appearance: positive: No acute distress, Alert Eyes Bilateral: positive: PERRL, EOMI ENT: positive: No signs of dehydration Neck: positive: No JVD, Trachea midline Cardiovascular: positive: Irregularly irregular, Systolic murmur Abdomen: positive: Non-tender, Nml bowel sounds, No distention. negative: Guarding, Rebound Back: positive: Nml inspection Skin: positive: Color nml, No rash, Warm, Dry Extremities: positive: Non-tender, Nml appearance, No pedal edema Neurologic/Psychiatric: positive: Oriented x3, Mood/affect nml - LABS Result Diagrams: 06/21/20 15:00 06/21/20 05:12 - SEPSIS Current Stage of Sepsis: Ruled out - TIME SPENT Time Spent in Discharge (Minutes): 30
--- NOTE | 2020-06-21 12:48 | Discharge Plan ---
Discharge Plan Problem Reviewed?: Yes Disposition: Home, Self Care Condition: Serious Prescriptions: Sucralfate [Carafate] 1 gm PO QID #500 ml Cefdinir 300 mg PO BID 14 Days #28 cap Diet: Regular Activity Restrictions: Activity as Tolerated No Smoking: If you smoke, Please STOP! Call for help. Follow-up with: Grayson Raymond MD [Primary Care Provider] -
[2020-06-21] MEDS ORDERED: WARFARIN 2.5 MG TABLET PO SCH (14:00)
[2020-06-21 15:08] LABS: BASOPHILS % (AUTO) 0.2 %; EOSINOPHILS # (AUTO) 0.1 10^3/uL (0.0-0.7); EOSINOPHILS % (AUTO) 2.9 %; HCT - HEMATOCRIT 27.7 % (42.0-52.0); HGB - HEMOGLOBIN 8.6 g/dL (14.0-18.0); LYMPHOCYTES # (AUTO) 0.8 10^3/uL (1.5-3.5); LYMPHOCYTES % (AUTO) 18.1 %; MEAN CORPUSCULAR HEMOGLOBIN 29.3 pg (27.0-31.0); MEAN CORPUSCULAR VOLUME 94.2 fL (80.0-94.0); MEAN PLATELET VOLUME 9.9 fL (7.4-11.4); MONOCYTES # (AUTO) 0.5 10^3/uL (0.0-1.0); MONOCYTES % (AUTO) 12.9 %; NEUTROPHILS # (AUTO) 2.8 10^3/uL (1.5-6.6); NEUTROPHILS % (AUTO) 65.4 %; PLT - PLATELET COUNT 136 10^3/uL (130-450); RED BLOOD COUNT 2.94 10^6/uL (4.70-6.10); RED CELL DISTRIBUTION WIDTH 15.6 % (12.0-15.0); WHITE BLOOD COUNT 4.2 x10^3/uL (4.8-10.8)
[2020-06-21 16:04] VITALS: BP 101/58
== END 2020-06-21 16:15 | disposition home or self-care (01) | DRG 871 ==
LOC: EDUNIT# → ED 10:59 → MS2 14:03
PROVIDERS: ADMIT Nurse Practitioner Gerontology; ATTEND Internal Medicine
PROC: 30233N1 Transfusion of Nonautologous Red Blood Cells into Peripheral Vein, Percutaneous Approach (ICD-10-PCS; principal; 2020-06-21)
DX: K92.2 Gastrointestinal hemorrhage, unspecified (principal); R78.81 Bacteremia; R79.1 Abnormal coagulation profile; K29.71 Gastritis, unspecified, with bleeding; I13.0 Hypertensive heart and chronic kidney disease with heart failure and stage 1 through stage 4 chronic kidney disease, or unspecified chronic kidney disease; N17.9 Acute kidney failure, unspecified; Z98.61 Coronary angioplasty status; I11.0 Hypertensive heart disease with heart failure; D50.0 Iron deficiency anemia secondary to blood loss (chronic); N18.9 Chronic kidney disease, unspecified; I50.9 Heart failure, unspecified; I48.91 Unspecified atrial fibrillation; Z95.2 Presence of prosthetic heart valve; E03.9 Hypothyroidism, unspecified; I25.10 Atherosclerotic heart disease of native coronary artery without angina pectoris; G47.30 Sleep apnea, unspecified; K21.9 Gastro-esophageal reflux disease without esophagitis; I25.2 Old myocardial infarction; H54.7 Unspecified visual loss; F31.9 Bipolar disorder, unspecified; H91.90 Unspecified hearing loss, unspecified ear; Z20.822 Contact with and (suspected) exposure to COVID-19; R63.4 Abnormal weight loss; Z68.33 Body mass index [BMI] 33.0-33.9, adult; M54.9 Dorsalgia, unspecified; G89.29 Other chronic pain; Z95.810 Presence of automatic (implantable) cardiac defibrillator; Z79.01 Long term (current) use of anticoagulants; Z79.82 Long term (current) use of aspirin; Z79.899 Other long term (current) drug therapy
CPT/HCPCS: 36415; 74176; 80048; 80053; 80162; 81001; 82272; 82607; 82728; 83540; 83605; 83615; 84443; 84466; 84484; 85014; 85018; 85025; 85045; 85610; 86850; 86900; 86901; 86920; 87040; 87150; 87181; 87631; 93306; 96374; 99281; 99285; A9270; P9016; Q9967; 0202U; 87086

== ENCOUNTER 2020-06-25 10:49 | Outpatient (CLI) | payer MEDICARE, OTHER ==
[2020-06-25 14:39] LABS: BASOPHILS % (AUTO) 0.5 %; EOSINOPHILS # (AUTO) 0.1 10^3/uL (0.0-0.7); EOSINOPHILS % (AUTO) 2.9 %; HCT - HEMATOCRIT 30.2 % (42.0-52.0); HGB - HEMOGLOBIN 9.5 g/dL (14.0-18.0); LYMPHOCYTES # (AUTO) 0.8 10^3/uL (1.5-3.5); LYMPHOCYTES % (AUTO) 20.1 %; MEAN CORPUSCULAR HEMOGLOBIN 29.3 pg (27.0-31.0); MEAN CORPUSCULAR HGB CONC 31.5 g/dL (32.0-36.0); MEAN CORPUSCULAR VOLUME 93.2 fL (80.0-94.0); MEAN PLATELET VOLUME 9.8 fL (7.4-11.4); MONOCYTES # (AUTO) 0.3 10^3/uL (0.0-1.0); MONOCYTES % (AUTO) 6.5 %; NEUTROPHILS # (AUTO) 2.7 10^3/uL (1.5-6.6); NEUTROPHILS % (AUTO) 69.5 %; PLT - PLATELET COUNT 187 10^3/uL (130-450); RED BLOOD COUNT 3.24 10^6/uL (4.70-6.10); WHITE BLOOD COUNT 3.8 x10^3/uL (4.8-10.8)
== END 2020-06-25 10:50 | disposition home or self-care (01) ==
LOC: LAB.S 10:49
PROVIDERS: ATTEND Internal Medicine Cardiovascular Disease
DX: I48.91 Unspecified atrial fibrillation (principal); Z95.4 Presence of other heart-valve replacement; D64.9 Anemia, unspecified; R78.81 Bacteremia
CPT/HCPCS: 36415; 85025; 85610; 87040

== ENCOUNTER 2020-07-12 11:19 | Outpatient (CLI) | payer MEDICARE, OTHER ==
[2020-07-12 15:23] LABS: BASOPHILS % (AUTO) 0.3 %; EOSINOPHILS # (AUTO) 0.1 10^3/uL (0.0-0.7); EOSINOPHILS % (AUTO) 3.5 %; HCT - HEMATOCRIT 31.7 % (42.0-52.0); HGB - HEMOGLOBIN 10.1 g/dL (14.0-18.0); LYMPHOCYTES # (AUTO) 0.8 10^3/uL (1.5-3.5); LYMPHOCYTES % (AUTO) 20.7 %; MEAN CORPUSCULAR HEMOGLOBIN 29.6 pg (27.0-31.0); MEAN CORPUSCULAR HGB CONC 31.9 g/dL (32.0-36.0); MEAN PLATELET VOLUME 10.3 fL (7.4-11.4); MONOCYTES # (AUTO) 0.4 10^3/uL (0.0-1.0); MONOCYTES % (AUTO) 9.1 %; NEUTROPHILS # (AUTO) 2.6 10^3/uL (1.5-6.6); NEUTROPHILS % (AUTO) 66.1 %; PLT - PLATELET COUNT 150 10^3/uL (130-450); RED BLOOD COUNT 3.41 10^6/uL (4.70-6.10); RED CELL DISTRIBUTION WIDTH 15.5 % (12.0-15.0)
[2020-07-12 15:59] LABS: % IRON SATURATION 44 % (20-50); IRON 164 ug/dL (45-182); TOTAL IRON BINDING CAPACITY 375 ug/dL (250-450); TRANSFERRIN 268 mg/dL (180-329)
[2020-07-12 16:18] LABS: FERRITIN 29.9 ng/mL (23.9-336.2)
== END 2020-07-12 11:20 | disposition home or self-care (01) ==
LOC: LAB.S 11:19
PROVIDERS: ATTEND Internal Medicine Cardiovascular Disease
DX: I48.91 Unspecified atrial fibrillation (principal); Z95.4 Presence of other heart-valve replacement; D64.9 Anemia, unspecified; R78.81 Bacteremia
CPT/HCPCS: 36415; 82607; 82728; 82746; 83540; 84466; 85025; 85610; 87040